=== PATIENT | female | born 1955 | race Caucasian/White ===

== ENCOUNTER → 2017-10-24 15:22 | Outpatient (CLI) | payer BC, SELFPAY ==
--- NOTE | 2017-10-24 15:37 | MM_ITS ---
MM Dig screening mamm BI w/CAD CAD Screening COMPARISON: Digital mammograms 10/21/2016 and 10/21/2015 INDICATION: There is no personal or family history of breast cancer TECHNIQUE: Standard CC and MLO images were obtained. R2 CAD reviewed. FINDINGS: Moderate fiber glandular densities are seen in central portions of both breasts. The findings are bilateral and symmetrical. There is no suspicious lesion and no suspicious microcalcifications. IMPRESSION: Stable exam with no suspicious lesion seen recommend yearly follow-up BI-RADS Category: 1 Negative RECOMMENDED FOLLOW-UP: 1YR - 1 YEAR FOLLOW-UP (A letter has been sent to the patient regarding results of the study.)
--- NOTE | 2017-10-24 15:37 | XR_ITS ---
XR DEXA axial skeleton HISTORY: ITS.REASON: POST MENOPAUSAL ORDERING PHYSICIAN: Richard Thompson MD PATIENT AGE: 62 years COMPARISON: None FINDINGS: The BMD measured at the AP Spine L1-L4 is 1.205 g/cm squared with a T score of 0.2 . This is considered normal according to the World Health Organization criteria. Fracture risk is low. Left femoral neck density has a T score of -0.6 which is within normal limits. IMPRESSION: Normal bone density. Follow-up exam recommended in October 2019
== END ==
PROVIDERS: Family Provider Family Medicine; PCP Family Medicine; Visit Provider Family Medicine
DX: Z12.31 Encounter for screening mammogram for malignant neoplasm of breast (principal); Z78.0 Asymptomatic menopausal state
CPT/HCPCS: 77067; 77080

== ENCOUNTER → 2017-12-22 14:31 | Outpatient (CLI) | payer BC, SELFPAY ==
--- NOTE | 2017-12-22 14:36 | MR_ITS ---
MR cervical spine wo con, MR 3-d myelogram/MRCP Ordering Physician: Natalie Montez Patient Age: 62 years: Female HISTORY: ITS.REASON: CERVICAL SPINE PAIN Neck pain and stiffness one year. Also dizzy when moves head and neck too fast. TECHNIQUE: Sagittal STIR, T1, T2, axial T1 and T2. On 1.5T Siemens wide bore MRI. 3-D MR myelogram image set obtained & performed on MRI workstation. Additional sagittal thin section T2 weighted dataset obtained from this latter acquisition as well (---76 CPT) COMPARISON : Plain films of C-spine 07/20/2017 . FINDINGS Cranial cervical junction is normal. Generous volume underlying osseous spinal canal C2/3 disc intact. Cord normal. The second C3/4. Minimal small focal central disc protrusion. C4/5. Disc intact. C5/6. Disc space narrowing and spondylosis. Mainly Hard disc posteriorly with additional uncovertebral hypertrophy most pronounced on the left.. This leftward spurring and mainly hard disc does efface the thecal sac,,. The leftward spurring and hard disc effaces the cervical cord to the left. Minor bilateral encroachment due to the posterior spurring and was nicely demonstrated on previous plain film C-spine July 2014 as well.. C6/7. Degenerative disc space narrowing. Mild Reactive endplate changes posteriorly at the narrowed disc space. Broad-based mixed disc protrusion. Disc extends slightly beyond the osteophytes at this level to abut the cervical cord. There is some slight flattening of the cervical cord to the left due to such. It C7/T1 disc intact T1/T2 scant central disc protrusion T2/T3.. Focal disc protrusion/mild focal disc herniation is seen right paracentral at this level... It is seen only on the sagittal images was not included with the axial images but is a notable finding.. T3/4 disc is the lowest disc imaged, included & unremarkable. There is some mild facet hypertrophy at this level. Only minor Degenerative facet changes are seen throughout the C-spine. But no exuberant facet hypertrophy noted.. The facet and posterior element hypertrophy become slightly more evident at the upper T-spine. 3-D MR myelogram image set shows shows only minimal indentation upon the anterior aspect of thecal sac at C6/7 & C5/6.. Because of the generous caliber thecal sac there is left impact from these features upon the on the 3-D myelogram benign initially expected from axial image.. IMPRESSION:...... 1. Degenerative disc changes oh with Cervical spondylosis most pronounced C5/C6 & C6/7. . Moderate focal disc herniation to the right at T 2/3 also noted C5-C6. Disc space narrowing with diffuse posterior hypertrophic ridging. Spurring & uncovertebral hypertrophy most pronounced to left paracentral or features mildly effaces the left aspect of cervical cord. C6/7. Degenerative disc space narrowing broad-based mixed disc protrusion.Broad-based disc/osteophyte just abuts and slightly flattens the cervical cord at midline and to the left.... T2/3.: Only the sagittal images demonstrate this focal disc herniation right paracentral region
== END ==
PROVIDERS: Family Provider Family Medicine; PCP Family Medicine; Visit Provider Nurse Practitioner
DX: M54.2 Cervicalgia (principal)
CPT/HCPCS: 72141; 76376

== ENCOUNTER → 2018-02-12 13:56 | Outpatient (CLI) | payer BC, SELFPAY ==
[2018-02-12 16:45] LABS: Blood Urea Nitrogen 13 mg/dL (7-18); Creatinine,Serum 0.98 mg/dL (0.55-1.02); Estimated Glomerular Filt Rate 57 ml/min (>60); GFR (African American) 69 ML/MIN (>60)
== END ==
PROVIDERS: Visit Provider Physician Assistant Medical
DX: Z00.00 Encounter for general adult medical examination without abnormal findings (principal)
CPT/HCPCS: 36415; 82565; 84520

== ENCOUNTER → 2018-02-15 08:46 | Outpatient (CLI) | payer BC, SELFPAY ==
--- NOTE | 2018-02-15 08:51 | MR_ITS ---
MR lumbar spine wo con, MR 3-d myelogram/MRCP HISTORY: LBP. Rt buttox pain. Symptoms XYRS. ITS.REASON: LOW BACK PAIN ORDERING PHYSICIAN: Curry Rhodes PATIENT AGE: 62 years Comparison: None TECHNIQUE: Standard multiplanar multiecho sequences are performed without contrast. 3-D MIP and myelographic images are also rendered and reviewed FINDINGS: The spinal cord ends at the L1-L2 level. There is mild lumbar scoliosis convex left which measures 13 degrees. T12-L1: Unremarkable. L1-L2: There is a bulging disc with a small central disc protrusion/herniation for a slightly eccentric toward the left without obvious impingement L2-L3: Concentric bulging disc along with facet and ligamentum flavum hypertrophy with mild bilateral lateral recess narrowing. There is 6 mm right lateral translation of L2 on L3. L3-L4: Degenerative disc disease with concentric bulging disc. There is some mild left foraminal disc protrusion as well. There is moderate to severe right foraminal narrowing and moderate left foraminal narrowing L4-L5: Degenerative disc disease with concentric bulging disc which is eccentric toward the right with severe facet and ligamentum flavum hypertrophy with severe bilateral lateral recess narrowing and moderate right foraminal narrowing and moderate to severe left foraminal narrowing. There is transverse narrowing of the canal at 8 mm. L5-S1: Degenerative disc disease L5-S1 with bulging disc along with facet and ligamentum flavum hypertrophy there is an oval area of isoechogenicity measuring 12 mm x 6 mm in the left foraminal region and may be due to small disc osteophyte complex with resultant severe left-sided foraminal narrowing. Incidental note made of a small left renal cyst. IMPRESSION: 1. Abnormal MRI of the lumbar spine with multilevel lumbar spondylosis with degenerative disc disease, disc bulges and facet ligamentum flavum hypertrophy with foraminal narrowing and lateral recess narrowing. Lateral recess narrowing is most severe at L4-L5 with transverse canal stenosis at that level. Please see above for detailed description at each level 2. Bulging disc with small central disc protrusion at L1-L2 slightly eccentric toward the left. 3. Bulging disc with small disc osteophyte complex in the left foramen at L5-S1 with severe foraminal narrowing on the left. Please see above for detailed description at each level
--- NOTE | 2018-02-15 09:52 | CT_ITS ---
CT angio neck INDICATION: Syncope ITS.REASON: BLACKOUT SPELL ORDERING PHYSICIAN: Curry Rhodes PATIENT AGE: 62 years COMPARISON: None TECHNIQUE: Axial images are obtained following the bolus intravenous administration 100 mL's of Isovue-370 contrast. Sagittal and coronal reformatted and 3-D images are reviewed as well. All CT scans at the facility use one or more dose reduction, viz: automated exposure control; ma/kV adjustment per patient size (including targeted exams where dose is matched to indication; i.e. head); or iterative reconstruction technique. FINDINGS: The superior aspect of the aortic arch and great vessels have an unremarkable appearance with no stenosis. There is some minimal intimal thickening of the ostium left subclavian artery. The common carotid arteries are unremarkable and the internal carotid arteries are unremarkable. No stenosis. No significant plaque, aneurysm, or dissection is evident within the extracranial carotids. There is small amount of calcific plaque within the internal carotids intercavernous portion of the carotid arteries but no significant stenosis. The study was continued throughout the brain showing no evidence of aneurysm of the vessels of the basilar artery and vertebral arteries are unremarkable throughout their course. No intracranial mass or intracranial enhancement. The anterior aspect of the frontal lobe is not excluded in the exam. Scattered small nodes are present in the neck. There are centrilobular emphysematous changes in the upper lobes. IMPRESSION: 1. Negative CTA of the neck and head. No stenosis, aneurysm, or dissection 2. Minimal amount of calcific plaque in the cavernous and suprasellar portion of the ICAs without stenosis. 3. Centrilobular emphysema in the upper lobes
== END ==
PROVIDERS: Family Provider Family Medicine; PCP Family Medicine; Visit Provider Neurological Surgery
DX: M54.5 Low back pain (principal)
CPT/HCPCS: 70498; 72148; 76376; Q9967

== ENCOUNTER → 2018-06-29 14:21 | Outpatient (CLI) | payer BC, SELFPAY ==
--- NOTE | 2018-06-29 14:28 | CT_ITS ---
CT chest wo con HISTORY: ITS.REASON: PULMONARY NODDULE,H/O NICOTINE DEPENDENCE ORDERING PHYSICIAN: Natalie Montez PATIENT AGE: 63 years COMPARISON: 05/19/2017 Technique: Axial images obtained with sagittal and coronal reformats. All CT scans at the facility use one or more dose reduction, viz: automated exposure control, ma/kV adjustment per patient size (including targeted exams where dose is matched to indication, i.e. head), or iterative reconstruction technique. FINDINGS: No mediastinal or hilar mass or adenopathy. There are calcified nodes in the mediastinum and flori. Normal heart size. No evidence of pericardial effusion. There are centrilobular emphysematous changes 4 mm nodule right upper lobe anteriorly image #24 not readily apparent on the previous exam. 6 mm noncalcified nodule right middle lobe image #55 not significantly changed No lobar consolidation. No effusions or infiltrates. Upper abdominal images show right nephrolithiasis with 2 stones along the lower pole of the right kidney 4 and 5 mm IMPRESSION: 1. Stable right middle lobe nodule is 6 mm. Continued follow-up recommended. 2. New 4 mm nodule in the right upper lobe. Consider 6 month follow-up 3. Centrilobular emphysema
== END ==
PROVIDERS: PCP Family Medicine; Visit Provider Nurse Practitioner
DX: R91.1 Solitary pulmonary nodule (principal); Z87.891 Personal history of nicotine dependence
CPT/HCPCS: 71250

== ENCOUNTER → 2018-10-30 15:50 | Outpatient (CLI) | payer BC, SELFPAY ==
--- NOTE | 2018-10-30 15:58 | MM_ITS ---
MM Dig screening mamm BI w/CAD CAD Screening COMPARISON: Digital mammograms with CAD 10/21/2016 and 10/24/2017 INDICATION: There is no personal or family history of breast cancer TECHNIQUE: Standard CC and MLO images were obtained. R2 CAD reviewed. FINDINGS: Moderate scattered fibroglandular densities are seen throughout both breasts. There is no suspicious lesion and no suspicious microcalcifications. IMPRESSION: Moderate breast density with no suspicious lesion seen BI-RADS Category: 1 Negative RECOMMENDED FOLLOW-UP: 1YR - 1 YEAR FOLLOW-UP (A letter has been sent to the patient regarding results of the study.)
== END ==
PROVIDERS: PCP Family Medicine; Visit Provider Family Medicine
DX: Z12.31 Encounter for screening mammogram for malignant neoplasm of breast (principal)
CPT/HCPCS: 77067

== ENCOUNTER 2019-01-11 13:00 | Outpatient (RCR) | payer BC, SELFPAY ==
--- NOTE | 2018-11-22 14:33 | HMH.PTOPEV ---
PT Outpatient Evaluation Rehab PT Outpatient Evaluation Start: 11/22/18 13:36 Freq: Status: Active Protocol: Document 11/22/18 13:36 LALA (Rec: 11/22/18 14:33 LALA [id number]) Electronically Signed By Prashant Medellin, PT 11/22/18 13:36 Outpatient Therapy Subjective History Subjective History Pt reports h/o chronic LBP over the last 20-30 yrs. Most recent exacerbation has involved inermittent L sided LBP with some referred pain into the L glut mm area. Pt reports kineso-tape has improved R sided LBP, however, still has episodes of LBP (L sided) w/yardwork, housework, etc. MRI of lumbar spine, DDD, spondylosis Chief Complaint Pain,Stiff Symptom Type Ache Symptoms Relieved By Rest/Positioning,Heat Symptoms Aggravated By Bending/Stooping,Physical Activity,Twisting,Lifting Prior Functional Limitations Lifting,Housework,Bending/ Stooping Current Functional Limitations Lifting,Housework,Bending/ Stooping Symptom Description Constant but Variable Level of pain today (0-10) 2 Pain scale - at its best (0-10) 1 Pain scale - at its worst (0-10) 9 Lumbopelvic Eval Posture Thoracic Spine Posture Standing Position Neutral Lumbar Spine Posture Standing Position Flattened Assistive device Assistive Devices None / NA Gait Observation General Gait Pattern Observation No Deviations/Normal Palapation tenderness bilateral lumbar spinal tenderness Yes: 2-3/4 paraspinal tenderness Yes: 2/4 Lumbar/Sacral Palpation Findings Tenderness Accessory Movement L4 bilateral L5 bilateral Range of Motion Lumbar Spine Active Flexion Range of 0-50 Motion (degrees) Lumbar Spine Active Extension Range of 0-15 Motion (degrees) Left Lumbar Spine Lateral Flexion Active 0-15 Range of Motion (degrees) Right Lumbar Spine Lateral Flexion 0-15 Active Range of Motion (degrees) Lumbar Spine ROM Limitations Pain Manual Muscle Test Bilateral Knee Extension Strength Grade 5 Normal Knee Flexion Strength Grade 5 Normal Hip Flexion Strength Grade 4- Good- Hip Abduction Strength Grade 4- Good- Hip Adduction Strength Grade 4- Good- Hip External Rotation Strength Grade 4 Good Hip Internal Rotation Strength Grade 4- Good- Extensor Hallucis Longus Strength Grade 5 Normal Ankle
--- NOTE | 2018-12-21 13:49 | HMH.RHREAS ---
Rehab Reassessment Rehab OP Re-assessment Start: 12/21/18 13:39 Freq: Status: Active Protocol: Document 12/21/18 13:39 LALA (Rec: 12/21/18 13:48 LALA [id number]) Electronically Signed By Prashant Medellin, PT 12/21/18 13:39 Rehab Re-assessment Subjective Subjective PT REPORTS 0-2/10 LBP ON VAS THIS PM, AND FEELS 90% BETTER OVERALL SINCE I EVAL Objective Objective Notes AROM L-SPINE FLX 0-90, EXT 0- 35, B SB 0-40 MMT: B HIP FLX 4/5, B QUAD 5/5 , B HS 5/5, B DF 5/5 TTP: B PIRI 08/10 Assessment Progress Assessment Progressing as Expected Assessment Notes PT W/IMPROVED ROM, TTP, AND STRENGTH Patient goals met STG'S 02/10 LTG'S 11/12 Goals Not Met LTG'S 11/12 Plan Plan PT TO CONT. W/SKILLED P.T. TO MAKE FURTHER IMPROVEMENTS IN ROM, STRENTGH, AND TTP TO ALLOW FOR OPTIMAL FUNCTION Frequency of Therapy 1-2X/WK Duration of therapy 3-4WKS Time and Billing Re-Eval Time 15 Re-Eval Billing Units 1 PHYSICIAN CERTIFICATION: I certify the specified therapy services for Bianca Gutierrez are required, authorized, and reviewed every 30 days.
== END 2019-01-11 13:05 | disposition home or self-care (01) ==
LOC: PT 13:00
PROVIDERS: Visit Provider Nurse Practitioner Family
DX: M51.36 Other intervertebral disc degeneration, lumbar region (principal); M51.26 Other intervertebral disc displacement, lumbar region
CPT/HCPCS: 97010; 97012; 97014; 97110; 97163; 97164; G0283

== ENCOUNTER → 2019-01-23 13:29 | Outpatient (CLI) | payer BC, SELFPAY ==
--- NOTE | 2019-01-23 13:36 | CT_ITS ---
CT chest wo con HISTORY: Follow-up lung nodules ITS.REASON: F/U LUNG NODULE ORDERING PHYSICIAN: Natalie Montez APRN PATIENT AGE: 63 years COMPARISON: 06/29/2018 Technique: Axial images were obtained. Sagittal, and coronal reformatted images are also generated and reviewed. All CT scans at the facility use one or more dose reduction, viz: automated exposure control, ma/kV adjustment per patient size (including targeted exams where dose is matched to indication, i.e. head), or iterative reconstruction technique. FINDINGS: No mediastinal or hilar mass. Small lymph node in the AP window 1.9 x 0.9 cm unchanged. Calcified nodes are present in the mediastinum and flori. COPD with centrilobular emphysematous changes once again noted. Previously noted 4 mm nodular opacity in the right upper lobe is no longer apparent. 6 mm right middle lobe nodule is unchanged. There are couple small fissural nodules on the right which are unchanged. Calcified granuloma is present in the right upper lobe posteriorly. No new nodules are evident. There is mild upper thoracic scoliosis convex right. No acute bony anomalies are apparent. IMPRESSION: 1. Overall stable CT appearance of the chest. No new nodules evident. Stable right millimeter right upper lobe nodule. Previously noted 4 mm right upper lobe nodule no longer apparent 2. Centrilobular emphysema with COPD
== END ==
PROVIDERS: PCP Nurse Practitioner; Visit Provider Nurse Practitioner
DX: Z09 Encounter for follow-up examination after completed treatment for conditions other than malignant neoplasm (principal); R91.8 Other nonspecific abnormal finding of lung field
CPT/HCPCS: 71250

== ENCOUNTER → 2019-02-08 15:12 | Outpatient (CLI) | payer BC, SELFPAY ==
--- NOTE | 2019-02-08 15:24 | US_ITS ---
US Kidney CLINICAL INDICATION: ITS.REASON: RENAL CYST ORDERING PHYSICIAN: Natalie Montez APRN PATIENT AGE: 63 years Comparison: None FINDINGS: The right kidney is 9 x 4 x 5 cm. No hydronephrosis evident. There is a small area of increased echogenicity in the lower pole the right kidney which could represent a small stone. Left kidney is 10 x 5 x 3 cm. A 10 mm cyst is present in the mid polar region of the left kidney. No hydronephrosis or other significant anomalies. IMPRESSION: 1 small left renal cyst. 2. Possible right nephrolithiasis
== END ==
PROVIDERS: PCP Family Medicine; Visit Provider Nurse Practitioner
DX: N28.1 Cyst of kidney, acquired (principal)
CPT/HCPCS: 76770

== ENCOUNTER → 2019-03-12 15:21 | Outpatient (CLI) | payer BC, SELFPAY | PROVIDERS: PCP Family Medicine; Visit Provider Internal Medicine Pulmonary Disease | DX: Z12.2 Encounter for screening for malignant neoplasm of respiratory organs (principal) ==

== ENCOUNTER → 2020-02-24 12:54 | Outpatient (CLI) | payer MEDICARE, BC, SELFPAY ==
--- NOTE | 2020-02-24 12:54 | CT_ITS ---
PROCEDURE: CT ABDOMEN PELVIS WO CON CLINICAL INDICATION: renal cyst Follow-up renal cyst COMPARISON: CHESTWO CT chest wo con from 01/23/2019 KIDNEY US Kidney from 02/08/2019 TECHNIQUE: Axial images obtained with sagittal and coronal reformats. All CT scans at the facility use one or more dose reduction, viz: automated exposure control, ma/kV adjustment per patient size (including targeted exams where dose is matched to indication, i.e. head), or iterative reconstruction technique. FINDINGS: The liver, gallbladder, spleen, adrenal glands, and pancreas have an unremarkable unenhanced appearance. There is a 10 mm stone in the mid aspect of the right ureter at the L4 level which is causing moderate to severe right hydronephrosis and proximal hydroureter. Previous ultrasound demonstrated a left renal cyst which is below limits of resolution on this unenhanced CT scan. No left renal mass evident There is a mild amount of retained colonic feces. No intestinal obstruction or free air. No pelvic mass or abnormal fluid collection. No evidence of appendicitis or diverticulitis. There is lumbar scoliosis convex left with degenerative disc disease in the lumbar spine. IMPRESSION: 1. 10 mm right mid ureteral stone with moderate to severe right-sided hydronephrosis and hydroureter. 2. Mild amount of retained colonic feces Dictated by: Lupillo Nolasco MD 02/25/2020 09:45 Electronically signed by Lupillo Nolasco MD in [place] 02/25/2020 09:45
--- NOTE | 2020-02-24 13:17 | CT_ITS ---
PROCEDURE: CT CHEST WO CON CLINICAL INDICATION: LUNG NODULES COMPARISON: CHESTWO CT chest wo con from 01/23/2019 CT ABDOMEN PELVIS WO CON from 02/24/2020 TECHNIQUE: Axial images obtained with sagittal and coronal reformats. All CT scans at the facility use one or more dose reduction, viz: automated exposure control, ma/kV adjustment per patient size (including targeted exams where dose is matched to indication, i.e. head), or iterative reconstruction technique. FINDINGS: HEART AND MEDIASTINAL STRUCTURES: Unremarkable. LUNGS AND PLEURAL SPACES: Centrilobular emphysema. There is a stable 6 mm nodule in the right middle lobe. There are atelectatic or fibrotic changes in the right lung base and to lesser degree in the left lung base.. No suspicious pulmonary nodules evident. BONY STRUCTURES: Thoracic scoliosis convex right UPPER ABDOMEN: Please see abdomen report ADDITIONAL FINDINGS: No other significant abnormalities. IMPRESSION: COPD/centrilobular emphysema. Stable right middle lobe nodule with atelectatic or fibrotic changes in the lung bases. No suspicious nodules apparent Dictated by: Lupillo Nolasco MD 02/25/2020 09:28 Electronically signed by Lupillo Nolasco MD in [facility] 02/25/2020 09:28
--- NOTE | 2020-02-24 13:18 | MM_ITS ---
PROCEDURE: MM DIG SCREENING MAMM BI W/CAD Digital Breast Tomosynthesis Included CLINICAL INDICATION: SCREENING Screening for breast cancer COMPARISON: [facility] DIG MAMM-SCREEN GEMA W/CAD from 10/21/2016 [facility] MM Dig screening mamm BI w/CAD from 10/24/2017 [facility] MM Dig screening mamm BI w/CAD from 10/30/2018 TECHNIQUE: Standard CC and MLO images and 3D Tomosynthesis was obtained. R2 CAD reviewed. FINDINGS: There is average fibroglandular tissue. No malignant appearing mass or malignant-appearing microcalcification. Benign-appearing calcifications are present in the right breast. IMPRESSION: BI-RAD Category: 2 Benign Finding(s) FOLLOW-UP: 1YR 1 Year Follow-up the (A letter has been sent to the patient regarding results of the study.) Dictated by: Lupillo Nolasco MD 02/24/2020 14:50 Electronically signed by Lupillo Nolasco MD in [place] 02/24/2020 14:50
== END ==
PROVIDERS: PCP Nurse Practitioner; Visit Provider Urology
DX: N28.1 Cyst of kidney, acquired (principal); Z12.31 Encounter for screening mammogram for malignant neoplasm of breast; R91.8 Other nonspecific abnormal finding of lung field
CPT/HCPCS: 71250; 74176; 77063; 77067

== ENCOUNTER → 2020-02-24 13:01 | Outpatient (CLI) | payer SELFPAY ==
--- NOTE | 2020-02-24 13:20 | CT_ITS ---
PROCEDURE: CT HEART W CALCIUM SCORE CLINICAL HISTORY: SCREENING COMPARISON: CHESTWO CT chest wo con from 06/29/2018 TECHNIQUE: Axial images obtained with sagittal and coronal reformats. All CT scans at the facility use one or more dose reduction, viz: automated exposure control, ma/kV adjustment per patient size (including targeted exams where dose is matched to indication, i.e. head), or iterative reconstruction technique. FINDINGS: Coronary artery calcium score is 0 indicating no identifiable plaque with very low cardiovascular disease risk. Incidental findings include old granulomatous disease with calcified nodes. Small amount fluid is present in the superior recess of the pericardium. There are scattered atelectatic changes with COPD and centrilobular emphysema. A 6 mm nodule is present in the right middle lobe and is not significantly changed from 06/29/2018 IMPRESSION: No identifiable calcific plaque with very low cardiovascular disease risk. COPD with centrilobular emphysema with stable right middle lobe nodule Dictated by: Lupillo Nolasco MD 02/24/2020 16:02 Electronically signed by Lupillo Nolasco MD in [place] 02/24/2020 16:02
== END ==
PROVIDERS: PCP Family Medicine; Visit Provider Internal Medicine Cardiovascular Disease
DX: Z13.6 Encounter for screening for cardiovascular disorders (principal)
CPT/HCPCS: 75571

== ENCOUNTER → 2020-02-27 12:30 | Outpatient (CLI) | payer MEDICARE, BC, SELFPAY ==
--- NOTE | 2020-02-27 12:37 | XR_ITS ---
PROCEDURE: XR KUB CLINICAL INDICATION: kidney stone COMPARISON: CT ABDOMEN PELVIS WO CON from 02/24/2020 FINDINGS: There is an 8 mm calcific density to the right of L4 consistent with a mid ureteral stone as noted on the recent CT scan. There is a mild amount of retained colonic feces and there is lumbar scoliosis convex left. Other findings:None. IMPRESSION: 8 mm right mid ureteral stone Dictated by: Lupillo Nolasco MD 02/27/2020 15:31 Electronically signed by Lupillo Nolasco MD in [place] 02/27/2020 15:31
[2020-02-27 19:12] LABS: Coronavirus 19 IgG Antibody Negative (Negative); Coronavirus 19 IgM Antibody Negative (Negative)
== END ==
PROVIDERS: PCP Family Medicine; Visit Provider Urology
DX: N20.0 Calculus of kidney (principal)
CPT/HCPCS: 36415; 74018; 86328

== ENCOUNTER → 2020-02-27 17:00 | Outpatient (CLI) | payer MEDICARE, BC, SELFPAY | PROVIDERS: Visit Provider Urology | DX: Z03.818 Encounter for observation for suspected exposure to other biological agents ruled out (principal) | CPT/HCPCS: 36415; 86328 ==

== ENCOUNTER 2020-02-28 12:42 | Day surgery (SDC) | payer MEDICARE, BC, SELFPAY ==
[2020-02-28] VITALS (10 sets, daily range): BP systolic 102–145; BP diastolic 59–75; PULSE 50–64; RESP 12–18; TEMP 36.3; O2SAT 93–99; BMI 23.6
[2020-02-28 13:33] LABS: Anion Gap 12.6 mEq/L (5-15); Blood Urea Nitrogen 15 mg/dl (7-17); Calcium 9.6 mg/dl (8.4-10.2); Carbon Dioxide 28 mmol/L (22.0-30.0); Chloride 104 mmol/L (98-107); Creatinine Clearance Estimated 60 mL/min (50-200); Estimated Glomerular Filt Rate 63 ml/min (>60); GFR (African American) 76 ML/MIN (>60); Glucose 110 mg/dl (74-100); Potassium 4.6 mmoL/L (3.5-5.1); Sodium 140 mmol/L (136-145)
[2020-02-28 13:38] LABS: Basophils # 0.1 K/mm3 (0-0.2); Eosinophils # 0.2 K/mm3 (0.0-0.4); Eosinophils % 1.9 % (0.1-12.0); Hematocrit 44.3 % (37.0-47.0); Hemoglobin 13.9 g/dL (12.2-16.2); Lymphocytes # 2.9 K/mm3 (0.7-4.5); Lymphocytes % 25.1 % (10-50); Mean Corpuscular HGB Conc 31.5 g/dL (31.8-35.4); Mean Corpuscular Hemoglobin 30.8 pg (27.0-31.2); Mean Platelet Volume 10.3 fl (7.4-10.4); Monocytes # 0.7 K/mm3 (0.1-1.0); Monocytes % 6.1 % (1.7-9.3); Neutrophils # 7.7 K/mm3 (1.8-7.8); Neutrophils % 65.9 % (37.0-80.0); Platelet Count 320 K/mm3 (142-424); Red Blood Count 4.52 M/mm3 (4.20-5.40); Red Cell Distribution Width 14.2 % (11.5-17.5); White Blood Count 11.7 K/mm3 (4.8-10.8)
--- NOTE | 2020-02-28 14:45 | P.PN_ITS ---
[facility] Anesthesia Checklist - Structural Data Admitted From: Home Planned Operative Procedure/s: cysto w stent Consent for Planned Operative Procedure(s) Verified: Yes - Additional verifications Anesthesia Reactions: No (pt. states she wants to sleep after) Hx Blood Transfusions: No Blood Transfusion Reaction: No - Airway Assessment C-Spine Mobility Assessed: Yes TMJ Mobility Assessed: Yes Dentition: Good Dentition - Neurological Assessment Level of Consciousness: Awake, Alert, Appropriate - Anesthesia Plan Anesthesia Risk discussed: Yes Anesthesia Plan: Verified ASA Class: II Anesthesia Type: General [facility] History I have reviewed the patient's past medical history: Yes Medical History: Reports:: Kidney Stones Denies:: Cancer, Diabetes Mellitus Type 1, Diabetes Mellitus Type 2, Internal Pacemaker, MRSA, Seizures *Have you ever received a pneumonia vaccine?: Yes *Have you received a flu vaccine this season?: Yes Other Medical History: Denies: Blood Transfusion Reaction Anesthesia experience/problems:: none Laterality Cases: Bilateral: Arthroscopy Knee, Cataract, Tonsillectomy Other Surgeries: Yes: No Previous Surgery. No: Pacemaker Amputation: No Fractures: Yes - *Social History Last grade of school completed: Some college Smoking Status: Current every day smoker Tobacco Type: cigarettes # Packs/Day (cigarettes): 1 #Yrs smoked (if former smoker): 30 Alcohol Intake: current Alcohol Intake Frequency:: holidays/special occasions only Substance Use Type: denies use *Occupational Status:: retired Housing: house Household Members: family *Travel in the last 8 weeks: None Family Hx:: Unable to obtain
--- NOTE | 2020-02-28 14:56 | FL_ITS ---
PROCEDURE: FLUORO UP TO 1 HOUR CLINICAL INDICATION: STENT PLACEMENT IN OR COMPARISON: No exams were available for comparison FINDINGS: Fluoro time: 2 minutes and seconds. 2 images are submitted showing a stent in place in the region of the right ureter. IMPRESSION: C-arm utilized for stent placement Dictated by: Lupillo Nolasco MD 02/28/2020 16:06 Electronically signed by Lupillo Nolasco MD in [place] 02/28/2020 16:06
--- NOTE | 2020-02-28 15:01 | HMH.ANESI ---
[facility] Anesthesia Record Part I Intake, IV Amount: 1,200 Estimated blood loss (mL): 0 Urine output (mL): 0 Blood Pressure: 145/75 SaO2: 96 Pulse Rate: 52 Respiratory Rate: 12 Temperature: 97.4 F Patient is:: Awake, Stable Stable to PACU at:: 15:00
--- NOTE | 2020-02-28 15:37 | HMH.OPNOTE ---
Date of procedure: 02/28/20 Pre-op Diagnosis:: Right ureteral stone Post-op Diagnosis:: Same Procedure performed:: Cystoscopy with stone manipulation and right stent placement Surgeon:: Prince Ballard MD BOLT LOADER:: Jh Lewis Anesthesia: GETA Estimated blood loss (mL): 0 Clinical Note:: 64-year-old white female with incidentally noted 1 cm proximal right ureteral stone with obstruction. Patient denies any right-sided flank pain. Her white count and creatinine are normal. Operative findings:: 1 cm right ureteral stone that is not well calcified. Operative note:: Patient taken to the operating room after informed consent was obtained. She was placed on the operating table in the supine position and prepped and draped in the standard surgical fashion. Preoperative antibiotics and sequential compression devices placed. She was then placed into the dorsolithotomy position and prepped and draped in the standard surgical fashion. A 22 [place] cystoscope was attempted to be placed into the urethral meatus but it was stenotic. The urethra was dilated from 16-24 [place]er. The 22 [place] scope then passed into the bladder and the bladder examined in a systematic fashion. There is no evidence of mucosal abnormalities stones diverticula or trabeculation. Ureteral orifices were in their normal anatomic position. A 5 [place] ureteral catheter passed into the right ureteral orifice and passed up to the level of the stone. Under fluoroscopy the ureter took a J hook distal to the stone and the ureteral catheter would not pass around the tortuous ureter. We then passed a 0.035 sensor guidewire through the ureteral catheter and was able to manipulate it by the stone. This straightened out the ureter and we were able to push the stone more proximally but but cannot pass it all the way into the renal pelvis. We removed the ureteral catheter and passed a 4.8 x 24 [place]er stent over the guidewire. This wire was removed and there was a good curl noted proximally and distally. The string was left on for later removal. The bladder drained scope removed. Urojet placed into the urethra. Patient tolerated procedure well no complications. She was transported to the recovery in stable condition. Condition: stable Disposition: PACU Specimens:: None Complications:: None
== END 2020-02-28 16:16 | disposition home or self-care (01) ==
LOC: OR 12:45
PROVIDERS: PCP Family Medicine; Visit Provider Urology
PROC: (CPT 52330; principal; 2020-02-28 14:15)
DX: N20.1 Calculus of ureter (principal); N13.5 Crossing vessel and stricture of ureter without hydronephrosis; Z88.0 Allergy status to penicillin; Z79.899 Other long term (current) drug therapy; Z87.442 Personal history of urinary calculi; Z90.89 Acquired absence of other organs; Z72.0 Tobacco use; Z87.39 Personal history of other diseases of the musculoskeletal system and connective tissue
CPT/HCPCS: 52330; 76000; 80048; 85025; 96374; C2617; J1956; J2405

== ENCOUNTER → 2020-03-09 16:54 | Outpatient (CLI) | payer MEDICARE, BC, SELFPAY | PROVIDERS: Visit Provider Urology | DX: N39.0 Urinary tract infection, site not specified (principal) | CPT/HCPCS: 87086 ==

== ENCOUNTER → 2020-03-19 12:22 | Outpatient (CLI) | payer MEDICARE, BC, SELFPAY ==
[2020-03-19 14:03] LABS: Coronavirus 19 IgG Antibody Negative (Negative); Coronavirus 19 IgM Antibody Negative (Negative)
[2020-03-20 08:33] LABS: Basophils # 0.2 K/mm3 (0-0.2); Basophils % 1.6 % (0.1-2.0); Eosinophils # 0.4 K/mm3 (0.0-0.4); Hematocrit 45.1 % (37.0-47.0); Lymphocytes % 19.1 % (10-50); Mean Corpuscular Volume 99.8 fl (81-99); Mean Platelet Volume 9.8 fl (7.4-10.4); Monocytes # 0.8 K/mm3 (0.1-1.0); Monocytes % 7.7 % (1.7-9.3); Neutrophils # 7.1 K/mm3 (1.8-7.8); Neutrophils % 67.6 % (37.0-80.0); Platelet Count 409 K/mm3 (142-424); Red Blood Count 4.52 M/mm3 (4.20-5.40); Red Cell Distribution Width 13.9 % (11.5-17.5); White Blood Count 10.4 K/mm3 (4.8-10.8)
[2020-03-20 08:42] LABS: Chloride 108 mmol/L (98-107); Potassium 4.8 mmoL/L (3.5-5.1); Sodium 142 mmol/L (136-145)
[2020-03-20 08:45] LABS: Anion Gap 10.8 mEq/L (5-15); Blood Urea Nitrogen 14 mg/dl (7-17); Calcium 9.9 mg/dl (8.4-10.2); Carbon Dioxide 28 mmol/L (22.0-30.0); Estimated Glomerular Filt Rate 63 ml/min (>60); GFR (African American) 76 ML/MIN (>60); Glucose 84 mg/dl (74-100)
== END ==
PROVIDERS: Visit Provider Urology
DX: Z01.818 Encounter for other preprocedural examination (principal)
CPT/HCPCS: 36415; 80048; 85025; 86328

== ENCOUNTER 2020-03-20 07:34 | Day surgery (SDC) | payer MEDICARE, BC, SELFPAY ==
[2020-03-18 08:51] VITALS: BMI 23.6
[2020-03-20] VITALS (13 sets, daily range): BP systolic 102–138; BP diastolic 61–91; PULSE 55–69; RESP 12–16; TEMP 36.4–36.8; O2SAT 93–98
--- NOTE | 2020-03-20 08:53 | HMH.ANESCL ---
[facility] Anesthesia Checklist - Patient Identification Patient Identification: Arm Band, Verbal (Name & ) - Structural Data Admitted From: Home Planned Operative Procedure/s: Right ESWL Consent for Planned Operative Procedure(s) Verified: Yes Verified Documents: Surgical Consent, History and Physical - NPO Status Verified Time NPO: 00:00 - Chart Verification Results Verified: CBC, BMP - Additional verifications Anesthesia Reactions: No (pt. states she wants to sleep after) Hx Blood Transfusions: No Blood Transfusion Reaction: No - Airway Assessment C-Spine Mobility Assessed: Yes TMJ Mobility Assessed: Yes Dentition: Poor Dentition - Neurological Assessment Level of Consciousness: Awake, Alert, Appropriate, Follows Commands Hx Seizures: No Numbness or tingling in extremities: No - Anesthesia Plan Anesthesia Risk discussed: Yes Anesthesia Plan: Verified ASA Class: III Anesthesia Type: General [facility] History I have reviewed the patient's past medical history: Yes Medical History: Reports:: Chronic Obstructive Pulmonary Disease (COPD), Depression, Kidney Stones Denies:: Cancer, Diabetes Mellitus Type 1, Diabetes Mellitus Type 2, Internal Pacemaker, MRSA, Seizures *Have you ever received a pneumonia vaccine?: Yes *Have you received a flu vaccine this season?: Yes Other Medical History: Denies: Blood Transfusion Reaction Anesthesia experience/problems:: No prior complications Laterality Cases: Bilateral: Arthroscopy Knee, Tonsillectomy Other Surgeries: Yes: Tubal Ligation. No: Pacemaker Amputation: No Fractures: Yes Comment: Oral sx - *Social History Last grade of school completed: Some college Smoking Status: Current every day smoker Tobacco Type: cigarettes # Packs/Day (cigarettes): 1 #Yrs smoked (if former smoker): 30 Alcohol Intake: never Alcohol Intake Frequency:: holidays/special occasions only Substance Use Type: denies use *Occupational Status:: retired Housing: house Household Members: family *Travel in the last 8 weeks: Inside the [facility] Family Hx:: Unable to obtain
--- NOTE | 2020-03-20 10:12 | HMH.ANESI ---
[facility] Anesthesia Record Part I Intake, IV Amount: 500 Estimated blood loss (mL): 0 Urine output (mL): 0 (NM) Blood Products used (#): none Blood Pressure: 138/75 SaO2: 96 Pulse Rate: 68 Respiratory Rate: 12 Temperature: 98.3 F Patient is:: Awake, Stable Stable to PACU at:: 10:07
--- NOTE | 2020-03-20 10:29 | HMH.OPNOTE ---
Date of procedure: 03/20/20 Pre-op Diagnosis:: 10 x 5 mm right proximal ureteral stone Post-op Diagnosis:: Same Procedure performed:: Right ESWL Surgeon:: Prince Ballard MD HOTEL MAINTENANCE TECHNICIAN:: William Silva Anesthesia: GETA Estimated blood loss (mL): 0 Clinical Note:: Patient with a 10 x 5 mm proximal right ureteral stone status post stent placement 2 to 3 weeks ago presents for ESWL management. Operative findings:: Fluoroscopy shows the stent in good position. The stone remains in the proximal right ureter and is not well calcified that is calcified well enough to visualize. Operative note:: Patient taken to the operating room after informed consent was obtained. She was placed on the operating table in the supine position and general anesthesia administered. Preoperative antibiotics and sequential compression devices placed. In the supine position she was positioned so that F2 the lithotripter was focused onto the right proximal ureteral stone. Stone is not well calcified but is visible enough to treat. 4000 shockwaves were delivered to the stone. She tolerated procedure well there are no complications. She was transferred to recovery in stable condition. Condition: stable Disposition: same day Specimens:: None Complications:: None
--- NOTE | 2020-03-20 15:19 | HMH.ANESII ---
[facility] Anesthesia Record Part II Discharge Time: 10:41 Destination: Surgical Day Care (OP Surgery) PACU nurse assessment reviewed?: Yes Patient Condition:: Good Anesthesia Complications:: None Swallowing reflex intact?: Yes Cyanosis?: No Blood Pressure: 107/62 Pulse Rate: 62 Temperature: 97.5 F Mental Status: Alert & Oriented Pain level:: 0 Nausea and/or vomitting:: None Intake, IV Amount: 0
== END 2020-03-20 11:40 | disposition home or self-care (01) ==
LOC: OR 07:36
PROVIDERS: PCP Family Medicine; Visit Provider Urology
PROC: (CPT 50590; principal; 2020-03-20 09:00)
DX: N20.1 Calculus of ureter (principal); J44.9 Chronic obstructive pulmonary disease, unspecified; F32.9 Major depressive disorder, single episode, unspecified; Z87.442 Personal history of urinary calculi; Z90.89 Acquired absence of other organs; Z72.0 Tobacco use; Z87.39 Personal history of other diseases of the musculoskeletal system and connective tissue; Z79.899 Other long term (current) drug therapy
CPT/HCPCS: 50590; 96374; J1956; J2405

== ENCOUNTER → 2020-03-24 09:35 | Outpatient (CLI) | payer MEDICARE, BC, SELFPAY ==
--- NOTE | 2020-03-24 09:39 | XR_ITS ---
PROCEDURE: XR KUB CLINICAL INDICATION: URETERAL STONE COMPARISON: CT CT ABDOMEN PELVIS WO CON from 02/24/2020 FINDINGS: Gas pattern-The bowel gas pattern is unremarkable. No obvious obstruction. There is a moderately large amount of stool in the ascending and descending colon. There is a right ureteral stent extending from the renal pelvis to the bladder floor. The dominant calculus seen proximal right ureter on the recent CT scan is not seen and no definite fragments remain along the course of the stent. A large amount of stool obscures the mid and lower pole right kidney however no calculi were seen in the mid and lower pole of the right kidney on the recent CT scan. IMPRESSION: Satisfactory position right ureteral stent no definite residual fragments seen along the course of the stent or in the expected location of the urinary bladder. Dictated by: Dr. Fabian Arthur MD 03/24/2020 10:30 Dr. Fabian Arthur MD in [place] 03/24/2020 10:30
[2020-04-10 17:48] LABS: Ca oxalate dihydrate 40%
[2020-04-10 17:49] LABS: Photo NOT AVAILABLE
== END ==
PROVIDERS: PCP Family Medicine; Visit Provider Urology
DX: N20.1 Calculus of ureter (principal)
CPT/HCPCS: 74018; 82370

== ENCOUNTER → 2020-03-24 15:14 | Outpatient (CLI) | payer MEDICARE, BC, SELFPAY | PROVIDERS: Visit Provider Urology | DX: N20.0 Calculus of kidney (principal) | CPT/HCPCS: 74018; 82370 ==

== ENCOUNTER → 2020-09-14 15:16 | Outpatient (CLI) | payer MEDICARE, BC, SELFPAY ==
[2020-09-14 17:50] LABS: Blood Urea Nitrogen 12 mg/dl (7-17); Estimated Glomerular Filt Rate 63 ml/min (>60); GFR (African American) 76 ML/MIN (>60)
== END ==
PROVIDERS: Visit Provider Nurse Practitioner
DX: R10.9 Unspecified abdominal pain (principal); K59.00 Constipation, unspecified
CPT/HCPCS: 36415; 82565; 84520

== ENCOUNTER → 2020-09-15 10:23 | Outpatient (CLI) | payer MEDICARE, BC, SELFPAY ==
--- NOTE | 2020-09-15 10:27 | CT_ITS ---
PROCEDURE: CT ABDOMEN PELVIS W CON CLINICAL INDICATION: Constipation for years, but increased recently, Lower back pain, COMPARISON: CT CT ABDOMEN PELVIS WO CON from 02/24/2020 TECHNIQUE: IV Contrast: 75ML Isovue 370 Oral Contrast None Axial images obtained with sagittal and coronal reformats. All CT scans at the facility use one or more dose reduction, viz: automated exposure control, ma/kV adjustment per patient size (including targeted exams where dose is matched to indication, i.e. head), or iterative reconstruction technique. FINDINGS: LOWER THORAX: There is a stable 6 mm nodule in the right middle lobe. ABDOMEN & PELVIS: The liver, spleen, adrenal glands,) Miguel are unremarkable. There is mild prominence of the right renal pelvis. Previously noted right ureteropelvic junction stone is no longer evident. There is minimal prominence of the left renal pelvis as well. No ureteral calculi are evident. There is a moderate amount of retained colonic feces throughout the colon. No evidence of appendicitis or diverticulitis. No evidence of small-bowel obstruction. No pelvic mass or abnormal fluid collections. There is some mild thickening of the jejunal loops in the mid abdominal region. There are degenerative changes in the lumbar spine with mild lumbar scoliosis convex left. IMPRESSION: 1. Constipation. 2. Thickened jejunal loops in the mid abdominal region. Enteritis is considered. Dictated by: Lupillo Nolasco MD 09/17/2020 08:42 Lupillo Nolasco MD in [place] 09/17/2020 08:42
--- NOTE | 2020-09-15 10:55 | MR_ITS ---
PROCEDURE: MR LUMBAR SPINE WO CON CLINICAL INDICATION: DDD LBP. PAIN WORSE ON LT. HX DDD. COMPARISON: MR SPLUMBWO MR lumbar spine wo con from 02/15/2018 TECHNIQUE: Standard multiplanar multiecho sequences are performed without contrast. 3-D MIP and myelographic images are also rendered and reviewed FINDINGS: There is normal alignment. The spinal cord ends at the L1 level. There is lumbar scoliosis convex left measuring 17 degrees by the Alcocer technique. L1-L2: Mild bulging disc. There is a small central disc protrusion which is slightly eccentric toward the left and may be slightly larger compared to the previous exam causing some impingement upon the thecal sac and cauda equina region but no obvious nerve impingement. L2-L3: Degenerative disc disease with bulging disc with type 1 endplate changes with facet and ligamentum hypertrophy. There is a small right paracentral disc protrusion resulting in right lateral recess narrowing and causing mild impingement upon the right L3 nerve root along with the facet and ligamentum hypertrophy. The right paracentral disc protrusion has developed since the previous exam. There is 7 mm right lateral translation of L2 on L3. L3-L4: Bulging disc along with facet and ligamentum hypertrophy. There is bilateral lateral recess narrowing and moderate right foraminal narrowing and mild left foraminal narrowing. The right lateral recess narrowing may be slightly worse compared to the previous exam. There is a small left foraminal disc protrusion contributing to the foraminal narrowing min is not significantly changed to somewhat less apparent. L4-5: Bulging disc which is eccentric toward the right. There is facet and ligamentum hypertrophy with resultant bilateral lateral recess narrowing and bilateral foraminal narrowing not significantly changed. There remains transverse narrowing of the canal not significantly changed. L5-S1: Degenerative disc disease with bulging disc with facet and ligamentum hypertrophy with bilateral foraminal narrowing. IMPRESSION: Abnormal MRI of the lumbar spine. There is multilevel lumbar spondylosis with bulging and protruding disc along with facet and ligamentum hypertrophy with varying areas of lateral recess and foraminal narrowing. Please see above for detailed description at each level. Dictated by: Lupillo Nolasco MD 09/17/2020 11:11 Lupillo Nolasco MD in [place] 09/17/2020 11:11
== END ==
PROVIDERS: PCP Family Medicine; Visit Provider Nurse Practitioner
DX: R10.9 Unspecified abdominal pain (principal); K59.00 Constipation, unspecified; M51.36 Other intervertebral disc degeneration, lumbar region
CPT/HCPCS: 72148; 74177; 76376; Q9967

== ENCOUNTER → 2020-10-13 15:02 | Outpatient (CLI) | payer MEDICARE, BC, SELFPAY | PROVIDERS: Visit Provider Specialist | DX: H53.2 Diplopia (principal); R42 Dizziness and giddiness | CPT/HCPCS: 36415; 82525 ==

== ENCOUNTER → 2020-10-22 14:11 | Outpatient (POV) | payer MEDICARE, BC, SELFPAY ==
[2020-10-22 14:29] VITALS: BP 117/74; PULSE 75; RESP 18; O2SAT 98; BMI 25.8
--- NOTE | 2020-10-26 09:10 | HMH.PMCON ---
Assessment and Plan (1) Degenerative joint disease (DJD) of lumbar spine Status: Chronic Category: Medical Code(s): M47.816 - Spondylosis without myelopathy or radiculopathy, lumbar region (2) Lumbar radiculopathy Status: Chronic Category: Medical Code(s): M54.16 - Radiculopathy, lumbar region (3) Back pain Status: Chronic Category: Medical Code(s): M54.9 - Dorsalgia, unspecified (4) Sacroiliitis Status: Chronic Category: Medical Code(s): M46.1 - Sacroiliitis, not elsewhere classified - Assessment and plan all Dx Assessment and Plan for all problems:: We will set the patient up for left SI joint injection given her symptomology I do believe this would benefit her. I will follow-up with her after this reassess her symptoms at that time she has been instructed to call the office if she has any issues. She is recently failed 6 months of conservative therapy including medication management and physical therapy. Dr. Rodríguez has reviewed this note and agrees with this plan of care. This note was dictated using voice recognition software and may contain errors or omissions HPI - Data of Consult Consult date: 10/22/20 Requesting Physician: Richelle Harvey APRN Primary Care Provider: Richard Thompson MD - Consult Narrative History of present illness: Ms. Gutierrez is a 65 year old female who presents today with low left back pain. Patient states that sitting for long periods of time makes it quite a bit worse. Patient states Aleve and heat decreases her pain. Patient's pain is worse on the left side. Patient does not have much radiation. Patient states that it is right across her lower back. Patient has had injections in the past with no relief. Patient has seen neurosurgery and is not a surgical candidate she is also completed chiropractic therapy and physical therapy recently with no relief. She is continuing on anti-inflammatories. Patient and I discussed potential SI joint injections. She has not had these in the past. She does have a positive Mariama's SI joint compression test Lazaro test and distraction test. CC: Richelle Harvey APRN [facility] History I have reviewed the patient's past medical history: Yes Medical History: Reports:: Chronic Obstructive Pulmonary Disease (COPD), Depression, Hyperlipidemia, Kidney Stones Denies:: Cancer, Diabetes Mellitus Type 1, Diabetes Mellitus Type 2, Internal Pacemaker, MRSA, Seizures *Have you ever received a pneumonia vaccine?: Yes *Have you received a flu vaccine this season?: Yes Other Medical History: Reports: Arthritis, Cataracts. Denies: Blood Transfusion Reaction Laterality Cases: Bilateral: Arthroscopy Knee, Tonsillectomy Other Surgeries: Yes: No Previous Surgery, Colonoscopy, Tubal Ligation, Ureter Stent. No: Pacemaker Amputation: No Fractures: Yes - *Social History Smoking Status: Never smoker Tobacco Type: cigarettes # Packs/Day (cigarettes): 1 #Yrs smoked (if former smoker): 30 Alcohol Intake: never Alcohol Intake Frequency:: holidays/special occasions only Substance Use Type: denies use *Occupational Status:: retired Housing: house Household Members: other *Travel in the last 8 weeks: None - Psychiatric History Pschychiatric History:: Reports:: Depression Family Hx:: Unable to obtain Review of Systems - Review of Systems ROS General: no recent weight change, no fever, no sleep disturbances Respiratory: no cough, no shortness of air, no recurring pulmonary infections Cardiovascular/Peripheral Vascular: No chest pain, No palpitations, no edema, no shortness of breath. Gastrointestinal: no new onset incontinence, normal bowel movements reported Genitourinary: no new onset incontinence Musculoskeletal: SI joint pain Psychiatric: normal mood/ affect Neurological: [denies new onset weakness in extremities], [denies new onset balance issues] Meds Home Medications Medication Instructions Recorded Confirmed Type
== END ==
PROVIDERS: PCP Family Medicine; Visit Provider Clinical Nurse Specialist Family Health
DX: M47.896 Other spondylosis, lumbar region (principal); M54.16 Radiculopathy, lumbar region; M54.9 Dorsalgia, unspecified; M46.1 Sacroiliitis, not elsewhere classified
CPT/HCPCS: 99212; G0463

== ENCOUNTER → 2020-10-26 12:42 | Outpatient (CLI) | payer MEDICARE, BC, SELFPAY ==
--- NOTE | 2020-10-26 12:42 | MR_ITS ---
PROCEDURE: MR HEAD/BRAIN WO CON CLINICAL INDICATION: worsening dizziness with diplopia Dizziness x1yr and has gotten worse. COMPARISON: No exams were available for comparison TECHNIQUE: Routine multiplanar multi echo sequences are performed without gadolinium enhancement. FINDINGS: No midline shift, mass effect, intracranial hemorrhage, or hydrocephalus. No evidence of acute infarction. There are few nonspecific small T2 white matter hyperintensities. The cerebellopontine angle, cerebellum, and brainstem have an unremarkable appearance. There is some nonspecific T2 hyperintensity in the milagro and may be related to ischemic gliotic change from microvascular disease. The pituitary, optic chiasm, corpus callosum, and craniocervical junction have an unremarkable appearance. No mastoid effusion or sinus air-fluid level. IMPRESSION: 1. No acute intracranial findings. 2. Nonspecific T2 white matter hyperintensities in the periventricular region and milagro which may be related to ischemic gliotic foci from microvascular disease. Dictated by: Lupillo Nolasco MD 10/27/2020 16:25 Lupillo Nolasco MD in [place] 10/27/2020 16:25
--- NOTE | 2020-10-26 12:42 | MR_ITS ---
PROCEDURE: MR ANGIO HEAD WO CON CLINICAL INDICATION: vertigo with diplopia Dizziness x1yr but has gotten worse. No prior. COMPARISON: MR MR HEAD/BRAIN WO CON from 10/26/2020 TECHNIQUE: 3D ctxx-ox-exuopi images are obtained without contrast. FINDINGS: No aneurysm, AVM, or major intracranial occlusive process is evident. There is persistent origin of both posterior cerebral arteries as a normal variant. The vertebral basilar system has an otherwise unremarkable appearance. IMPRESSION: Negative MRA of the brain. Dictated by: Lupillo Nolasco MD 10/27/2020 16:30 Lupillo Nolasco MD in [place] 10/27/2020 16:30
--- NOTE | 2020-10-26 13:55 | ECG_ITS ---
APPROVED REPORT Exam: Resting ECG HR:62 bpm ECG Measurements Heart Rate 62 AXES TN 122 P 56 QRSd 84 QRS 86 QT 404 T 59 QTc 410 Conclusion Normal sinus rhythm Normal ECG Electronically signed by : Richard Denney, 10/26/2020 17:19:44
== END ==
PROVIDERS: PCP Nurse Practitioner; Visit Provider Specialist
DX: H53.2 Diplopia (principal); R42 Dizziness and giddiness
CPT/HCPCS: 70544; 70551; 93005

== ENCOUNTER → 2020-10-27 07:11 | Day surgery (SDC) | payer MEDICARE, BC, SELFPAY ==
[2020-10-27 07:45] VITALS: BP 112/83; PULSE 61; RESP 18; O2SAT 95
--- NOTE | 2020-10-27 10:40 | HMH.TILT ---
Findings:: PROCEDURE: Upright Tilt Table Test REQUESTING PROVIDER: Barby Jamil MD INDICATION: Approximate 9 month history of recurrent pre-syncopal episodes and dizziness. BETA BLOCKERS: No PRE-TEST VITAL SIGNS: HR 54 regular, BP 110/62, O2 sats 96% SUMMARY: Patient was connected to the heart,blood pressure and O2 sat monitors and placed in the upright position at 85 degrees for 30 minutes. She denied feeling dizzy, lightheaded or near-syncopal during the test. Her heart was stable and within normal range while upright but did slowly increase from a low of 73 bpm (first measurement after being placed upright) to a high of 94 bpm (last measurement before being returned to supine). Her rhythm was normal sinus throughout with an occasional premature atrial contraction. Her blood pressure was stable with minimal change with a low of 102/74 and high of 115/75 while upright. Her O2 sats were in the mid-90s throughout. COMPLICATIONS: None CONCLUSION: Unremarkable upright TTT
== END ==
PROVIDERS: PCP Nurse Practitioner; Visit Provider Specialist
DX: R42 Dizziness and giddiness (principal); H53.2 Diplopia
CPT/HCPCS: 93660

== ENCOUNTER 2020-11-13 11:45 | Day surgery (SDC) | payer MEDICARE, BC, SELFPAY ==
[2020-11-13 11:53] VITALS: BP 108/71; PULSE 74; RESP 18; TEMP 36.6; O2SAT 98; BMI 25.0
[2020-11-13 12:22] VITALS: BP 125/85; PULSE 85; RESP 18
[2020-11-13 12:23] VITALS: BP 128/89; PULSE 74; RESP 18; O2SAT 98
[2020-11-13 12:36] VITALS: BP 115/75; PULSE 63; RESP 18; O2SAT 98
--- NOTE | 2020-11-13 12:36 | HMH.PMPROC ---
- Procedure Date: 11/13/20 Time: 12:36 Anesthesiologist:: Markie Rodríguez MD Complications:: None Pre-procedure Diagnosis:: Sacroiliitis Post-procedure Diagnosis:: Same Indications for Procedure:: This patient is a pleasant 65-year-old white female who we are treating for left-sided hip pain. She is tender over her left SI joint. She does have a positive Mariama's test on the left side. She has positive Lazaro test on left side. She has positive SI joint compression test on left side. We will do a left SI joint injection under fluoroscopy today to help her with her pain symptoms. Procedure Details:: Left SI joint injection under fluoroscopy Informed consent was obtained and the risks and benefits of the procedure was explained to the patient. Patient was taken to the procedure room. Patient was placed prone on the procedure table. The left hip was prepped using ChloraPrep. The skin and subcutaneous tissues were anesthetized using lidocaine. I placed a 22-gauge spinal needle into the inferior aspect of the left SI joint. Needle placement was confirmed with dye. After this we injected 5 mL bupivacaine 0.25% and Depo-Medrol 40 mg into the left SI joint. The patient tolerated the procedure well with no complication. Plan and Disposition:: We will follow-up with her in 2 weeks. Will reevaluate symptoms at that time.
== END 2020-11-13 12:37 | disposition home or self-care (01) ==
LOC: SC.PAINP 11:47
PROVIDERS: PCP Family Medicine; Visit Provider Anesthesiology
DX: M46.1 Sacroiliitis, not elsewhere classified (principal); J44.9 Chronic obstructive pulmonary disease, unspecified; E78.5 Hyperlipidemia, unspecified; M19.90 Unspecified osteoarthritis, unspecified site; F32.9 Major depressive disorder, single episode, unspecified; Z88.0 Allergy status to penicillin; I10 Essential (primary) hypertension; K21.9 Gastro-esophageal reflux disease without esophagitis; G43.909 Migraine, unspecified, not intractable, without status migrainosus; Z79.899 Other long term (current) drug therapy
CPT/HCPCS: 27096; G0260; J1040; Q9966

== ENCOUNTER 2020-11-25 14:00 | Outpatient (RCR) | payer MEDICARE, BC, SELFPAY | END 2020-11-25 14:05 | disposition home or self-care (01) | LOC: PT 14:00 | PROVIDERS: PCP Family Medicine; Visit Provider Nurse Practitioner | DX: R42 Dizziness and giddiness (principal) | CPT/HCPCS: 97110; 97112; 97140; 97163; 97164; 97530 ==

== ENCOUNTER → 2020-12-10 11:02 | Outpatient (POV) | payer MEDICARE, BC, SELFPAY ==
[2020-12-10 11:45] VITALS: BP 115/74; PULSE 61; RESP 18; O2SAT 98; BMI 25.0
--- NOTE | 2020-12-10 12:56 | P.CONS_ITS ---
[facility] Pain Management SOAP Note Subjective:: Patient is a pleasant 65-year-old white female who presents today for follow-up. Patient had a left SI joint injection. Patient had extreme pain afterwards and had no relief of her symptomology. Her pain is a 1 out of 10 today however she states that she still has times that her pain to a 9 or 10 out of 10 and is unable to walk well. Mostly in her low back. We discussed that lumbar epidural steroid injection. She is agreeable. We will move forward with this. She is not on any anticoagulation therapy. She has had epidurals in the past however this was about 20 years ago. She says that they were successful for her. ROS General: no recent weight change, no fever, no sleep disturbances Respiratory: no cough, no shortness of air, no recurring pulmonary infections Cardiovascular/Peripheral Vascular: No chest pain, No palpitations, no edema, no shortness of breath. Gastrointestinal: no new onset incontinence, normal bowel movements reported Genitourinary: no new onset incontinence Musculoskeletal: Back pain Psychiatric: normal mood/ affect Neurological: [denies new onset weakness in extremities], [denies new onset balance issues] Objective:: Physical Exam General: Alert and oriented x3, no acute distress, pleasant and cooperative, [on room air] Lungs: Resps E/U, Symmetrical chest expansion, Eyes: PERRL Musculoskeletal: Flexion and extension of lumbar spine somewhat guarded secondary to pain, deep tendon reflexes normal, strength in upper and lower extremities [5/5], antalgic gait noted Neurological: speech clear, precision lens generator equal, no gross sensory deficits Assessment:: Degenerative disc disease lumbar spine lumbar radiculopathy, back pain Plan:: We will schedule the patient for an L4-L5 lumbar epidural steroid injection. Patient has had these in the past with good relief. Patient has failed 6 months of conservative therapy including medication management. I will follow-up with her afterwards reassess her symptoms at that time she has been instructed to call the office if she has any issues. Dr. Rodríguez has reviewed this note and agrees with this plan of care. This note was dictated using voice recognition software and may contain errors or omissions [facility] History I have reviewed the patient's past medical history: Yes Medical History: Reports:: Chronic Obstructive Pulmonary Disease (COPD), Depression, Hyperlipidemia, Hypertension, Kidney Stones Denies:: Cancer, Diabetes Mellitus Type 1, Diabetes Mellitus Type 2, Internal Pacemaker, MRSA, Seizures *Have you ever received a pneumonia vaccine?: Yes *Have you received a flu vaccine this season?: Yes Other Medical History: Reports: Arthritis, Cataracts. Denies: Blood Transfusion Reaction Laterality Cases: Bilateral: Arthroscopy Knee, Tonsillectomy Other Surgeries: Yes: No Previous Surgery, Colonoscopy, Tubal Ligation, Ureter Stent. No: Pacemaker Amputation: No Fractures: Yes - *Social History Smoking Status: Former smoker Tobacco Type: cigarettes # Packs/Day (cigarettes): 1 #Yrs smoked (if former smoker): 30 Alcohol Intake: never Alcohol Intake Frequency:: holidays/special occasions only Substance Use Type: denies use *Occupational Status:: other Housing: house Household Members: friend(s) *Travel in the last 8 weeks: None - Psychiatric History Pschychiatric History:: Reports:: Depression Family Hx:: No significant family history
== END ==
PROVIDERS: PCP Family Medicine; Visit Provider Clinical Nurse Specialist Family Health
DX: M51.16 Intervertebral disc disorders with radiculopathy, lumbar region (principal)
CPT/HCPCS: 99212; G0463

== ENCOUNTER 2021-01-01 12:24 | Day surgery (SDC) | payer MEDICARE, BC, SELFPAY ==
[2021-01-01 13:44] VITALS: BP 118/62; PULSE 63; RESP 18; TEMP 36.6; O2SAT 97; BMI 25.0
[2021-01-01 14:58] VITALS: BP 124/62; PULSE 59; RESP 18; O2SAT 99
[2021-01-01 15:00] VITALS: BP 124/62; PULSE 63; RESP 18; O2SAT 100
[2021-01-01 15:12] VITALS: BP 137/83; PULSE 102; RESP 209; O2SAT 97
--- NOTE | 2021-01-01 16:06 | P.PCN_ITS ---
- Procedure Date: 01/01/21 Time: 16:06 Anesthesiologist:: Sandra Gutierrez MD Complications:: None Pre-procedure Diagnosis:: Disc disease of lumbar spine, lumbar radiculopathy, low back pain Post-procedure Diagnosis:: Same Indications for Procedure:: Patient is a very pleasant 65-year-old white female who presents today for low back pain with radiculopathy symptoms. She she reports that the pain is mainly in her low back and into her buttock area. She has previously undergone a left- sided SI joint injection however she had extreme pain afterwards and denies any relief in her pain symptoms. She reports the back pain is so severe that it causes her to have difficulty walking. She is not on any anticoagulation therapy. She notes having epidurals in the past which were successful in alleviating her low back pain; however she reports it has been years since she has undergone this injection. Exam reveals flexion and extension of the lumbar spine is somewhat guarded secondary to pain, motor strength is grossly intact in upper and lower extremities, antalgic gait is noted. Plan for today is lumbar epidural steroid injection. Procedure Details:: Informed consent was obtained and the risk and benefits of the procedure was explained to the patient. The patient was taken to the procedure room. The patient was placed prone on the procedure table. The patient was prepped and draped in sterile fashion. C-arm fluoroscopy was used to view the lumbar spine. Skin and subcutaneous tissues were anesthetized using lidocaine. I placed an 18-gauge epidural needle and advanced into the L5-S1 interspace using fluoroscopic guidance and [id number] to air. After confirmation of needle placement in the epidural space with dye I injected 2 mL of lidocaine 1.5% with Depo-Medrol 80 mg. Patient tolerated the procedure well with no complications. Plan and Disposition:: Follow-up in 2 weeks. Will reevaluate symptoms at that time
== END 2021-01-01 15:13 | disposition home or self-care (01) ==
LOC: SC.PAINP 12:26
PROVIDERS: PCP Family Medicine; Visit Provider Anesthesiology Pain Medicine
DX: M51.16 Intervertebral disc disorders with radiculopathy, lumbar region (principal); I10 Essential (primary) hypertension; E78.5 Hyperlipidemia, unspecified; J44.9 Chronic obstructive pulmonary disease, unspecified; M19.90 Unspecified osteoarthritis, unspecified site; F32.9 Major depressive disorder, single episode, unspecified; Z87.891 Personal history of nicotine dependence
CPT/HCPCS: 62323; J1040; Q9966

== ENCOUNTER → 2021-01-25 11:30 | Outpatient (POV) | payer MEDICARE, BC, SELFPAY ==
[2021-01-25 11:36] VITALS: BP 135/80; PULSE 81; RESP 16; O2SAT 94; BMI 25.0
--- NOTE | 2021-01-25 12:33 | HMH.PAINSOAP ---
[facility] Pain Management SOAP Note Subjective:: Patient is a 65-year-old white female who presents today for follow-up after a lumbar epidural steroid injection. She has been treated for degenerative disc disease lumbar spine with lumbar radiculopathy symptoms and low back pain. Patient was having pain mainly in her low back and into her buttock. She has undergone left-sided SI injections however she had extreme pain afterwards and denies any relief of her symptoms. The pain is to the point that it is causing her to have difficulty with ambulation. She says since her last lumbar epidural steroid injection, she got significant relief. The sharp pain is now gone, however, she is continued to have a dull constant ache. She says her pain does worsen when she is sitting. She no longer has loss of balance since her lumbar epidural steroid injection, however. Her last injection was at L5-S1. She says that she got about 70% relief and is continuing to get relief with the sharp pain, however, her pain is now constant and dull in nature. She would like to undergo a repeat injection to the area. She is not on anticoagulation therapy. She has tried and failed conservative therapies of physical therapy for greater than 6 weeks and continued home stretching and anti-inflammatories. Review of Systems General: No recent weight changes, no fever, no sleep disturbances Respiratory: No cough, no shortness of air, no recurring pulmonary infections Cardiovascular/peripheral vascular: No chest pain, no palpitations, no edema, no shortness of breath Gastrointestinal: No new onset incontinence, normal bowel movements reported Genitourinary: No new onset incontinence Musculoskeletal: Low back pain radiating into bilateral buttock Psychiatric: Normal mood/affect Neurological: [Denies weakness in extremities], [denies balance issues] Objective:: Physical exam General: Alert and oriented x3, no acute distress, pleasant and cooperative, [on room air] Lungs: Respirations even and unlabored, symmetrical chest expansion Eyes: PERRL Musculoskeletal: Flexion and extension of [] lumbar spine somewhat guarded secondary to pain, deep tendon reflexes normal, strength in upper and lower extremities [5/5], [abnormal gait noted] Neurological: Speech clear, cattle brander equal, no gross sensory deficit Assessment:: Degenerative disc disease lumbar spine with lumbar radiculopathy symptoms, low back pain Plan:: We will schedule patient for repeat epidural L5-S1. She is not on any anticoagulation therapy. We will see her back after her second lumbar epidural steroid injection to reevaluate her symptoms. She did get great relief with the last injection. The patient's sharp pain has been relieved since the injection. She now has a dull constant ache. We will see her back after her injection for reevaluation of her symptoms. Risks and benefits of the procedure have been explained to the patient. Patient would like to proceed with the procedure. Possible side effects of corticosteroids have been discussed with the patient. Patient has been instructed to contact the clinic with any concerns before the next appointment. Dr. Rodríguez has reviewed this note and agrees with this plan of care. This note was dictated using voice recognition software and make contain errors or omissions. [facility] History I have reviewed the patient's past medical history: Yes Medical History: Reports:: Chronic Obstructive Pulmonary Disease (COPD), Depression, Hyperlipidemia, Hypertension, Kidney Stones Denies:: Cancer, Diabetes Mellitus Type 1, Diabetes Mellitus Type 2, Internal Pacemaker, MRSA, Seizures *Have you ever received a pneumonia vaccine?: Yes *Have you received a flu vaccine this season?: Yes Other Medical History: Reports: Arthritis, Cataracts. Denies: Blood Transfusion Reaction Laterality Cases: Bilateral: Arthroscopy Knee, Tonsillectomy Other Surgeries: Yes: No Previous Surgery, [place]
== END ==
PROVIDERS: PCP Family Medicine; Visit Provider Clinical Nurse Specialist Family Health
DX: M51.16 Intervertebral disc disorders with radiculopathy, lumbar region (principal)
CPT/HCPCS: 99212; G0463

== ENCOUNTER 2021-02-05 12:57 | Day surgery (SDC) | payer MEDICARE, BC, SELFPAY ==
[2021-02-05 13:01] VITALS: BP 127/69; PULSE 66; RESP 18; TEMP 36.6; O2SAT 98; BMI 25.0
[2021-02-05 13:26] VITALS: BP 110/65; PULSE 60; RESP 18; O2SAT 97
[2021-02-05 13:28] VITALS: BP 101/63; PULSE 59; RESP 18; O2SAT 97
[2021-02-05 13:43] VITALS: BP 112/64; PULSE 60; RESP 20; O2SAT 96
--- NOTE | 2021-02-05 14:38 | HMH.PMPROC ---
- Procedure Date: 02/05/21 Time: 14:38 Anesthesiologist:: Sandra Gutierrez MD Complications:: None Pre-procedure Diagnosis:: Degenerative disc disease of the lumbar spine, lumbar radiculopathy Post-procedure Diagnosis:: Same Indications for Procedure:: This patient is a very pleasant 65-year-old white female who presents today with chronic back pain radiating into her buttock related to the above diagnosis. She previously has undergone a lumbar epidural steroid injection and has noted significant pain relief and states that it has significantly improved the severity of her pain. She states that she still has a slight dull constant ache in her back that is worse with sitting. She notes about 70% pain relief with the last injection and would like to undergo repeat injection for more pain relief. She has tried and failed conservative treatment including oral pain medication as well as home stretching program for greater than 6 weeks. The plan for today is for the patient to undergo repeat lumbar epidural steroid injection at L5-S1 #2 today. Procedure Details:: Informed consent was obtained and the risk and benefits of the procedure was explained to the patient. The patient was taken to the procedure room. The patient was placed prone on the procedure table. The patient was prepped and draped in sterile fashion. C-arm fluoroscopy was used to view the lumbar spine. Skin and subcutaneous tissues were anesthetized using lidocaine. I placed an 18-gauge epidural needle and advanced into the L5-S1 interspace using fluoroscopic guidance and [id number] to air and saline. After confirmation of needle placement in the epidural space with dye I injected 2 mL of lidocaine 1.0% with Depo-Medrol 80 mg. Patient tolerated the procedure well with no complications. Plan and Disposition:: Follow-up with this patient in 2 weeks. Will reevaluate pain symptoms at that time.
== END 2021-02-05 13:45 | disposition home or self-care (01) ==
PROVIDERS: PCP Family Medicine; Visit Provider Anesthesiology Pain Medicine
DX: M51.16 Intervertebral disc disorders with radiculopathy, lumbar region (principal); E78.5 Hyperlipidemia, unspecified; I10 Essential (primary) hypertension; J44.9 Chronic obstructive pulmonary disease, unspecified; M19.90 Unspecified osteoarthritis, unspecified site; F32.9 Major depressive disorder, single episode, unspecified; Z87.891 Personal history of nicotine dependence
CPT/HCPCS: 62323; J1040; Q9966

== ENCOUNTER → 2021-03-04 13:42 | Outpatient (POV) | payer MEDICARE, BC, SELFPAY ==
--- NOTE | 2021-03-04 13:53 | HMH.PAINSOAP ---
[facility] Pain Management SOAP Note Subjective:: Patient is a 65-year-old white female who presents today for follow-up after lumbar epidural steroid injection at L5-S1. She is being treated for degenerative disc disease lumbar spine with lumbar radiculopathy symptoms. She reports that she got up to 70% relief with her last injection. She does continue to have some pain, however, the sharp pains that she previously had have now decreased to dull ache. She says that she is continue with home stretching and has tried physical therapy for greater than 6 weeks. She is also tried anti-inflammatories. Patient would like to do the full series of the injections, number 3 injection. She is in hopes that this will give her longer lasting relief along with decrease in the dull ache that she now has in her low back. Her pain is in her low back radiating into her buttock. She says it also radiates into her bilateral lower extremities. Pain is worse with sitting. She says taking 2 Aleve throughout the day gave her significant relief. Review of Systems General: No recent weight changes, no fever, no sleep disturbances Respiratory: No cough, no shortness of air, no recurring pulmonary infections Cardiovascular/peripheral vascular: No chest pain, no palpitations, [no edema], no shortness of breath Gastrointestinal: No new onset incontinence, normal bowel movements reported Genitourinary: No new onset incontinence Musculoskeletal: [] Low back pain with radiation into buttock and legs Psychiatric: [Normal mood/affect] Neurological: [Denies weakness in extremities], [denies balance issues] Objective:: Physical exam General: Alert and oriented x3, no acute distress, pleasant and cooperative, [on room air] Lungs: Respirations even and unlabored, symmetrical chest expansion Eyes: PERRL Musculoskeletal: Flexion and extension of [] lumbar [spine] somewhat guarded secondary to pain, strength in upper and lower extremities [5/5], [antalgic gait noted] Neurological: Speech clear, [drying machine back tender equal], no gross sensory deficit Assessment:: Degenerative disc disease lumbar spine with lumbar radiculopathy symptoms Plan:: We will schedule the patient for repeat #3 lumbar epidural steroid injection at L5-S1. We will see the patient back in the clinic afterwards to reevaluate her symptoms. She has tried failed conservative therapies of physical therapy for greater than 6 weeks along with continued home stretching. She also continues with ice and heat therapies and relief. She is not on any anticoagulation therapy. Risks and benefits of the procedure have been explained to the patient. Patient would like to proceed with the procedure. Possible side effects of corticosteroids have been discussed with the patient. Patient has been instructed to contact the clinic with any concerns before the next appointment. Dr. Rodríguez has reviewed this note and agrees with this plan of care. This note was dictated using voice recognition software and make contain errors or omissions. [facility] History I have reviewed the patient's past medical history: Yes Medical History: Reports:: Chronic Obstructive Pulmonary Disease (COPD), Depression, Hyperlipidemia, Hypertension, Kidney Stones Denies:: Cancer, Diabetes Mellitus Type 1, Diabetes Mellitus Type 2, Internal Pacemaker, MRSA, Seizures *Have you ever received a pneumonia vaccine?: No *Have you received a flu vaccine this season?: No Other Medical History: Reports: Arthritis, Cataracts. Denies: Blood Transfusion Reaction Laterality Cases: Bilateral: Arthroscopy Knee, Tonsillectomy Other Surgeries: Yes: No Previous Surgery, Colonoscopy, Tubal Ligation, Ureter Stent. No: Pacemaker Amputation: No Fractures: Yes - *Social History Smoking Status: Current every day smoker Tobacco Type: cigarettes # Packs/Day (cigarettes): 1 #Yrs smoked (if former smoker): 30 Alcohol Intake: never Alcohol Intake Frequency:: holidays/special occasion
[2021-03-04 14:06] VITALS: BP 116/72; PULSE 67; RESP 18; O2SAT 97; BMI 25.8
== END ==
PROVIDERS: PCP Family Medicine; Visit Provider Clinical Nurse Specialist Family Health
DX: M51.16 Intervertebral disc disorders with radiculopathy, lumbar region (principal)
CPT/HCPCS: 99212; G0463

== ENCOUNTER 2021-03-19 14:03 | Day surgery (SDC) | payer MEDICARE, BC, SELFPAY ==
[2021-03-19 14:08] VITALS: BP 118/72; PULSE 71; RESP 18; TEMP 36.7; O2SAT 98; BMI 25.8
[2021-03-19 14:52] VITALS: BP 112/64; PULSE 55; RESP 18; O2SAT 99
[2021-03-19 14:53] VITALS: BP 112/64; PULSE 57; RESP 18; O2SAT 99
--- NOTE | 2021-03-19 14:56 | HMH.PMPROC ---
- Procedure Date: 03/19/21 Time: 14:56 Anesthesiologist:: Markie Rodríguez MD Complications:: None Pre-procedure Diagnosis:: Degenerative disc disease of lumbar spine with lumbar radiculopathy symptoms Post-procedure Diagnosis:: Same Indications for Procedure:: Patient is a pleasant 65-year-old white female who we have been treating for low back pain with lumbar radiculopathy symptoms. She has done very well with previous epidural steroid injections. Most of her pain is in the low and mid back rating to the left hip. We will do repeat lumbar epidural steroid injection today to see if this helps with her pain symptoms. Procedure Details:: Informed consent was obtained and the risk and benefits of the procedure was explained to the patient. The patient was taken to the procedure room. The patient was placed prone on the procedure table. The patient was prepped and draped in sterile fashion. C-arm fluoroscopy was used to view the lumbar spine. Skin and subcutaneous tissues were anesthetized using lidocaine. I placed an 18-gauge epidural needle and advanced into the L4-L5 interspace using fluoroscopic guidance and [id number] to air. After confirmation of needle placement in the epidural space with dye I injected 2 mL of lidocaine 1.5% with Depo-Medrol 80 mg. Patient tolerated the procedure well with no complications. Plan and Disposition:: We will follow-up with her in 2 weeks. Will reevaluate symptoms at that time.
[2021-03-19 15:05] VITALS: BP 126/70; PULSE 64; RESP 18; O2SAT 98
== END 2021-03-19 15:05 | disposition home or self-care (01) ==
LOC: SC.PAINP 14:05
PROVIDERS: PCP Family Medicine; Visit Provider Anesthesiology
DX: M51.16 Intervertebral disc disorders with radiculopathy, lumbar region (principal); E78.5 Hyperlipidemia, unspecified; I10 Essential (primary) hypertension; J44.9 Chronic obstructive pulmonary disease, unspecified; M19.90 Unspecified osteoarthritis, unspecified site; F32.9 Major depressive disorder, single episode, unspecified; F41.9 Anxiety disorder, unspecified; Z88.0 Allergy status to penicillin
CPT/HCPCS: 62323; J1040; Q9966

== ENCOUNTER → 2021-04-06 15:05 | Outpatient (CLI) | payer MEDICARE, BC, SELFPAY ==
--- NOTE | 2021-04-06 15:07 | MM_ITS ---
PROCEDURE: MM DIG SCREENING MAMM BI W/CAD Digital Breast Tomosynthesis Included CLINICAL INDICATION: SCREENING COMPARISON: [facility] MM Dig screening mamm BI w/CAD from 10/24/2017 [facility] MM Dig screening mamm BI w/CAD from 10/30/2018 [facility] MM DIG SCREENING MAMM BI W/CAD from 02/24/2020 TECHNIQUE: Standard CC and MLO images and 3D Tomosynthesis was obtained. R2 CAD reviewed. FINDINGS: The breasts are heterogeneously dense which may obscure small masses. No suspicious appearing mass, malignant-appearing microcalcification, architectural distortion, or skin thickening. No significant change IMPRESSION: BI-RAD Category: 1 Negative FOLLOW-UP: 1 YR 1 Year Follow-up (A letter has been sent to the patient regarding results of the study.) Dictated by: Lupillo Nolasco MD 04/14/2021 15:24 Lupillo Nolasco MD in OV 04/14/2021 15:24
== END ==
PROVIDERS: PCP Family Medicine; Visit Provider Family Medicine
DX: Z12.31 Encounter for screening mammogram for malignant neoplasm of breast (principal)
CPT/HCPCS: 77063; 77067

== ENCOUNTER → 2021-05-10 15:00 | Outpatient (POV) | payer MEDICARE, BC, SELFPAY ==
[2021-05-10 15:18] VITALS: BP 103/68; PULSE 71; RESP 18; O2SAT 97; BMI 25.0
--- NOTE | 2021-05-10 16:23 | HMH.PAINSOAP ---
[facility] Pain Management SOAP Note Subjective:: Patient is a 65-year-old white female who presents today for follow-up after lumbar epidural steroid injection at L4-L5 area. She did not undergo the injection on 03/19/2021. She reports that she got significant relief. The patient's pain is a 5 out of 10 at this time. She does say prior to the injection, she had pain that was constant in nature. The pain was in the low back area with radiation into the left buttock, left hip. The pain is now intermittent and is present approximately 3-4 times per week. She says when the pain does present, the pain is at a 9 out of 10. The patient would like to undergo a repeat injection. She has had 3 lumbar epidural steroid injections as well as an SI injection. The SI injection did not give the patient any significant relief. She has tried and failed ice and heat therapies as well as home stretching for greater than 6 weeks along with previous physical therapy for greater than 6 weeks. Review of Systems General: No recent weight changes, no fever, no sleep disturbances Respiratory: No cough, no shortness of air, no recurring pulmonary infections Cardiovascular/peripheral vascular: No chest pain, no palpitations, no edema, no shortness of breath Gastrointestinal: No new onset incontinence, normal bowel movements reported Genitourinary: No new onset incontinence Musculoskeletal: Low back pain with radiation into left hip and left buttock Psychiatric: [Normal mood/affect] Neurological: [Denies weakness in extremities], [denies balance issues] Objective:: Physical exam General: Alert and oriented x3, no acute distress, pleasant and cooperative, [on room air] Lungs: Respirations even and unlabored, symmetrical chest expansion Eyes: PERRL Musculoskeletal: Flexion and extension of lumbar [spine] somewhat guarded secondary to pain [antalgic gait noted] Neurological: Speech clear, [mid level java developer equal], no gross sensory deficit Assessment:: Degenerative disc disease lumbar spine with lumbar radiculopathy symptoms Plan:: We will schedule the patient for a lumbar epidural steroid injection #4 at the L4-L5 area. The patient does get significant relief up to 80% relief for 2 to 3 weeks. She is not on any anticoagulation therapy. We will see the patient back after the injection for reevaluation of symptoms. Possible side effects of corticosteroids have been discussed with the patient. Risks and benefits of the procedure have been explained to the patient. Patient would like to proceed with the procedure. Patient has been instructed to contact the clinic with any concerns before the next appointment. Dr. Rodríguez has reviewed this note and agrees with this plan of care. This note was dictated using voice recognition software and make contain errors or omissions. [facility] History I have reviewed the patient's past medical history: Yes Medical History: Reports:: Chronic Obstructive Pulmonary Disease (COPD), Depression, Hyperlipidemia, Hypertension, Kidney Stones Denies:: Cancer, Diabetes Mellitus Type 1, Diabetes Mellitus Type 2, Internal Pacemaker, MRSA, Seizures *Have you ever received a pneumonia vaccine?: Yes *Have you received a flu vaccine this season?: Yes Other Medical History: Reports: Arthritis, Cataracts. Denies: Blood Transfusion Reaction Laterality Cases: Bilateral: Arthroscopy Knee, Tonsillectomy Other Surgeries: Yes: No Previous Surgery, Colonoscopy, Tubal Ligation, Ureter Stent. No: Pacemaker Amputation: No Fractures: Yes - *Social History Smoking Status: Current every day smoker Tobacco Type: cigarettes # Packs/Day (cigarettes): 1 #Yrs smoked (if former smoker): 30 Alcohol Intake: never Alcohol Intake Frequency:: holidays/special occasions only Substance Use Type: denies use *Occupational Status:: retired Housing: house Household Members: friend(s) *Travel in the last 8 weeks: None - Psychiatric History Pschychiatric History:: Reports
== END ==
PROVIDERS: PCP Family Medicine; Visit Provider Clinical Nurse Specialist Family Health
DX: M51.16 Intervertebral disc disorders with radiculopathy, lumbar region (principal)
CPT/HCPCS: 99212; G0463

== ENCOUNTER 2021-05-28 11:03 | Day surgery (SDC) | payer MEDICARE, BC, SELFPAY ==
[2021-05-28 11:20] VITALS: BP 109/73; PULSE 80; RESP 18; TEMP 36.7; O2SAT 97; BMI 25.0
[2021-05-28 11:23] VITALS: BP 111/68; PULSE 65; RESP 20; O2SAT 98
[2021-05-28 11:29] VITALS: BP 112/56; PULSE 63; RESP 20; O2SAT 99
--- NOTE | 2021-05-28 11:41 | HMH.PMPROC ---
- Procedure Date: 05/28/21 Time: 11:41 Anesthesiologist:: Markie Rodríguez MD Complications:: None Pre-procedure Diagnosis:: Degenerative disc disease of lumbar spine with lumbar radiculopathy symptoms Post-procedure Diagnosis:: Same Indications for Procedure:: Patient is a pleasant 65-year-old white female who we are treating for low back pain with lumbar radiculopathy symptoms. She has done well with previous epidural steroid injections. She did not get any benefit from the SI joint injection. She presents for repeat lumbar epidural steroid injection under fluoroscopy today. Most of her pain is over the left hip and buttock area. Procedure Details:: Informed consent was obtained and the risk and benefits of the procedure was explained to the patient. The patient was taken to the procedure room. The patient was placed prone on the procedure table. The patient was prepped and draped in sterile fashion. C-arm fluoroscopy was used to view the lumbar spine. Skin and subcutaneous tissues were anesthetized using lidocaine. I placed an 18-gauge epidural needle and advanced into the L4-L5 interspace using fluoroscopic guidance and [id number] to air. After confirmation of needle placement in the epidural space with dye I injected 2 mL of lidocaine 1.5% with Depo-Medrol 80 mg. Patient tolerated the procedure well with no complications. Plan and Disposition:: We will follow-up with her in 2 weeks. Will reevaluate symptoms at that time.
[2021-05-28 11:45] VITALS: BP 131/73; PULSE 71; RESP 18; O2SAT 98
== END 2021-05-28 11:45 | disposition home or self-care (01) ==
LOC: SC.PAINP 11:04
PROVIDERS: PCP Family Medicine; Visit Provider Anesthesiology
DX: M51.16 Intervertebral disc disorders with radiculopathy, lumbar region (principal); E78.5 Hyperlipidemia, unspecified; I10 Essential (primary) hypertension; J44.9 Chronic obstructive pulmonary disease, unspecified; F32.9 Major depressive disorder, single episode, unspecified; F41.9 Anxiety disorder, unspecified; Z87.442 Personal history of urinary calculi; Z72.0 Tobacco use; Z88.0 Allergy status to penicillin
CPT/HCPCS: 62323; J1040; Q9966

== ENCOUNTER → 2021-06-15 10:12 | Outpatient (POV) | payer MEDICARE, BC, SELFPAY ==
[2021-06-15 11:15] VITALS: BP 119/77; PULSE 69; RESP 18; O2SAT 97; BMI 25.0
--- NOTE | 2021-06-15 12:10 | P.CONS_ITS ---
[facility] Pain Management SOAP Note Subjective:: Patient is a 66-year-old white female who presents today for follow-up after lumbar epidural steroid injection. The patient was initially treated for SI pain but did not get any significant relief with that injection. She reports she got excellent relief with her lumbar epidural steroid injection. She got approximately 95% relief. She rates her pain a 1 out of 10 today. She says that much of her pain has subsided. She does have some soreness that worsens after extensive movement. Otherwise, she is doing well since the injection. This was the patient's initial lumbar epidural steroid injection. Review of Systems General: No recent weight changes, no fever, no sleep disturbances Respiratory: No cough, no shortness of air, no recurring pulmonary infections Cardiovascular/peripheral vascular: No chest pain, no palpitations, no edema, no shortness of breath Gastrointestinal: No new onset incontinence, normal bowel movements reported Genitourinary: No new onset incontinence Musculoskeletal: [] Soreness to left low back area Psychiatric: [Normal mood/affect] Neurological: [Denies weakness in extremities], [denies balance issues] Objective:: Physical exam General: Alert and oriented x3, no acute distress, pleasant and cooperative Lungs: Respirations even and unlabored, symmetrical chest expansion Eyes: PERRL Musculoskeletal: Flexion and extension of lumbar [spine] somewhat guarded secondary to pain, [antalgic gait noted] Neurological: Speech clear, no gross sensory deficit Assessment:: Degenerative disc disease lumbar spine with lumbar radiculopathy symptoms Plan:: Patient did excellent with the injection. We will plan to follow-up with her in 3 months for reevaluation of symptoms. Patient has been instructed to contact the clinic with any concerns before the next appointment. Dr. Rodríguez has reviewed this note and agrees with this plan of care. This note was dictated using voice recognition software and make contain errors or omissions. [facility] History I have reviewed the patient's past medical history: Yes Medical History: Reports:: Chronic Obstructive Pulmonary Disease (COPD), Depression, Hyperlipidemia, Hypertension, Kidney Stones Denies:: Cancer, Diabetes Mellitus Type 1, Diabetes Mellitus Type 2, Internal Pacemaker, MRSA, Seizures *Have you ever received a pneumonia vaccine?: Yes *Have you received a flu vaccine this season?: Yes Other Medical History: Reports: Arthritis, Cataracts. Denies: Blood Transfusion Reaction Laterality Cases: Bilateral: Arthroscopy Knee, Tonsillectomy Other Surgeries: Yes: No Previous Surgery, Colonoscopy, Tubal Ligation, Ureter Stent, Other (oral sx). No: Pacemaker Amputation: No Fractures: Yes - *Social History Smoking Status: Current every day smoker Tobacco Type: cigarettes # Packs/Day (cigarettes): 1 #Yrs smoked (if former smoker): 30 Alcohol Intake: never Alcohol Intake Frequency:: holidays/special occasions only Substance Use Type: denies use *Occupational Status:: unemployed Housing: house Household Members: friend(s) *Travel in the last 8 weeks: None - Psychiatric History Pschychiatric History:: Reports:: Depression Family Hx:: No significant family history
== END ==
PROVIDERS: Visit Provider Clinical Nurse Specialist Family Health
DX: M51.16 Intervertebral disc disorders with radiculopathy, lumbar region (principal)
CPT/HCPCS: 99212; G0463

== ENCOUNTER → 2021-09-06 14:17 | Outpatient (CLI) | payer MEDICARE, BC, SELFPAY ==
[2021-09-06 15:16] LABS: Basophils # 0.1 K/mm3 (0-0.2); Basophils % 0.8 % (0.1-2.0); Eosinophils # 0.3 K/mm3 (0.0-0.4); Eosinophils % 2.6 % (0.1-12.0); Hematocrit 46.4 % (37.0-47.0); Hemoglobin 14.8 g/dL (12.2-16.2); Lymphocytes # 2.1 K/mm3 (0.7-4.5); Lymphocytes % 18.4 % (10-50); Mean Corpuscular HGB Conc 31.9 g/dL (31.8-35.4); Mean Corpuscular Volume 94.1 fl (81-99); Mean Platelet Volume 8.5 fl (7.4-10.4); Monocytes # 0.7 K/mm3 (0.1-1.0); Monocytes % 6.5 % (1.7-9.3); Neutrophils # 8.2 K/mm3 (1.8-7.8); Neutrophils % 71.7 % (37.0-80.0); Platelet Count 435 K/mm3 (142-424); Red Blood Count 4.94 M/mm3 (4.20-5.40); Red Cell Distribution Width 13.7 % (11.5-17.5); White Blood Count 11.4 K/mm3 (4.8-10.8)
[2021-09-06 16:31] LABS: Chloride 105 mmol/L (98-107); Potassium 5.1 mmoL/L (3.5-5.1); Sodium 139 mmol/L (136-145)
[2021-09-06 16:33] LABS: Alanine Aminotransferase 30 U/L (12-78); Alkaline Phosphatase 79 U/L (38-126); Aspartate Amino Transferase 41 U/L (14-36); Bilirubin,Total 0.5 mg/dl (0.2-1.3); Blood Urea Nitrogen 13 mg/dl (7-17); Estimated Glomerular Filt Rate 62 ml/min (>60); GFR (African American) 76 ML/MIN (>60)
[2021-09-06 16:34] LABS: Albumin Level 4.5 g/dl (3.5-5.0); Albumin/Globulin Ratio 1.6 (1.1-1.8); Anion Gap 10.1 mEq/L (5-15); Calcium 9.4 mg/dl (8.4-10.2); Carbon Dioxide 29 mmol/L (22.0-30.0); Chol/HDL Ratio 4.6 (1-3.5); Cholesterol 213 mg/dl (140-200); Globulin 2.9 g/dL (1.3-3.2); Glucose 91 mg/dl (74-100); HDL Cholesterol 46 mg/dl (40-60); Total Protein,Serum 7.4 g/dl (6.3-8.2); Triglycerides 202 mg/dl (30-150); VLDL Cholesterol 40 mg/dL (0-40)
[2021-09-06 16:45] LABS: Direct LDL Cholesterol 130.01 mg/dL (100-129)
[2021-09-06 17:04] LABS: Thyroid Stimulating Hormone 1.07 uIU/mL (0.465-4.68)
[2021-09-06 17:23] LABS: Troponin I < 0.01 ng/ml (0.00-0.034)
[2021-09-06 18:19] LABS: Hemoglobin A1C 5.9 % (4.0-6.0)
== END ==
PROVIDERS: PCP Family Medicine; Visit Provider Nurse Practitioner Family
DX: I10 Essential (primary) hypertension (principal); E78.5 Hyperlipidemia, unspecified; J44.9 Chronic obstructive pulmonary disease, unspecified; Z79.899 Other long term (current) drug therapy
CPT/HCPCS: 36415; 80053; 80061; 83036; 84443; 84484; 85025

== ENCOUNTER → 2021-09-16 13:53 | Outpatient (POV) | payer MEDICARE, BC, SELFPAY ==
[2021-09-16 14:24] VITALS: BP 133/83; PULSE 89; RESP 18; O2SAT 98; BMI 25.0
--- NOTE | 2021-09-20 15:37 | HMH.PAINSOAP ---
[facility] Pain Management SOAP Note Subjective:: Patient is a 66-year-old white female who presents today for follow-up. She did have a lumbar epidural steroid injection?fourth injection for which she got significant relief. She says that she got up to 95% relief with this injection. She has no pain today. Overall, she is doing well. Review of Systems General: No recent weight changes, no fever, no sleep disturbances Respiratory: No cough, no shortness of air, no recurring pulmonary infections Cardiovascular/peripheral vascular: No chest pain, no palpitations, no edema, no shortness of breath Gastrointestinal: No new onset incontinence, normal bowel movements reported Genitourinary: No new onset incontinence Musculoskeletal: No pain at this time Psychiatric: [Normal mood/affect] Neurological: [Denies weakness in extremities], [denies balance issues] Objective:: Physical exam General: Alert and oriented x3, no acute distress, pleasant and cooperative Lungs: Respirations even and unlabored, symmetrical chest expansion Eyes: PERRL Musculoskeletal: Flexion and extension of [] [spine] non guarded Neurological: Speech clear, no gross sensory deficit Assessment:: Degenerative disc disease lumbar spine with lumbar radiculopathy symptoms Plan:: The patient is doing well since her injections. We will plan to follow-up with her in the clinic in 3 months. She can contact clinic if her pain returns before then. Patient has been instructed to contact the clinic with any concerns before the next appointment. Dr. Rodríguez has reviewed this note and agrees with this plan of care. This note was dictated using voice recognition software and make contain errors or omissions. [facility] History I have reviewed the patient's past medical history: Yes Medical History: Reports:: Chronic Obstructive Pulmonary Disease (COPD), Depression, Hyperlipidemia, Hypertension, Kidney Stones Denies:: Cancer, Diabetes Mellitus Type 1, Diabetes Mellitus Type 2, Internal Pacemaker, MRSA, Seizures *Have you ever received a pneumonia vaccine?: Yes *Have you received a flu vaccine this season?: Yes Other Medical History: Reports: Arthritis, Cataracts. Denies: Blood Transfusion Reaction Laterality Cases: Bilateral: Arthroscopy Knee, Tonsillectomy Other Surgeries: Yes: No Previous Surgery, Colonoscopy, Tubal Ligation, Ureter Stent, Other (oral sx). No: Pacemaker Amputation: No Fractures: Yes - *Social History Smoking Status: Current every day smoker Tobacco Type: cigarettes # Packs/Day (cigarettes): 1 #Yrs smoked (if former smoker): 30 Alcohol Intake: never Alcohol Intake Frequency:: holidays/special occasions only Substance Use Type: denies use *Occupational Status:: unemployed Housing: house Household Members: friend(s) *Travel in the last 8 weeks: None - Psychiatric History Pschychiatric History:: Reports:: Depression Family Hx:: No significant family history
== END ==
PROVIDERS: Visit Provider Clinical Nurse Specialist Family Health
DX: M51.16 Intervertebral disc disorders with radiculopathy, lumbar region (principal)
CPT/HCPCS: 99212; G0463

== ENCOUNTER → 2021-12-09 13:06 | Outpatient (CLI) | payer MEDICARE, BC, SELFPAY ==
--- NOTE | 2021-12-09 13:10 | MR_ITS ---
FINAL REPORT CLINICAL HISTORY: ACUTE PAIN OF RT KNEE acute pain of right knee twisted right knee x 2 weeks ago pain inferior to patella hx of knee surgery for torn meniscus in 2008 FINDINGS: Multiplanar MR imaging of the right knee was performed without contrast. The posterior horn of the medial meniscus has an abnormal appearance. It is uncertain if this represents postoperative change or a tear. There is lateral meniscal degeneration without evidence of a tear. The anterior and posterior cruciate ligaments are intact. The medial collateral ligament and lateral ligamentous complex are intact. The patellar and quadriceps tendons are intact. Mild and moderate degenerative changes are present. There is severe patellofemoral chondromalacia. There is a large presumed subchondral cyst in the proximal tibia measuring 22 mm with surrounding bone marrow edema. There is 6 mm of lateral patellar subluxation. Mild distal patellar tendinitis is identified. No significant joint effusion is seen. The musculature is intact. No soft tissue mass or cyst is identified. IMPRESSION: Postop change versus tear posterior horn medial meniscus. Degenerative change and chondromalacia. Large presumed subchondral cyst in the distal tibia with surrounding bone marrow edema. Reviewed, Interpreted and Dictated by Klaus Mcgrath III, MD Transcribed by Vashti Jara Authenticated by Klaus Mcgrath III, MD on 12/09/2021 03:38:59 PM [facility]
== END ==
PROVIDERS: PCP Nurse Practitioner Family; Visit Provider Nurse Practitioner Family
DX: M25.561 Pain in right knee (principal)
CPT/HCPCS: 73721

== ENCOUNTER → 2021-12-31 12:44 | Outpatient (CLI) | payer MEDICARE, BC, SELFPAY ==
--- NOTE | 2021-12-31 12:53 | XR_ITS ---
FINAL REPORT CLINICAL HISTORY: rt knee pain FINDINGS: RIGHT KNEE 4 views were obtained. There is no acute fracture or dislocation. There is degenerative joint disease. There is no soft tissue abnormality. IMPRESSION: Degenerative joint disease with no acute bony abnormality. Reviewed, Interpreted and Dictated by Tiffany Tony MD Transcribed by Katya Maldoando Authenticated by Tiffany Tony MD on 12/31/2021 02:05:08 PM [facility]
== END ==
PROVIDERS: PCP Nurse Practitioner Family; Visit Provider Orthopaedic Surgery
DX: M25.561 Pain in right knee (principal)
CPT/HCPCS: 73564

== ENCOUNTER → 2022-04-13 13:11 | Outpatient (CLI) | payer MEDICARE, BC, SELFPAY ==
--- NOTE | 2022-04-13 13:15 | MM_ITS ---
PROCEDURE INFORMATION: Exam: MG Bilateral Screening 3D Mammography Exam date and time: 04/13/2022 1:10 PM Age: 66 years old Clinical indication: Screening examination TECHNIQUE: Imaging protocol: Bilateral Screening tomosynthesis and 2D mammography including computer-aided detection (CAD) when performed. COMPARISON: 1. MG MM DIG SCREENING MAMM BI W/CAD 04/06/2021 3:09 PM 2. MG MM DIG SCREENING MAMM BI W/CAD 02/24/2020 1:52 PM FINDINGS: MAMMOGRAPHY: Breast composition: The breasts are heterogeneously dense, which may obscure small masses. Mass: None. Architectural distortion: None. Calcifications: No suspicious calcifications. Asymmetric density: None. Skin thickening: None. Axillary adenopathy: None. IMPRESSION: No mammographic evidence of malignancy. Annual screening is recommended unless otherwise clinically indicated. ASSESSMENT: BI-RADS Category 1: Negative
== END ==
PROVIDERS: PCP Nurse Practitioner Family; Visit Provider Nurse Practitioner Family
DX: Z12.31 Encounter for screening mammogram for malignant neoplasm of breast (principal)
CPT/HCPCS: 77063; 77067

== ENCOUNTER → 2022-05-04 11:53 | Outpatient (CLI) | payer MEDICARE, BC, SELFPAY ==
[2022-05-04 15:58] LABS: Activated Partial Thrombo Time 27.6 seconds (22.8-30.6)
== END ==
PROVIDERS: PCP Family Medicine; Visit Provider Family Medicine
DX: Z01.419 Encounter for gynecological examination (general) (routine) without abnormal findings (principal); Z51.81 Encounter for therapeutic drug level monitoring
CPT/HCPCS: 36415; 85730

== ENCOUNTER → 2023-03-27 13:40 | Outpatient (CLI) | payer MEDICARE, BC, SELFPAY ==
[2023-03-27 14:31] LABS: Basophils # 0.1 K/mm3 (0-0.2); Basophils % 0.5 % (0.1-2.0); Eosinophils # 0.2 K/mm3 (0.0-0.4); Eosinophils % 1.9 % (0.1-12.0); Hematocrit 34.7 % (37.0-47.0); Hemoglobin 10.9 g/dL (12.2-16.2); Lymphocytes # 2.1 K/mm3 (0.7-4.5); Lymphocytes % 16.9 % (10-50); Mean Corpuscular HGB Conc 31.5 g/dL (31.8-35.4); Mean Corpuscular Hemoglobin 27.3 pg (27.0-31.2); Mean Corpuscular Volume 86.5 fl (81-99); Mean Platelet Volume 7.1 fl (7.4-10.4); Monocytes # 0.9 K/mm3 (0.1-1.0); Neutrophils # 9.4 K/mm3 (1.8-7.8); Neutrophils % 73.6 % (37.0-80.0); Platelet Count 492 K/mm3 (142-424); Red Blood Count 4.01 M/mm3 (4.20-5.40); Red Cell Distribution Width 16.2 % (11.5-17.5); White Blood Count 12.7 K/mm3 (4.8-10.8)
[2023-03-27 14:59] LABS: Chloride 108 mmol/L (98-107); Sodium 140 mmol/L (136-145)
[2023-03-27 15:01] LABS: Blood Urea Nitrogen 11 mg/dl (7-17); Estimated Glomerular Filt Rate 62 ml/min (>60); GFR (African American) 75 ML/MIN (>60)
[2023-03-27 15:02] LABS: Alanine Aminotransferase 27 U/L (12-78); Albumin Level 3.9 g/dl (3.5-5.0); Albumin/Globulin Ratio 1.3 (1.1-1.8); Alkaline Phosphatase 91 U/L (38-126); Aspartate Amino Transferase 31 U/L (14-36); Bilirubin,Total 0.4 mg/dl (0.2-1.3); Calcium 9.8 mg/dl (8.4-10.2); Carbon Dioxide 25 mmol/L (22.0-30.0); Globulin 2.9 g/dL (1.3-3.2); Glucose 100 mg/dl (74-100); Total Protein,Serum 6.8 g/dl (6.3-8.2)
[2023-04-04 02:35] LABS: Interpretation: Negative (.)
== END ==
LOC: LAB 13:41
PROVIDERS: PCP Family Medicine; Visit Provider Internal Medicine Medical Oncology
DX: R76.0 Raised antibody titer (principal); D72.829 Elevated white blood cell count, unspecified; D47.1 Chronic myeloproliferative disease; G89.29 Other chronic pain
CPT/HCPCS: 36415; 80053; 81206; 81270; 85025; 88184; 88185

== ENCOUNTER → 2023-04-04 11:41 | Outpatient (CLI) | payer MEDICARE, BC, SELFPAY | PROVIDERS: PCP Family Medicine; Visit Provider Internal Medicine Rheumatology | DX: L50.8 Other urticaria (principal) ==

== ENCOUNTER → 2023-04-05 12:26 | Outpatient (CLI) | payer MEDICARE, BC, SELFPAY ==
[2023-04-05 12:37] LABS: Microscopic, Urine URINE MICROSCOPIC (MICROSCOPIC)
[2023-04-05 13:09] LABS: Basophils # 0.1 K/mm3 (0-0.2); Basophils % 0.6 % (0.1-2.0); Eosinophils # 0.3 K/mm3 (0.0-0.4); Eosinophils % 2.4 % (0.1-12.0); Hematocrit 37.4 % (37.0-47.0); Hemoglobin 11.6 g/dL (12.2-16.2); Lymphocytes # 2.3 K/mm3 (0.7-4.5); Mean Corpuscular Hemoglobin 26.8 pg (27.0-31.2); Mean Corpuscular Volume 86.4 fl (81-99); Mean Platelet Volume 7.3 fl (7.4-10.4); Monocytes # 0.9 K/mm3 (0.1-1.0); Monocytes % 6.3 % (1.7-9.3); Neutrophils # 10.6 K/mm3 (1.8-7.8); Neutrophils % 74.7 % (37.0-80.0); Platelet Count 513 K/mm3 (142-424); Red Blood Count 4.33 M/mm3 (4.20-5.40); Red Cell Distribution Width 16.1 % (11.5-17.5); White Blood Count 14.1 K/mm3 (4.8-10.8)
[2023-04-05 13:31] LABS: Appearance,Urine Clear (Clear); Bilirubin,Urine Negative (Negative); Blood, Urine Negative (Negative); Color,Urine Yellow (Yellow); Glucose,Urine (UA) Negative (Negative); Ketones,Urine Negative (Negative); Leukocyte Esterase,Urine Negative (Negative); Nitrate,Urine Negative (Negative); Protein,Urine Negative (Negative); Specific Gravity, Urine 1.005 (1.005-1.030); Urobilinogen,Urine 0.2 EU/dl (0.2)
[2023-04-05 13:39] LABS: Alanine Aminotransferase 23 U/L (12-78); Albumin Level 4.7 g/dl (3.5-5.0); Albumin/Globulin Ratio 1.4 (1.1-1.8); Alkaline Phosphatase 95 U/L (38-126); Anion Gap 12.6 mEq/L (5-15); Aspartate Amino Transferase 29 U/L (14-36); Bilirubin,Total 0.3 mg/dl (0.2-1.3); Blood Urea Nitrogen 11 mg/dl (7-17); Calcium 9.6 mg/dl (8.4-10.2); Carbon Dioxide 27 mmol/L (22.0-30.0); Chloride 107 mmol/L (98-107); Creatine Kinase 109 U/L (30-135); Estimated Glomerular Filt Rate 62 ml/min (>60); GFR (African American) 75 ML/MIN (>60); Globulin 3.3 g/dL (1.3-3.2); Glucose 98 mg/dl (74-100); Potassium 4.6 mmoL/L (3.5-5.1); Sodium 142 mmol/L (136-145)
[2023-04-05 13:44] LABS: WBC,Urine Occasional #/hpf (0-3)
[2023-04-05 13:45] LABS: C-Reactive Protein 0.9 mg/L (0-4)
[2023-04-05 14:01] LABS: 25-OH Vitamin D, Total 78.7 ng/mL (30-100); Free T4 (Free Thyroxine) 0.88 ng/dl (0.78-2.19)
[2023-04-05 14:04] LABS: Erythrocyte Sedimentation Rate 38 mm/hr (0-30)
[2023-04-05 14:15] LABS: Thyroid Stimulating Hormone 1.28 uIU/mL (0.465-4.68)
[2023-04-05 14:35] LABS: Vitamin B12 358 pg/mL (239-931)
[2023-04-05 15:15] LABS: Ferritin 5.64 ng/ml (11.1-264)
[2023-04-05 16:19] LABS: Total Iron Binding Capacity 452 ug/dL (265-497)
[2023-04-05 21:18] LABS: Iron 29 ug/dL (37-170)
[2023-04-06 10:30] LABS: HIV Screen 4th Generation wRfx Non Reactive (Non Reactive)
[2023-04-06 12:01] LABS: Complement C3 140 mg/dL (82-167); RA Latex Turbid. 11.1 IU/mL (<14.0)
[2023-04-06 16:54] LABS: Albumin 3.5 g/dL (2.9-4.4); Alpha-1-Globulin 0.3 g/dL (0.0-0.4); Alpha-2-Globulin 0.9 g/dL (0.4-1.0); Anti-Cyclic Citrullinated Pept 2 units (0-19); Gamma Globulin 1.1 g/dL (0.4-1.8); Immunoglobulin A, Qn 235 mg/dL (87-352); Immunoglobulin G, Qn 1033 mg/dL (586-1602); Immunoglobulin M, Qn 188 mg/dL (26-217); Protein, Total 6.9 g/dL (6.0-8.5)
[2023-04-06 19:51] LABS: dsDNA AB Crithidia Negative (Negative)
[2023-04-12 08:50] LABS: Anti-Centromere B Antibodies <0.2; Anti-Jo-1 <0.2
[2023-04-12 08:51] LABS: Anti-Smith Antibody <0.2; Antichromatin Antibodies <0.2; Antiscleroderma-70 Antibodies <0.2; RNP Antibodies <0.2; Sjogren's Anti-SS-A <0.2; Sjogren's Anti-SS-B <0.2
[2023-04-12 08:52] LABS: Anti-DNA (DS) Ab Qn 1
[2023-04-12 08:53] LABS: Free Kappa Lt Chains 25.5; Free Lambda Lt Chains 13.9
== END ==
PROVIDERS: PCP Internal Medicine Rheumatology; Visit Provider Internal Medicine Medical Oncology
DX: D50.9 Iron deficiency anemia, unspecified (principal); R53.83 Other fatigue; R76.8 Other specified abnormal immunological findings in serum; L50.8 Other urticaria; Z68.25 Body mass index [BMI] 25.0-25.9, adult; Z11.4 Encounter for screening for human immunodeficiency virus [HIV]
CPT/HCPCS: 36415; 80053; 81001; 82306; 82550; 82607; 82728; 82746; 82784; 83540; 83550; 83883; 83970; 84155; 84165; 84439; 84443; 85025; 85651; 86140; 86161; 86200; 86225; 86235; 86334; 86431; 86703; G0432

== ENCOUNTER 2023-04-12 13:00 | Outpatient (CLI) | payer MEDICARE, BC, SELFPAY ==
[2023-04-12 13:25] VITALS: BP 122/74; PULSE 81; RESP 18; O2SAT 99
[2023-04-12 14:00] VITALS: BP 129/72; PULSE 82
== END 2023-04-12 14:03 | disposition home or self-care (01) ==
LOC: INF 13:01
PROVIDERS: PCP Family Medicine; Visit Provider Internal Medicine Medical Oncology
DX: D50.9 Iron deficiency anemia, unspecified (principal); E61.1 Iron deficiency
CPT/HCPCS: 96365; J1756

== ENCOUNTER 2023-04-19 12:58 | Outpatient (CLI) | payer MEDICARE, BC, SELFPAY ==
[2023-04-19 13:13] VITALS: BP 111/67; PULSE 69; RESP 18; O2SAT 99
[2023-04-19 13:55] VITALS: BP 124/91; PULSE 62; RESP 18; O2SAT 99
== END 2023-04-19 13:55 | disposition home or self-care (01) ==
LOC: INF 13:00
PROVIDERS: PCP Family Medicine; Visit Provider Internal Medicine Medical Oncology
DX: D50.9 Iron deficiency anemia, unspecified (principal); E61.1 Iron deficiency
CPT/HCPCS: 96365; J1756

== ENCOUNTER 2023-04-26 12:52 | Outpatient (CLI) | payer MEDICARE, BC, SELFPAY ==
[2023-04-26 13:20] VITALS: BP 116/67; PULSE 67; RESP 17; O2SAT 97
[2023-04-26 14:00] VITALS: BP 122/69; PULSE 65; RESP 16
== END 2023-04-26 14:15 | disposition home or self-care (01) ==
LOC: INF 12:53
PROVIDERS: PCP Family Medicine; Visit Provider Internal Medicine Medical Oncology
DX: D50.9 Iron deficiency anemia, unspecified (principal); E61.1 Iron deficiency
CPT/HCPCS: 96365; J1756

== ENCOUNTER 2023-05-03 12:55 | Outpatient (CLI) | payer MEDICARE, BC, SELFPAY ==
[2023-05-03 13:23] VITALS: BP 113/70; PULSE 62; RESP 18; O2SAT 99
[2023-05-03 13:50] VITALS: BP 110/68; PULSE 65; RESP 18; O2SAT 99
== END 2023-05-03 13:55 | disposition home or self-care (01) ==
LOC: INF 12:56
PROVIDERS: PCP Family Medicine; Visit Provider Internal Medicine Medical Oncology
DX: D50.9 Iron deficiency anemia, unspecified (principal); E61.1 Iron deficiency
CPT/HCPCS: 96365; J1756

== ENCOUNTER → 2023-05-04 12:46 | Outpatient (CLI) | payer MEDICARE, BC, SELFPAY ==
--- NOTE | 2023-05-04 12:56 | MM_ITS ---
PROCEDURE INFORMATION: Exam: MG Bilateral Screening 3D Mammography Exam date and time: 05/04/2023 1:05 PM Age: 67 years old Clinical indication: Screening examination TECHNIQUE: Imaging protocol: Bilateral Screening tomosynthesis and 2D mammography including computer-aided detection (CAD) when performed. COMPARISON: 1. MG MM DIG SCREENING MAMM BI W/CAD 04/13/2022 1:10 PM 2. MG MM DIG SCREENING MAMM BI W/CAD 04/06/2021 3:09 PM FINDINGS: MAMMOGRAPHY: Breast composition: The breasts are heterogeneously dense, which may obscure small masses. Mass: None. Architectural distortion: None. Calcifications: No suspicious calcifications. Asymmetric density: None. Skin thickening: None. Axillary adenopathy: None. IMPRESSION: No mammographic evidence of malignancy. Annual screening is recommended unless otherwise clinically indicated. ASSESSMENT: BI-RADS Category 1: Negative
== END ==
PROVIDERS: PCP Family Medicine; Visit Provider Family Medicine
DX: Z12.31 Encounter for screening mammogram for malignant neoplasm of breast (principal)
CPT/HCPCS: 77063; 77067

== ENCOUNTER 2023-05-10 12:48 | Outpatient (CLI) | payer MEDICARE, BC, SELFPAY ==
[2023-05-10 13:20] VITALS: BP 120/72; PULSE 76; RESP 18; O2SAT 99
[2023-05-10 13:50] VITALS: BP 121/76; PULSE 72; RESP 18; O2SAT 99
== END 2023-05-10 13:55 | disposition home or self-care (01) ==
LOC: INF 12:49
PROVIDERS: PCP Family Medicine; Visit Provider Internal Medicine Medical Oncology
DX: E61.1 Iron deficiency (principal)
CPT/HCPCS: 96365; J1756

== ENCOUNTER 2023-07-05 11:11 | Outpatient (CLI) | payer MEDICARE, BC, SELFPAY ==
[2023-07-05 11:18] VITALS: BMI 26.1
--- NOTE | 2023-07-05 11:23 | PC.NURSE ---
pt presents today for repeat labwork. Venipuncture performed on pt per Annie Jeffries RN using a butterfly access needle to the pt's rt ac x 1 stick. Blood obtained for labs as ordered per md and specimens sent to lab for analysis. Site secured with 2x2 gauze and coban once needle was withdrawn.
[2023-07-05 11:50] LABS: Basophils # 0.1 K/mm3 (0-0.2); Basophils % 0.9 % (0.1-2.0); Eosinophils # 0.4 K/mm3 (0.0-0.4); Eosinophils % 3.9 % (0.1-12.0); Hematocrit 44.7 % (37.0-47.0); Hemoglobin 14.6 g/dL (12.2-16.2); Lymphocytes # 2.3 K/mm3 (0.7-4.5); Lymphocytes % 25.9 % (10-50); Mean Corpuscular HGB Conc 32.7 g/dL (31.8-35.4); Mean Corpuscular Hemoglobin 29.3 pg (27.0-31.2); Mean Corpuscular Volume 89.7 fl (81-99); Mean Platelet Volume 7.7 fl (7.4-10.4); Monocytes # 0.7 K/mm3 (0.1-1.0); Monocytes % 7.4 % (1.7-9.3); Neutrophils # 5.6 K/mm3 (1.8-7.8); Neutrophils % 61.9 % (37.0-80.0); Platelet Count 347 K/mm3 (142-424); Red Blood Count 4.99 M/mm3 (4.20-5.40); Red Cell Distribution Width 18.4 % (11.5-17.5)
[2023-07-05 11:55] LABS: Chloride 107 mmol/L (98-107); Potassium 3.9 mmoL/L (3.5-5.1); Sodium 141 mmol/L (136-145)
[2023-07-05 11:58] LABS: Alanine Aminotransferase 40 U/L (12-78); Albumin Level 4.2 g/dl (3.5-5.0); Albumin/Globulin Ratio 1.3 (1.1-1.8); Alkaline Phosphatase 61 U/L (38-126); Anion Gap 7.9 mEq/L (5-15); Aspartate Amino Transferase 41 U/L (14-36); Bilirubin,Total 0.3 mg/dl (0.2-1.3); Blood Urea Nitrogen 14 mg/dl (7-17); Calcium 9.1 mg/dl (8.4-10.2); Carbon Dioxide 30 mmol/L (22.0-30.0); Creatinine Clearance Estimated 62 mL/min (50-200); Estimated Glomerular Filt Rate 62 ml/min (>60); GFR (African American) 75 ML/MIN (>60); Globulin 3.2 g/dL (1.3-3.2); Glucose 85 mg/dl (74-100); Iron 82 ug/dL (37-170); Total Protein,Serum 7.4 g/dl (6.3-8.2)
[2023-07-05 12:08] LABS: Total Iron Binding Capacity 340 ug/dL (265-497)
[2023-07-05 12:37] LABS: Ferritin 48.3 ng/ml (11.1-264)
== END 2023-07-05 11:30 | disposition home or self-care (01) ==
LOC: INF 11:12
PROVIDERS: Internal Medicine Medical Oncology; PCP Family Medicine; Visit Provider Internal Medicine Medical Oncology
DX: D50.0 Iron deficiency anemia secondary to blood loss (chronic) (principal)
CPT/HCPCS: 36415; 80053; 82728; 83540; 83550; 85025

== ENCOUNTER 2023-08-09 15:04 | Outpatient (CLI) | payer MEDICARE, BC, SELFPAY ==
[2023-08-09 15:41] LABS: Basophils # 0.1 K/mm3 (0-0.2); Basophils % 1.1 % (0.1-2.0); Eosinophils # 0.3 K/mm3 (0.0-0.4); Eosinophils % 2.8 % (0.1-12.0); Hematocrit 42.3 % (37.0-47.0); Hemoglobin 13.7 g/dL (12.2-16.2); Lymphocytes # 2.6 K/mm3 (0.7-4.5); Lymphocytes % 22.7 % (10-50); Mean Corpuscular HGB Conc 32.5 g/dL (31.8-35.4); Mean Corpuscular Hemoglobin 30.3 pg (27.0-31.2); Mean Corpuscular Volume 93.3 fl (81-99); Mean Platelet Volume 7.7 fl (7.4-10.4); Monocytes # 0.6 K/mm3 (0.1-1.0); Monocytes % 5.4 % (1.7-9.3); Neutrophils # 7.7 K/mm3 (1.8-7.8); Neutrophils % 68.1 % (37.0-80.0); Platelet Count 412 K/mm3 (142-424); Red Blood Count 4.53 M/mm3 (4.20-5.40); White Blood Count 11.4 K/mm3 (4.8-10.8)
[2023-08-09 17:14] LABS: Iron 66 ug/dL (37-170)
[2023-08-09 17:23] LABS: Total Iron Binding Capacity 450 ug/dL (265-497)
[2023-08-09 17:50] LABS: Ferritin 16.7 ng/ml (11.1-264)
== END 2023-08-09 23:59 ==
LOC: LAB 15:06
PROVIDERS: Internal Medicine Gastroenterology; PCP Family Medicine; Visit Provider Nurse Practitioner Family
DX: D64.9 Anemia, unspecified (principal)
CPT/HCPCS: 36415; 82728; 83540; 83550; 85025

== ENCOUNTER 2023-08-10 15:35 | Outpatient (CLI) | payer MEDICARE, BC, SELFPAY ==
[2023-08-10 16:02] LABS: Occult Blood,Stool Negative (Negative)
== END 2023-08-10 23:59 ==
LOC: LAB.DROPOF 15:36
PROVIDERS: PCP Family Medicine; Visit Provider Internal Medicine Gastroenterology
DX: D64.9 Anemia, unspecified (principal)
CPT/HCPCS: 82272; G0328

== ENCOUNTER 2023-10-24 14:21 | Outpatient (CLI) | payer MEDICARE, BC, SELFPAY ==
[2023-10-24 16:10] LABS: 25-OH Vitamin D, Total 90.5 ng/mL (30-100)
== END 2023-10-24 23:59 ==
PROVIDERS: PCP Family Medicine; Visit Provider Allergy & Immunology
DX: L50.8 Other urticaria (principal)
CPT/HCPCS: 36415; 82306

== ENCOUNTER 2023-11-02 13:29 | Outpatient (CLI) | payer MEDICARE, BC, SELFPAY ==
[2023-11-02 13:44] LABS: Basophils # 0.1 K/mm3 (0-0.2); Basophils % 0.9 % (0.1-2.0); Eosinophils # 0.3 K/mm3 (0.0-0.4); Eosinophils % 3.1 % (0.1-12.0); Hematocrit 45.7 % (37.0-47.0); Hemoglobin 14.6 g/dL (12.2-16.2); Lymphocytes # 2.2 K/mm3 (0.7-4.5); Lymphocytes % 19.4 % (10-50); Mean Corpuscular Volume 96.9 fl (81-99); Mean Platelet Volume 6.5 fl (7.4-10.4); Monocytes # 0.7 K/mm3 (0.1-1.0); Neutrophils # 7.8 K/mm3 (1.8-7.8); Neutrophils % 70.6 % (37.0-80.0); Platelet Count 351 K/mm3 (142-424); Red Blood Count 4.72 M/mm3 (4.20-5.40); Red Cell Distribution Width 14.2 % (11.5-17.5); White Blood Count 11.1 K/mm3 (4.8-10.8)
[2023-11-02 14:34] LABS: Iron 98 ug/dL (37-170)
[2023-11-02 14:43] LABS: Total Iron Binding Capacity 377 ug/dL (265-497)
[2023-11-02 15:10] LABS: Ferritin 16.3 ng/ml (11.1-264)
== END 2023-11-02 23:59 ==
PROVIDERS: PCP Family Medicine; Visit Provider Internal Medicine Medical Oncology
DX: D50.9 Iron deficiency anemia, unspecified (principal)
CPT/HCPCS: 36415; 82728; 83540; 83550; 85025

== ENCOUNTER 2023-11-20 10:12 | Outpatient (POV) | payer MEDICARE, BC, SELFPAY ==
--- OUTSIDE RECORDS SUMMARY | 2023-11-20 10:14 | XMS_ITS ---
Author Name Tereso Lux Address [address] [place] [id number] Organization Unknown Address [address] [place] [id number] ALLERGIES AND ADVERSE REACTIONS No information ASSESSMENT No information CHIEF COMPLAINT No information MEDICATIONS No information OBJECTIVE DATA No information PHYSICAL EXAMINATION No information TREATMENT PLAN Planned Care Start Date Provider Encounter for Check-up [id number] AC Miller PROBLEMS No information RESULTS No information REVIEW OF SYSTEMS No information SUBJECTIVE DATA No information VITAL SIGNS No information
[2023-11-20 10:19] VITALS: BP 109/73; PULSE 74; RESP 18; TEMP 36.8; O2SAT 98; BMI 24.7
--- NOTE | 2023-11-20 11:39 | EXP.PAIN.OV ---
HPI Data of Consult Patient: known to practice within the last 3 years Consult date: 11/20/23 Requesting Physician: Rosa Mcdonald APRN Primary Care Provider: Rigoberto Miller MD Consult Narrative Reason for consult: Low back pain, buttocks pain History of present illness: Ms. Gutierrez is a 68 year old female who presents today as a new patient. She is a referral from [facility]. Today she rates her pain a 5 out of 10. Patient states she has pain throughout her low back and buttocks area and describes it as a chronic aching, throbbing sensation that does interfere with her ability perform activities of daily living such as cooking and cleaning. Patient does state that she was a patient of ours about 2 years ago and that her last epidural injection provided such significant relief that she did not need to come back before now. Patient states that that injection has just officially worn off within the last month or so. Patient states she is very interested in repeating this injection. Patient states that she had such overall improved function with decreased pain and that she was not even taking any medication. Patient states now she is relying back on naproxen, heat and ice and topicals with minimal relief. Patient has had physical therapy in the past and has continued to do her at home exercising and stretching for longer than 6 weeks with minimal relief. She is interested in any help we may be able to provide. Her Gokul has been reviewed. CC: Rosa Mcdonald APRN [facility] Disclaimer: The information contained in this section may have been updated after the patient was seen, as this information can be updated by other users. Medical History Arthritis Kidney stone HLD (hyperlipidemia) HTN (hypertension), benign Depression COPD (chronic obstructive pulmonary disease) Surgical History Hx of tonsillectomy History of arthroscopy of both knees Family History Other Hyperlipidemia Social History Smoking Status: Current every day smoker tobacco type: cigarettes packs per day: 1 second hand exposure: No alcohol intake: never substance use type: denies use current occupational status: other Travel in the last 8 weeks: None household members: friend(s) housing: house current occupational exposures/hazards: No caffeine: Yes Review of Systems Review of Systems Review of systems:: pertinent systems reviewed and negative unless documented below Review of systems (narrative): Review of Systems: General: No recent weight changes, no fever, no sleep disturbances Respiratory: No cough, no shortness of air, no recurring pulmonary infections Cardiovascular/peripheral vascular: No chest pain, no palpitations, no edema, no shortness of breath Gastrointestinal: No new onset incontinence, normal bowel movements reported Genitourinary: No new onset incontinence Musculoskeletal: Low back pain, buttocks pain Psychiatric: [Normal mood/affect] Neurological: [Denies weakness in extremities], [denies balance issues] Meds Home Medications and Allergies Home Medications Medication Instructions Recorded Confirmed Type paroxetine HCl 40 mg tablet 40 mg PO DAILY Depression 02/28/19 11/02/23 History budesonide-formoterol HFA 160 2 puff inhalation BID Allergy 03/27/23 11/02/23 History mcg-4.5 mcg/actuation aerosol Symptoms inhaler cholecalciferol (vitamin D3) 1,250 1,250 mcg PO WEEKLY Diet Supplement 03/27/23 11/02/23 History mcg (50,000 unit) capsule simvastatin 20 mg tablet 20 mg PO HS cholesterol 03/27/23 11/02/23 History New Prescriptions to Start Prescriptions: Allergies Allergy/AdvReac Type Severity Reaction Status Date / Time penicillin G Allergy Severe Anaphylaxis Verified 11/02/23 13:02 Objective Vital signs: Temp Pulse Resp BP Pulse Ox O2 Del Method 98.3 F 74 18 109/73 L 98 Room Air 11/20/23 10:19 11/20/23 10:19 11/20/23 10:19 11/20/23 10:19 11/20/23 10:11/20/23 10:19 Narrative: Physical Exam: General: Alert and oriented x3, no acute distress, pleasant and cooperative Lungs: Respirations even and unlabored, symmetrical chest expansion Eyes: PERRL Musculoskeletal: Flexion and extension of lumbar [spine] somewhat guarded secondary to pain, [antalgic gait noted] Neurological: Speech clear, no gross sensory deficit Additional findings Additional findings: CLINICAL INDICATION: DDD LBP. PAIN WORSE ON LT. HX DDD. COMPARISON: MR SPLUMBWO MR lumbar spine wo con from 02/15/2018 TECHNIQUE: Standard multiplanar multiecho sequences are performed without contrast. 3-D MIP and myelographic images are also rendered and reviewed FINDINGS: There is normal alignment. The spinal cord ends at the L1 level. There is lumbar scoliosis convex left measuring 17 degrees by the Alcocer technique. L1-L2: Mild bulging disc. There is a small central disc protrusion which is slightly eccentric toward the left and may be slightly larger compared to the previous exam causing some impingement upon the thecal sac and cauda equina region but no obvious nerve impingement. L2-L3: Degenerative disc disease with bulging disc with type 1 endplate changes with facet and ligamentum hypertrophy. There is a small right paracentral disc protrusion resulting in right lateral recess narrowing and causing mild impingement upon the right L3 nerve root along with the facet and ligamentum hypertrophy. The right paracentral disc protrusion has developed since the previous exam. There is 7 mm right lateral translation of L2 on L3. L3-L4: Bulging disc along with facet and ligamentum hypertrophy. There is bilateral lateral recess narrowing and moderate right foraminal narrowing and mild left foraminal narrowing. The right lateral recess narrowing may be slightly worse compared to the previous exam. There is a small left foraminal disc protrusion contributing to the foraminal narrowing min is not significantly changed to somewhat less apparent. L4-5: Bulging disc which is eccentric toward the right. There is facet and ligamentum hypertrophy with resultant bilateral lateral recess narrowing and bilateral foraminal narrowing not significantly changed. There remains transverse narrowing of the canal not significantly changed. L5-S1: Degenerative disc disease with bulging disc with facet and ligamentum hypertrophy with bilateral foraminal narrowing. IMPRESSION: Abnormal MRI of the lumbar spine. There is multilevel lumbar spondylosis with bulging and protruding disc along with facet and ligamentum hypertrophy with varying areas of lateral recess and foraminal narrowing. Please see above for detailed description at each level. Dictated by: Lupillo Nolasco MD 09/17/2020 11:11 Lupillo Nolasco MD in OV 09/17/2020 11:11 Assessment and Plan *Assessment and plan (1) Degenerative joint disease (DJD) of lumbar spine: Status: Chronic Qualifiers: Spinal osteoarthritis complication: with radiculopathy Qualified Code(s): M47.26 - Other spondylosis with radiculopathy, lumbar region Category: Medical Code(s): M47.816 - Spondylosis without myelopathy or radiculopathy, lumbar region (2) Lumbar radiculopathy: Status: Chronic Category: Medical Code(s): M54.16 - Radiculopathy, lumbar region Plan Patient is experiencing worsening pain in her low back and buttocks with limited range of motion of her lumbar spine. I have reviewed over her previous chart and she did have a lumbar epidural steroid injection of L4-L5 that did provide nearly 90 to 100% relief. I have discussed with the patient that she may benefit from repeat of this injection. Risk and benefits were discussed with patient and she would like to proceed forward with this plan of care. I have also discussed with patient in future that she may benefit from a lumbar medial branch block due to worsening pain with certain activities such as bending, twisting and lifting. We will follow-up with this at future visits. Patient will be scheduled for an LESI L4-L5 under fluoroscopy. Patient has been instructed to contact the clinic with any concerns before the next appointment. Dr. Rodríguez has reviewed this note and agrees with this plan of care. This note was dictated using voice recognition software and make contain errors or omissions.
== END 2023-11-20 23:59 ==
LOC: SC.PAIN 10:13
PROVIDERS: PCP Family Medicine; Visit Provider Nurse Practitioner Family
DX: M47.26 Other spondylosis with radiculopathy, lumbar region (principal)
CPT/HCPCS: 99202; G0463

== ENCOUNTER → 2023-12-05 11:23 | Day surgery (SDC) | payer MEDICARE, BC, SELFPAY ==
[2023-12-05 11:40] VITALS: BP 119/46; PULSE 65; RESP 16; TEMP 36.6; O2SAT 97; BMI 25.0
[2023-12-05 11:45] VITALS: BP 103/56; PULSE 58; PULSE 59; RESP 18; O2SAT 100; O2SAT 99
[2023-12-05] MEDS: methylPREDNISolone ACETATE 80MG/ML VIAL 80 MG (11:46)
[2023-12-05 11:53] VITALS: BP 123/70; PULSE 67; RESP 18; O2SAT 97
[2023-12-05] MEDS: IOPAMIDOL-200 (41%);10ML VIAL 10 ML IV (11:55)
--- NOTE | 2023-12-05 12:19 | EXP.PAIN.PRO ---
Procedure Date: 12/05/23 Time: 11:48 Anesthesiologist:: Jesus Barone CRNA Complications:: None Pre-procedure Diagnosis:: Degenerative disc lumbar spine multilevels. Lumbar radiculopathy. Post-procedure Diagnosis:: Same. Indications for Procedure:: Patient very pleasant 68-year-old female comes our clinic today for lumbar epidural steroid injection at the L4-5 level. Patient reports low back pain as well as bilateral hip and leg radicular symptoms. She rates her pain 6/10. Patient reports lumbar back pain intensifies with ambulation and or standing for any length of time. Procedure Details:: Procedure: Lumbar epidural steroid injection under fluoroscopy Informed consent was obtained and the risks and benefits of the procedure were explained to the patient. The patient was taken to the procedure room and noninvasive monitors placed, including noninvasive blood pressure cuff and pulse oximeter. The back was viewed using C-arm Fluoroscopy and prepped using Chloraprep as a cleansing solution and the L4-L5 interspace was palpated. Skin and subcutaneous tissues were anesthetized using lidocaine 1.5% and a 25-gauge needle. After this, an 18-gauge Touhy epidural needle was placed into the L4-L5 interspace and advanced using fluoroscopic guidance and loss of resistance to air until the epidural space was encountered. After confirmation of needle placement in the epidural space, with dye, a solution containing normal saline, 3 mL and Depo-Medrol 80 mg were incrementally injected into the lumbar epidural space. The patient tolerated the procedure well with no complications. The patient was observed in the Pain Clinic and then discharged home neurologically intact. Plan and Disposition:: Patient was discharged without incident.
== END | disposition home or self-care (01) ==
PROVIDERS: PCP Family Medicine; Visit Provider Nurse Anesthetist, Certified Registered
DX: M51.16 Intervertebral disc disorders with radiculopathy, lumbar region (principal)
CPT/HCPCS: 62323; J1010; Q9966

== ENCOUNTER 2023-12-18 13:27 | Outpatient (POV) | payer MEDICARE, BC, SELFPAY ==
[2023-12-18 13:33] VITALS: BP 126/73; PULSE 70; RESP 18; O2SAT 98; BMI 25.0
--- NOTE | 2023-12-18 14:09 | EXP.PAIN.SOA ---
[facility] Pain Management SOAP Note Subjective:: Patient is a pleasant 68-year-old female who presents today for follow-up of lumbar epidural steroid injection L4-L5 on 12/05/2023. Today she rates her pain as 1 out of 10. Patient states that she has had at least 99% improvement following this injection. She states she has been able to increase her activity with overall decreased pain and feels much more functional. She states that she has been outside gardening and has had a little aches and pains with certain movements however she knows that she is doing things that she has not been able to do for some time. Her Gokul has been reviewed and is appropriate. Review of Systems: General: No recent weight changes, no fever, no sleep disturbances Respiratory: No cough, no shortness of air, no recurring pulmonary infections Cardiovascular/peripheral vascular: No chest pain, no palpitations, no edema, no shortness of breath Gastrointestinal: No new onset incontinence, normal bowel movements reported Genitourinary: No new onset incontinence Musculoskeletal: Low back pain Psychiatric: [Normal mood/affect] Neurological: [Denies weakness in extremities], [denies balance issues] Objective:: Physical Exam: General: Alert and oriented x3, no acute distress, pleasant and cooperative Lungs: Respirations even and unlabored, symmetrical chest expansion Eyes: PERRL Musculoskeletal: Flexion and extension of lumbar [spine] somewhat guarded secondary to pain, [antalgic gait noted] Neurological: Speech clear, no gross sensory deficit Assessment:: Degenerative disc disease of lumbar spine with lumbar radiculopathy symptoms Plan:: Patient has had significant improvement following her epidural steroid injection and does not require any additional injection therapy. Patient will return to clinic in 1 month for reevaluation of symptoms and plan of care. Patient has been instructed to contact the clinic with any concerns before the next appointment. Dr. Rodríguez has reviewed this note and agrees with this plan of care. This note was dictated using voice recognition software and make contain errors or omissions. [facility] Disclaimer: The information contained in this section may have been updated after the patient was seen, as this information can be updated by other users. Medical History Arthritis Kidney stone HLD (hyperlipidemia) HTN (hypertension), benign Depression COPD (chronic obstructive pulmonary disease) Surgical History Hx of tonsillectomy History of arthroscopy of both knees Family History Other Hyperlipidemia Social History Smoking Status: Current every day smoker tobacco type: cigarettes packs per day: 1 second hand exposure: No alcohol intake: never substance use type: denies use current occupational status: other Travel in the last 8 weeks: None household members: friend(s) housing: house current occupational exposures/hazards: No caffeine: Yes
== END 2023-12-18 23:59 | disposition home or self-care (01) ==
LOC: SC.PAIN 13:28
PROVIDERS: PCP Family Medicine; Visit Provider Nurse Practitioner Family
DX: M51.16 Intervertebral disc disorders with radiculopathy, lumbar region (principal)
CPT/HCPCS: 99212; G0463

== ENCOUNTER 2024-01-15 11:25 | Outpatient (CLI) | payer MEDICARE, BC, SELFPAY ==
--- NOTE | 2024-01-15 11:30 | XR_ITS ---
FINAL REPORT CLINICAL HISTORY: NERVE ENTRAPMENT SYNDROME OF ARM FINDINGS: RIGHT SHOULDER Three views demonstrate no acute fracture or dislocation. The visualized joint spaces are normally aligned. There are mild degenerative changes of the acromioclavicular and glenohumeral joints. The soft tissues are unremarkable. IMPRESSION: No acute process. Reviewed, Interpreted and Dictated by Klaus Mcgrath III, MD Transcribed by Camryn Martinez Authenticated and [facility]
== END 2024-01-15 23:59 | disposition home or self-care (01) ==
LOC: RAD 11:26
PROVIDERS: PCP Nurse Practitioner; Visit Provider Nurse Practitioner
DX: M25.511 Pain in right shoulder (principal); G56.91 Unspecified mononeuropathy of right upper limb
CPT/HCPCS: 73030

== ENCOUNTER 2024-01-18 13:41 | Outpatient (POV) | payer MEDICARE, BC, SELFPAY ==
--- NOTE | 2024-01-18 13:54 | EXP.PAIN.SOA ---
[facility] Pain Management SOAP Note Subjective:: Patient is a pleasant 68-year-old female who presents today for 1 month follow-up. Today she rates her pain a 1 out of 10. Patient denies any new trauma or injury. She states she still feels like the injection of her lumbar epidural done in November is still providing significant relief. She continues to be able to do things more easily with overall decreased pain and improved function. Her Gokul has been reviewed and is appropriate. Review of Systems: General: No recent weight changes, no fever, no sleep disturbances Respiratory: No cough, no shortness of air, no recurring pulmonary infections Cardiovascular/peripheral vascular: No chest pain, no palpitations, no edema, no shortness of breath Gastrointestinal: No new onset incontinence, normal bowel movements reported Genitourinary: No new onset incontinence Musculoskeletal: Low back pain Psychiatric: [Normal mood/affect] Neurological: [Denies weakness in extremities], [denies balance issues] Objective:: Physical Exam: General: Alert and oriented x3, no acute distress, pleasant and cooperative Lungs: Respirations even and unlabored, symmetrical chest expansion Eyes: PERRL Musculoskeletal: Flexion and extension of lumbar [spine] somewhat guarded secondary to pain, [antalgic gait noted] Neurological: Speech clear, no gross sensory deficit Assessment:: Degenerative disc disease of lumbar spine with lumbar radiculopathy symptoms Plan:: Patient continues to have significant relief and does not require any additional interventions at this time. She will return to clinic in 3 months for reevaluation of symptoms and plan of care. Patient has been instructed to contact the clinic with any concerns before the next appointment. Dr. Rodríguez has reviewed this note and agrees with this plan of care. This note was dictated using voice recognition software and make contain errors or omissions. [facility] Disclaimer: The information contained in this section may have been updated after the patient was seen, as this information can be updated by other users. Medical History Arthritis Kidney stone HLD (hyperlipidemia) HTN (hypertension), benign Depression COPD (chronic obstructive pulmonary disease) Surgical History Hx of tonsillectomy History of arthroscopy of both knees Family History Other Hyperlipidemia Social History Smoking Status: Current every day smoker tobacco type: cigarettes packs per day: 1 second hand exposure: No alcohol intake: never substance use type: denies use current occupational status: other Travel in the last 8 weeks: None household members: friend(s) housing: house current occupational exposures/hazards: No caffeine: Yes
[2024-01-18 13:55] VITALS: BP 140/73; PULSE 72; RESP 16; O2SAT 97; BMI 25.0
== END 2024-01-18 23:59 | disposition home or self-care (01) ==
LOC: SC.PAIN 13:41
PROVIDERS: PCP Family Medicine; Visit Provider Nurse Practitioner Family
DX: M51.16 Intervertebral disc disorders with radiculopathy, lumbar region (principal)
CPT/HCPCS: 99212; G0463

== ENCOUNTER 2024-04-18 13:35 | Outpatient (POV) | payer MEDICARE, BC, SELFPAY ==
[2024-04-18 13:46] VITALS: BP 125/65; PULSE 68; RESP 18; O2SAT 98; BMI 23.8
--- NOTE | 2024-04-18 14:13 | A.OFFVIS_ITS ---
[facility] Disclaimer: The information contained in this section may have been updated after the patient was seen, as this information can be updated by other users. Medical History (Updated 04/11/24 @ 13:56 by Bill Martin MD) Tobacco abuse counseling Tobacco abuse Lung nodule Smoking greater than 30 pack years Pulmonary emphysema Dyspnea on exertion Arthritis Kidney stone HLD (hyperlipidemia) HTN (hypertension), benign Depression COPD (chronic obstructive pulmonary disease) Surgical History Hx of tonsillectomy History of arthroscopy of both knees Family History Other Hyperlipidemia Social History Smoking Status: Current every day smoker tobacco type: cigarettes packs per day: 1 second hand exposure: No alcohol intake: never substance use type: denies use current occupational status: retired Travel in the last 8 weeks: None household members: friend(s) housing: house current occupational exposures/hazards: No caffeine: Yes PM Subjective & Objective Subjective Subjective:: Patient is a pleasant 68-year-old female who presents today for 3-month follow- up. Today she rates her pain at 1 out of 10. Patient denies any new trauma or injury. She states she continues to get significant relief from her epidural that was in November. Patient states she has been able to increase her activity with overall decreased pain and feels much more functional. Her Gokul has been reviewed and is appropriate. Review of Systems: General: No recent weight changes, no fever, no sleep disturbances Respiratory: No cough, no shortness of air, no recurring pulmonary infections Cardiovascular/peripheral vascular: No chest pain, no palpitations, no edema, no shortness of breath Gastrointestinal: No new onset incontinence, normal bowel movements reported Genitourinary: No new onset incontinence Musculoskeletal: Low back pain Psychiatric: [Normal mood/affect] Neurological: [Denies weakness in extremities], [denies balance issues] Pain at rest (0-10 scale): 1 Objective Objective:: Physical Exam: General: Alert and oriented x3, no acute distress, pleasant and cooperative Lungs: Respirations even and unlabored, symmetrical chest expansion Eyes: PERRL Musculoskeletal: Flexion and extension of lumbar [spine] somewhat guarded secondary to pain, [antalgic gait noted] Neurological: Speech clear, no gross sensory deficit Has patient had previous pain injection?: No Conservative treatment options previously tried: Home exercise plan Length of treatment: Longer than 6 Meds Home Medications and Allergies Home Medications ?Medication ?Instructions ?Recorded ?Confirmed ?Type paroxetine HCl 40 mg tablet 40 mg PO DAILY Depression 02/28/19 04/18/24 History budesonide-formoterol HFA 160 2 puff inhalation BID Allergy 03/27/23 04/18/24 History mcg-4.5 mcg/actuation aerosol Symptoms inhaler simvastatin 20 mg tablet 20 mg PO HS cholesterol 03/27/23 04/18/24 History bimatoprost 0.03 % eye drops 1 drp Eye-Both DIRECTED 04/11/24 04/18/24 History nicotine (polacrilex) 2 mg gum 2 mg buccal Q2H PRN nicotine 04/11/24 04/18/24 Rx cravings #396 ea New Prescriptions to Start Prescriptions: Allergies Allergy/AdvReac Type Severity Reaction Status Date / Time penicillin G Allergy Severe Anaphylaxis Verified 04/11/24 13:30 Assessment and Plan *Assessment and plan (1) Lumbar radiculopathy: Status: Chronic Category: Medical Code(s): M54.16 - Radiculopathy, lumbar region (2) Degenerative joint disease (DJD) of lumbar spine: Status: Chronic Qualifiers: Spinal osteoarthritis complication: with radiculopathy Qualified Code(s): M47.26 - Other spondylosis with radiculopathy, lumbar region Category: Medical Code(s): M47.816 - Spondylosis without myelopathy or radiculopathy, lumbar region Plan Patient did have significant relief following her lumbar epidural and does not require any additional intervention at this time. Patient will return to clinic in 6 months for reevaluation of symptoms and plan of care. Patient has been instructed to contact the clinic with any concerns before the next appointment. Dr. Rodríguez has reviewed this note and agrees with this plan of care. This note was dictated using voice recognition software and make contain errors or omissions. All injections are used with Lidocaine or Bupivacaine and Depo Medrol.
== END 2024-04-18 23:59 | disposition home or self-care (01) ==
LOC: SC.PAIN 13:36
PROVIDERS: PCP Family Medicine; Visit Provider Nurse Practitioner Family
DX: M47.26 Other spondylosis with radiculopathy, lumbar region; F17.210 Nicotine dependence, cigarettes, uncomplicated
CPT/HCPCS: 99212; G0463

== ENCOUNTER 2024-05-17 13:35 | Outpatient (CLI) | payer MEDICARE, BC, SELFPAY ==
--- NOTE | 2024-05-17 13:38 | MM_ITS ---
PROCEDURE INFORMATION: Exam: MG Bilateral Screening 3D Mammography Exam date and time: 05/17/2024 1:30 PM Age: 68 years old Clinical indication: Screening examination . Family history of breast carcinoma. TECHNIQUE: Imaging protocol: Bilateral Screening tomosynthesis and 2D mammography including computer-aided detection (CAD) when performed. COMPARISON: 1. MG MM DIG SCREENING MAMM BI W/CAD 05/04/2023 1:05 PM 2. MG MM DIG SCREENING MAMM BI W/CAD 04/13/2022 1:10 PM 3. MG MM DIG SCREENING MAMM BI W/CAD 04/06/2021 3:09 PM FINDINGS: MAMMOGRAPHY: Breast composition: The breasts are heterogeneously dense, which may obscure small masses. Mass: No suspicious masses. Architectural distortion: No suspicious distortion. Calcifications: No suspicious calcifications. Asymmetric density: None. Skin thickening: None. Axillary adenopathy: None. IMPRESSION: 1. No mammographic evidence of malignancy. Annual screening is recommended unless otherwise clinically indicated. 2. Given the reported risk factors for this patient, a breast cancer risk assessment may prove useful for further evaluation. ASSESSMENT: BI-RADS Category 1: Negative.
== END 2024-05-17 23:59 | disposition home or self-care (01) ==
LOC: RAD 13:35
PROVIDERS: PCP Family Medicine; Visit Provider Family Medicine
DX: Z12.31 Encounter for screening mammogram for malignant neoplasm of breast (principal)
CPT/HCPCS: 77063; 77067

== ENCOUNTER 2024-06-10 09:49 | Outpatient (CLI) | payer MEDICARE, BC, SELFPAY ==
--- OUTSIDE RECORDS SUMMARY | 2024-06-10 09:51 | XMS_ITS ---
Laboratory report Created on: April 19, 2024 NUPUR HAWKINS : 1955 Sex: Female Author Organization Unknown PROBLEMS Problems List Code Description RESULTS Laboratory Orders Date Order Code Test 2023-04-05 207140 PROTEIN ELECTRO. ,S 2023-04-05 589869 ANTINUCLEAR AB 9 BY MULTIPLEX 2023-04-05 243131 IMMUNOFIXATION, SERUM 2023-04-05 584271 FREE K+L LT DARA NS,QN,S 2023-04-05 030609 COMPLEMENT C4, S TANYA 2023-04-05 [id number] COMPLEMENT C3, S TANYA 2023-04-05 [id number] RHEUMATOID FACTO R (RF) 2023-04-05 [id number] ANTI-CCP AB, IGG /IGA 2023-04-05 [id number] DSDNA CRITHIDIA LUCILIAE IFA Laboratory Results Date LOINC Test Value Unit Reference Range Interpre tation 2023-04-05 2885-2 PROTEIN, TOTAL 6.9 G/DL 6.0-8.5 2023-04-05 2862-1 ALBUMIN 3.5 G/DL 2.9-4.4 2023-04-05 2865-4 GEVHI-6-XFIVEMKJ .3 G/DL 0.0-0.4 2023-04-05 2868-8 DFLLB-6-NDHMHUGT .9 G/DL 0.4-1.0 2023-04-05 2871-2 BETA GLOBULIN 1.1 G/DL 0.7-1.3 2023-04-05 2874-6 GAMMA GLOBULIN 1.1 G/DL 0.4-1.8 2023-04-05 98019-4 M-SPIKE NOB G/DL NOT OBSERVED 2023-04-05 07378-0 GLOBULIN, TOTAL 3.4 G/DL 2.2-3.9 2023-04-05 1759-0 A/G RATIO 1 0.7-1.7 2023-04-05 65448-4 PDF IMAGE 2023-04-05 5130-0 ANTI-DNA (DS) AB QN 1 IU/ML 0-9 2023-04-05 24153-8 INSECT CONTROL INSPECTOR ANTIBODIES .3 AI 0.0-0.9 2023-04-05 92626-1 GUILLORY ANTIBODIES <0.2 AI 0.0-0.9 2023-04-05 86452-1 ANTISCLERODERMA- 69 ANTIBODIES <0.2 AI 0.0-0.9 2023-04-05 74534-9 SJOGREN'S ANTI-SS-A <0.2 AI 0.0-0.9 2023-04-05 26868-6 SJOGREN'S ANTI-SS-B <0.2 AI 0.0-0.9 2023-04-05 83667-3 ANTICHROMATIN ANTIBODIES <0.2 AI 0.0-0.9 2023-04-05 85040-2 ANTI-MAURICIO-1 <0.2 AI 0.0-0.9 2023-04-05 36726-8 ANTI-CENTROMERE B ANTIBODIES <0.2 AI 0.0-0.9 2023-04-05 39662-6 IMMUNOFIXATION R ESULT, SERUM UPEIP 2023-04-05 2465-3 IMMUNOGLOBULIN G , QN, SERUM 1033 MG/DL 586-1602 2023-04-05 2458-8 IMMUNOGLOBULIN A , QN, SERUM 235 MG/DL 87-352 2023-04-05 2472-9 IMMUNOGLOBULIN M , QN, SERUM 188 MG/DL 26-217 2023-04-05 50056-5 FREE KAPPA LT CHAINS,S 25.5 MG/L 3.3-19 .4 H 2023-04-05 84356-8 FREE LAMBDA LT CHAINS,S 13.9 MG/L 5.7-2 6.3 2023-04-05 95275-5 KAPPA/LAMBDA RATIO,S 1.83 0.26-1.6 5 H 2023-04-05 4498-2 COMPLEMENT C4, SERUM 17 MG/DL 12-38 2023-04-05 4485-9 COMPLEMENT C3, SERUM 140 MG/DL 82-167 2023-04-05 49261-2 RHEUMATOID FACTOR (RF) 11.1 IU/ML <14.0 2023-04-05 94012-0 ANTI-CCP AB, IGG/IGA 2 UNITS 0-19 2023-04-05 6457-6 DSDNA CRITHIDIA LUCILIAE IFA N NEGATIVE
--- OUTSIDE RECORDS SUMMARY | 2024-06-10 09:52 | XMS_ITS ---
Laboratory report Created on: April 19, 2024 NUPUR HAWKINS : 1955 Sex: Female Author Name RICKI GALVAN Organization Unknown PROBLEMS Problems List Code Description E78.2 Z83.3 RESULTS Laboratory Orders Date Order Code Test 2023-03-31 [id number] COMP. METABOLIC PANEL (14) 2023-03-31 [id number] LIPID PANEL 2023-03-31 935324 HEMOGLOBIN A1C Laboratory Results Date [facility] Test Value Unit Reference Range Interpre tation 2023-03-31 2345-7 GLUCOSE 86 MG/DL 70-99 2023-03-31 3094-0 BUN 11 MG/DL 8-2023-03-31 2160-0 CREATININE .93 MG/DL 0.57-1.00 2023-03-31 38823-7 EGFR 67 ML/MIN/1.7 3 >59 2023-03-31 3097-3 BUN/CREATININE RATIO 12 -2023-03-31 2951-2 SODIUM 141 MMOL/L 088-501 0013-08-25 2823-3 POTASSIUM 4.5 MMOL/L 3.5-5.2 2023-03-31 2075-0 CHLORIDE 106 MMOL/L 96-106 2023-03-31 2028-9 CARBON DIOXIDE, TOTAL 21 MMOL/L -29 2023-03-31 78191-9 CALCIUM 8.9 MG/DL 8.7-10.3 2023-03-31 2885-2 PROTEIN, TOTAL 7.1 G/DL 6.0-8.5 2023-03-31 1751-7 ALBUMIN 4 G/DL 3.9-4.9 2023-03-31 02436-0 GLOBULIN, TOTAL 3.1 G/DL 1.5-4.5 2023-03-31 1759-0 A/G RATIO 1.3 1.2-2.2 2023-03-31 1975-2 BILIRUBIN, TOTAL .3 MG/DL 0.0-1.2 2023-03-31 6768-6 ALKALINE PHOSPHATASE 71 IU/L 44-121 2023-03-31 1920-8 AST (SGOT) 20 IU/L 0-40 2023-03-31 1742-6 ALT (SGPT) 13 IU/L 0-32 2023-03-31 2093-3 CHOLESTEROL, TOTAL 185 MG/DL 738-829 9821-08-25 2571-8 TRIGLYCERIDES 119 MG/DL 0-149 2023-03-31 2085-9 HDL CHOLESTEROL 57 MG/DL >39 2023-03-31 34901-8 VLDL CHOLESTEROL RAMESH 21 MG/DL 5-40 2023-03-31 37325-5 LDL CHOL CALC ([facility]) 107 MG/DL 0-99 H 2023-03-31 4548-4 HEMOGLOBIN A1C 6.1 % 4.8-5.6 H
--- OUTSIDE RECORDS SUMMARY | 2024-06-10 09:52 | XMS_ITS ---
Laboratory report Created on: April 19, 2024 NUPUR HAWKINS : 1955 Sex: Female Author Organization Unknown PROBLEMS Problems List Code Description RESULTS Laboratory Orders Date Order Code Test 2023-03-27 708449 BCR-ABL1, CML/AL L, PCR, QUANT 2023-03-27 656254 JAK2 MUTATION AN ALYSIS, QUAL Laboratory Results Date LOINC Test Value Unit Reference Range Interpre tation 2023-03-27 72275-2 E13A2 (B2A2) TRANSCRIPT [id number] % 2023-03-27 17908-0 E14A2 (B3A2) TRANSCRIPT C75229 % 2023-03-27 43401-5 E1A2 TRANSCRIPT [id number] % 2023-03-27 INTERPRETATION: NEGA 2023-03-27 14031-2 DIRECTOR REVIEW ASHLEY 2023-03-27 36890-1 PDF IMAGE 2023-03-27 50109-2 JAK2 V617F MUTAT ION DETECTION JAK2N 2023-03-27 02545-7 DIRECTOR REVIEW: ASHLEY
[2024-06-10 11:00] VITALS: PULSE 67; PULSE 74
[2024-06-10] MEDS: ALBUTEROL 0.083% 2.5 MG/3 ML NEB IH (11:00)
--- NOTE | 2024-06-10 12:21 | CT_ITS ---
FINAL REPORT TECHNIQUE: Thin section axial images were obtained from the lung apices to the upper abdomen by computed tomography. Reformatted images were obtained and reviewed. This study was performed with techniques to keep radiation doses al low as reasonably achievable (ALARA). Individualized dose reduction techniques using automated exposure control or adjustment of mA and/or kV according to the patient's size were employed. CLINICAL HISTORY: current smoker 1ppd x28 years COMPARISON: None FINDINGS: CHEST CT LOW DOSE CTDI vol (mGy): 2.9 DLP (mGy-cm): 104.46 There is no axillary adenopathy. There is no mediastinal or hilar mass or adenopathy. The heart is normal in size. There is no pericardial or pleural effusion. There is moderate emphysema and mild pulmonary scarring. Lung window images demonstrate several calcified granulomas. There is a 5 mm nodule in the right middle lobe, best seen on image #57 of series 3. Limited images of the upper abdomen are unremarkable. IMPRESSION: Lung-RADS category 2. Recommend 12 month follow up low dose chest CT. Authenticated and ERN
== END 2024-06-10 23:59 | disposition home or self-care (01) ==
LOC: RT 09:50
PROVIDERS: PCP Family Medicine; Visit Provider Internal Medicine Pulmonary Disease
DX: R06.09 Other forms of dyspnea (principal); F17.210 Nicotine dependence, cigarettes, uncomplicated
CPT/HCPCS: 71271; 94060; 94618; 94640; 94726; 94729; J7613

== ENCOUNTER 2024-10-17 15:07 | Outpatient (POV) | payer MEDICARE, BC, SELFPAY ==
[2024-10-17 15:35] VITALS: BP 124/70; PULSE 65; RESP 16; O2SAT 97; BMI 23.3
--- NOTE | 2024-10-17 15:43 | EXP.PAIN.SOA ---
[facility] Disclaimer: The information contained in this section may have been updated after the patient was seen, as this information can be updated by other users. Medical History COPD mixed type Tobacco abuse counseling Tobacco abuse Lung nodule Smoking greater than 30 pack years Pulmonary emphysema Dyspnea on exertion Arthritis Kidney stone HLD (hyperlipidemia) HTN (hypertension), benign Depression COPD (chronic obstructive pulmonary disease) Surgical History Hx of tonsillectomy History of arthroscopy of both knees Family History Other Hyperlipidemia Social History Smoking Status: Current every day smoker tobacco type: cigarettes packs per day: 1 second hand exposure: No alcohol intake: never substance use type: denies use current occupational status: other Travel in the last 8 weeks: None household members: friend(s) housing: house current occupational exposures/hazards: No caffeine: Yes PM Subjective & Objective Subjective Subjective:: Patient is a pleasant 69-year-old female who presents today for 6-month follow-up. Today she rates her pain a 3 out of 10. She denies any new trauma or injury. She states overall she is still maintaining well from her last injection. Patient did have a lumbar epidural of L4-L5 back in November 2023 that did provide significant relief and has continued to help. Patient denies any other changes. Her Gokul has been reviewed and is appropriate. Review of Systems: General: No recent weight changes, no fever, no sleep disturbances Respiratory: No cough, no shortness of air, no recurring pulmonary infections Cardiovascular/peripheral vascular: No chest pain, no palpitations, no edema, no shortness of breath Gastrointestinal: No new onset incontinence, normal bowel movements reported Genitourinary: No new onset incontinence Musculoskeletal: Low back pain Psychiatric: [Normal mood/affect] Neurological: [Denies weakness in extremities], [denies balance issues] Pain at rest (0-10 scale): 3 Objective Objective:: Physical Exam: General: Alert and oriented x3, no acute distress, pleasant and cooperative Lungs: Respirations even and unlabored, symmetrical chest expansion Eyes: PERRL Musculoskeletal: Flexion and extension of lumbar [spine] somewhat guarded secondary to pain, [antalgic gait noted] Neurological: Speech clear, no gross sensory deficit Has patient had previous pain injection?: No Conservative treatment options previously tried: Home exercise plan Length of treatment: Longer than 12 weeks Meds Home Medications and Allergies Home Medications ?Medication ?Instructions ?Recorded ?Confirmed ?Type paroxetine HCl 40 mg tablet 40 mg PO DAILY Depression 02/28/19 10/17/24 History simvastatin 20 mg tablet 20 mg PO HS cholesterol 03/27/23 10/17/24 History bimatoprost 0.03 % eye drops 1 drp Eye-Both DIRECTED 04/11/24 10/17/24 History nicotine (polacrilex) 2 mg gum 2 mg buccal Q2H PRN nicotine 04/11/24 10/17/24 Rx cravings #396 ea albuterol sulfate 90 mcg/actuation 2 inh inhalation QID PRN shortness 06/14/24 10/17/24 Rx aerosol inhaler of breath or wheezing 30 days #8.5 grams New Prescriptions to Start Prescriptions: Allergies Allergy/AdvReac Type Severity Reaction Status Date / Time penicillin G Allergy Severe Anaphylaxis Verified 06/14/24 11:48 Assessment and Plan *Assessment and plan (1) Degenerative joint disease (DJD) of lumbar spine: Status: Chronic Qualifiers: Spinal osteoarthritis complication: with radiculopathy Qualified Code(s): M47.26 - Other spondylosis with radiculopathy, lumbar region Category: Medical Code(s): M47.816 - Spondylosis without myelopathy or radiculopathy, lumbar region Plan Patient has continued to get significant relief from her lumbar epidural she had in November 2023 and does not require any additional injection therapy at this time. Patient will return to clinic in 6 months for reevaluation of symptoms and plan of care. Patient has been instructed to contact the clinic with any concerns before the next appointment. Dr. Rodríguez has reviewed this note and agrees with this plan of care. This note was dictated using voice recognition software and make contain errors or omissions. All injections are used with Lidocaine, Bupivacaine and Depo Medrol. Occasionally urine drug screen is needed to verify patient's compliance with our office pain contract. This is ordered based off specific treatments related to chronic pain with the potential to abuse certain medications.
== END 2024-10-17 23:59 | disposition home or self-care (01) ==
LOC: SC.PAIN 15:12
PROVIDERS: PCP Family Medicine; Visit Provider Nurse Practitioner Family
DX: M47.26 Other spondylosis with radiculopathy, lumbar region (principal); F17.210 Nicotine dependence, cigarettes, uncomplicated
CPT/HCPCS: 99212; G0463

== ENCOUNTER 2024-11-19 13:54 | Outpatient (CLI) | payer MEDICARE, BC, SELFPAY ==
--- OUTSIDE RECORDS SUMMARY | 2024-11-19 13:58 | XMS_ITS ---
Author Organization Unknown Results OrderDate OrderTestName ResultName ResultDate Value Units Range AbnormalFlag ResultStatus ObservationNotes TestCode ResultCode DateRecorded AccessionNumber DiagnosticSectionCode DiagnosticSectionName Sequence Interpretation 11/27/2023 00:00:00 FLU/COVID [id number]:00:00 NEG R RAVEN Seay 11/27/2023 02:06:17 PM > FLU/COVID 11/27/2023 00:00:00
--- OUTSIDE RECORDS SUMMARY | 2024-11-19 13:59 | XMS_ITS | Data Portability ---
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 Munoz. She stopped her oral iron supplement 2-3 months ago after having a normal H & H. -Obtain CBC, iron study, CMP today for monitoring. -Consider repeat EGD/push enteroscopy if she is anemic again. 2) History of colon polyps: She will be due for repeat colonoscopy 05/2028 3) Chronic constipation: Continue miralax and metamucil once daily. f/u prn - will notify with lab results. [email or web address] Not available 01/29/2024 22:46:34 Plan of Treatment Reminders Order Date Submit Date Provider Last Modified By Organization Details Last Modified Time Details Appointments None recorded. Lab iron + TIBC + ferritin, serum 2023 024 HEIDI [facility], [address], [address], [place], [address], 4 11:12:48 CBC 2023 024 HEIDI [facility], [address], [address], [place], [address], 4 11:12:49 CMP, serum or plasma 2023 024 HEIDI [facility], [address], [address], [place], [address], 4 11:12:48 Referral None recorded. Procedures None recorded. Surgeries None recorded. Imaging LDCT, chest, for lung cancer screening - 1- Did patient participate in a shared decision-ma hua session with the provider? YES2- Is patient age between 50-77 years old? YES3- Did patient smoke at least 20 pack year? YES4- Is patient current smoker or quit smoking within the last 15 years? YES5- Is the patient asymptomati c (no signs or symptoms of lung cancer)? YES 2022 023 [facility] (Centralized Scheduling), [address], [place], [address], 3 14:35:08 Medication Orders Ventolin HFA 90 mcg/actuati on aerosol inhaler 2022 023 [id number], [address], [phone], 3 13:39:36 Symbicort 160 mcg-4.5 mcg/actuati on HFA aerosol inhaler 2022 023 [id number], [address], [phone], 3 13:39:32 Patient TargetsNo targets recorded. Patient Instructions Encounter Date Encounter Id Patient Instructions Last Modified By Organization Details Last Modified Time 10/18/2022 [id number] smoking cessatio n counseling, greater than 3 minutes up to 10 minutes* [email or web address] Not available 10/18/2022 13:39:26 Reason for Referral None Reported. Results Created Date Observation Date Name Description Value Unit Range Abnormal Flag Note LastModifiedBy Organization Detail LastModifiedTime 01/29/20 24 01/30/2024 FE+TI BC+FE R iron bind.cap.(TI BC) 421 ug/dL 250-45 0 Not Available [facility] ([facility]) [address] [facility], [place], [address], 01/30/2024 11:12:48 01/29/20 24 01/30/2024 FE+TI BC+FE R UIBC 342 ug/dL 118-36 9 Not Available [facility] ([facility]) [address] [place], [address], 01/30/2024 11:12:48 01/29/20 24 01/30/2024 FE+TI BC+FE R iron 79 ug/dL 27-139 Not Available [facility] ([facility]) [address] [place], [address], 01/30/2024 11:12:48 01/29/20 24 01/30/2024 FE+TI BC+FE R iron saturation 19 % 15-55 Not Available [facility] ([facility]) [address] [place], [address], 01/30/2024 11:12:48 01/29/20 24 01/30/2024 FE+TI BC+FE R ferritin 20 NG/mL 15-150 Not Available [facility] ([facility]) [address] [place], [address], 01/30/2024 11:12:48 01/29/20 24 01/30/2024 COMP. METAB OLIC PANEL (14) glucose 86 mg/dL 70-99 Not Available [facility] ([facility]) [address] [place], [address], 01/30/2024 11:12:48 01/29/20 24 01/30/2024 COMP. METAB OLIC PANEL (14) BUN 15 mg/dL 8-27 Not Available [facility] ([facility]) [address] [place], [address], 01/30/2024 11:12:48 01/29/20 24 01/30/2024 COMP. METAB OLIC PANEL (14) creatinine 0.93 mg/dL 0.57-1 .00 Not Available [facility] ([facility]) [address] [facility] [place], [address], 01/30/2024 11:12:48 01/29/20 24 01/30/2024 COMP. METAB OLIC PANEL (14) eGFR 67 mL/mi n/1.7 3 >59 Not Available [facility] ([facility]) [address] [facility] [place], [address], 01/30/2024 11:12:48 01/29/20 24 01/30/2024 COMP. METAB OLIC PANEL (14) BUN/creatini ne ratio 16 12-28 Not Available [facility] ([facility]) [address] [facility] [place], [address], 01/30/2024 11:12:48 01/29/20 24 01/30/2024 COMP. METAB OLIC PANEL (14) sodium 140 mmol/ L 134-14 4 Not Available [facility] ([facility]) [address] [facility] [place], [address], 01/30/2024 11:12:48 01/29/20 24 01/30/2024 COMP. METAB OLIC PANEL (14) potassium 4.9 mmol/ L 3.5-5. 2 Not Available [facility] ([facility]) [address] [facility] [place], [address], 01/30/2024 11:12:48 01/29/20 24 01/30/2024 COMP. METAB OLIC PANEL (14) chloride 104 mmol/ L 96-106 Not Available [facility] ([facility]) [address] [facility] [place], [address], 01/30/2024 11:12:48 01/29/20 24 01/30/2024 COMP. METAB OLIC PANEL (14) carbon dioxide, total 24 mmol/ L 20-29 Not Available [facility] ([facility]) [address] [facility] [place], [address], 01/30/2024 11:12:48 01/29/20 24 01/30/2024 COMP. METAB OLIC PANEL (14) calcium 9.6 mg/dL 8.7-10 .3 Not Available [facility] ([facility]) [address], [place], [address], 01/30/2024 11:12:48 01/29/20 24 01/30/2024 COMP. METAB OLIC PANEL (14) protein, total 6.8 g/dL 6.0-8. 5 Not Available [facility] ([facility]) [address] [place], [address], 01/30/2024 11:12:48 01/29/20 24 01/30/2024 COMP. METAB OLIC PANEL (14) albumin 4.1 g/dL 3.9-4. 9 Not Available [facility] ([facility]) [address], [place], [address], 01/30/2024 11:12:48 01/29/20 24 01/30/2024 COMP. METAB OLIC PANEL (14) globulin, total 2.7 g/dL 1.5-4. 5 Not Available [facility] ([facility]) [address] [place], [address], 01/30/2024 11:12:48 01/29/20 24 01/30/2024 COMP. METAB OLIC PANEL (14) bilirubin, total 0.2 mg/dL 0.0-1. 2 Not Available [facility] ([facility]) [address] [place], [address], 01/30/2024 11:12:48 01/29/20 24 01/30/2024 COMP. METAB OLIC PANEL (14) alkaline phosphatase 80 IU/L 44-121 Not Available [facility] [address] [facility] [place], [address], 01/30/2024 11:12:48 01/29/20 24 01/30/2024 COMP. METAB OLIC PANEL (14) AST (SGOT) 20 IU/L 0-40 Not Available [facility] ([facility]) [address] [facility] [place], [address], 01/30/2024 11:12:48 01/29/20 24 01/30/2024 COMP. METAB OLIC PANEL (14) ALT (SGPT) 20 IU/L 0-32 Not Available [facility] ([facility]) [address] [facility], [place], [address], 01/30/2024 11:12:48 01/29/20 24 01/30/2024 CBC, PLATE LET, NO DIFFE RENTI AL WBC 11.7 x10e3 /uL 3.4-10 .8 above high normal Not Available [facility] ([facility]) [address] [facility], [place], [address], 01/30/2024 11:12:49 01/29/20 24 01/30/2024 CBC, PLATE LET, NO DIFFE RENTI AL RBC 4.69 x10e6 /uL 3.77-5 .28 Not Available [facility] ([facility]) [address] [facility], [place], [address], 01/30/2024 11:12:49 01/29/2001/30/2024 CBC, PLATE LET, NO DIFFE RENTI AL hemoglobin 13.7 g/dL 11.1-1 5.9 Not Available [facility] ([facility]) [address] [facility], [place], [address], 01/30/2024 11:12:49 01/29/2001/30/2024 CBC, PLATE LET, NO DIFFE RENTI AL hematocrit 43.3 % 34.0-4 6.6 Not Available [facility] ([facility]) [address] [place], [address], 01/30/2024 11:12:49 01/29/20 24 01/30/2024 CBC, PLATE LET, NO DIFFE RENTI AL MCV 92 fL 79-97 Not Available [facility] ([facility]) [address] [facility], [place], [address], 01/30/2024 11:12:49 01/29/20 24 01/30/2024 CBC, PLATE LET, NO DIFFE RENTI AL MCH 29.2 pg 26.6-3 3.0 Not Available [facility] ([facility]) [address] [facility], [place], [address], 01/30/2024 11:12:49 01/29/20 24 01/30/2024 CBC, PLATE LET, NO DIFFE RENTI AL MCHC 31.6 g/dL 31.5-3 5.7 Not Available [facility] ([facility]) [address] [facility], [place], [address], 01/30/2024 11:12:49 01/29/20 24 01/30/2024 CBC, PLATE LET, NO DIFFE RENTI AL RDW 14.0 % 11.7-1 5.4 Not Available [facility] ([facility]) [address] [facility], [place], [address], 01/30/2024 11:12:49 01/29/20 24 01/30/2024 CBC, PLATE LET, NO DIFFE RENTI AL platelets 366 x10e3 /uL 150-45 0 Not Available [facility] ([facility]) [address] [facility], [place], [address], 01/30/2024 11:12:49 01/29/20 24 01/30/2024 CBC, PLATE LET, NO DIFFE RENTI AL NRBC SURGICAL ATTENDANT Not Available [facility] ([facility]) [address] [facility], [place], [address], 01/30/2024 11:12:49 11/25/19 23 11/24/2022 LDCT, chest , for lung cance r scree karon [facility] [address] [place] [address] Phone: Fax: Name: HIEU SANTA SA Exam Date: : 954 Age 67 Gender : F Access ion: [id number] Physic mendy: RAMON MIRANDA Facili ty: [facility] Facili ty HSV: Outpat ient Exam: CT LOW DOSE LUNG SCREEN ING LOW DOSE SCREEN ING CT SCAN OF THE CHEST WITHOU T CONTRA ST COMPAR GREG: 022 HISTOR Y: Curren t smoker with a 40-pac k-year histor y. PROCED URE: Axial images were obtain ed from the lung apex to the mid abdome n by comput ed tomogr aphy in a low dose screen ing protoc ol. This study was perfor med with techni ques to keep radiat ion doses as low as reason ably achiev able, (ALARA ). CTDI: 1.10 mGy. DLP: 44.59 mGy/cm . FINDIN GS: CHEST: There is no axilla ry adenop athy. There is no hilar or medias tinal adenop athy. There is eviden ce of prior calcif ied granul omatou s diseas e. There is athero sclero sis. Heart size is normal . There is no perica rdial or pleura l effusi on. Limite d images of the upper abdome n are unrema rkable . No suspic ious infilt rate or nodule s identi fied. Mild emphys ematou s change s are seen throug hout the lungs. No acute osseou s abnorm ality is identi fied. IMPRES JEREMY: Lung Rads catego ry 1. Contin ued annual low dose screen ing of the chest recomm ended. Images review ed, interp reted and dictat ed by Dr. Gomez. Transc ribed by Julian Barber PA-C Dictat ed By: MOODY GOMEZ Transc ribed By: Moody Gomez Transc ribed On: 023 2:22 PM Electr onical ly signed by: MOODY GOMEZ 023 Thank you for referr HIEU Cordova SA to [facility]. Legall y authen ticate d by POPE MOODY Mooney 11-24 14:22: 38 CC'ed Logic: Orderi ng Provid er: RUBEN VERA Attend ing Provid er: RUBEN VERA Referr ing Provid er: RUBEN VERA Admitt ing Provid er: [facility]UBEN [email or web address] [address], [place], [address], 11/24/2022 14:38:54 Result Notes None recorded. Problems Name Problem SNOMED Code Status Onset Date Resolution Date Notes Provider Name and Address Organization Details Recorded Time Chronic obstructiv e pulmonary disease 90661537 Active 2022 Ramon Miranda MD [address], [place], [address] , [place] - [facility] [place] [facility] [place] 3 13:35:27 Dyspnea on exertion 10764580 Active 2022 Ramon Miranda MD [address], [place], [address] , [place] - [facility] [place] [facility] [place] 3 13:35:40 Tobacco dependence caused by cigarettes 4967622460552 9107 Active 2022 Ramon Miranda MD [address], [place], [address] , [place] - [facility] [place] [facility] [place] 3 13:35:48 Angiodyspl jaiden of gastrointe stinal tract 5872415138699 07 Active 2023 Carlos Manuel Black PA-C [address], [place], [address] , [place] - [facility] [place] [facility] [place] 4 13:57:50 Chronic idiopathic constipati on 06219549 Active 2023 Carlos Manuel Black PA-C [address], [place], [address] , [place] - [facility] [place] [facility] [place] 4 14:01:48 Problem Notes None recorded. Procedures Surgical History Date Name Laterality Status Provider Name and Address Organization Details Recorded Time 4 Procedure Note completed Vivienne FISH [facility] & [place] 01/29/2024 14:14:43 2 completed Esperanza FISH [facility] & [place] 01/29/2024 14:16:34 2 Date of Last Pap Smear completed Esperanza FISH [facility] & [place] 01/29/2024 14:16:34 0 Date of Last Colonoscopy completed Esperanza FISH [facility] & [place] 01/29/2024 14:16:34 0 Most Recent Bone Density completed Esperanza FISH [facility] & [place] 01/29/2024 14:16:34 Imaging Results Imaging Date Name Status LastModified by Organiz ation Details LastModified Time 11/24/2022 LDCT, chest, for lung cancer screening completed [facility] [address] [facility], [place], [address], 11/24/2022 14:38:54 Procedure Notes None recorded. Medical Equipment None Reported. Allergies Allergen ID Allergen Name Allergen Category Reaction Reaction Severity Criticality Documentation Date Start Date Code Code System Note Provider Name and Address Organization Details Recorded Time 248013 penicilli n G Not available anaphylax is rash swelling moderate severe mild Not available 01/29/2024 7980 RxNorm [facility]N [facility] [place] 4 14:16:33 01606 Product containin g penicilli n (product) medicatio n Not available Not available Not available 10/18/2022 00750 8001 SNOMED Una KEENAN Ramesh [facility] & [place] 3 13:09:03 Medications Name Sig Start Date Stop Date Status Note LastModified by Organization Details LastModified Time triamcinolo ne acetonide 0.5 % topical cream APPLY TOPICALLY TO THE AFFECTED AREA TWICE DAILY FOR 7 DAYS 10/18 completed Not Available Not Available Not Available azithromyci n 250 mg tablet 10/18 completed Not Available Not Available Not Available meloxicam 15 mg tablet TAKE 1 TABLET BY MOUTH DAILY active Not Available Not Available No t Available sucralfate 1 gram tablet TAKE 1 TABLET BY MOUTH BEFORE MEALS AND AT BEDTIME active Not Available Not Available No t Available ondansetron HCl 4 mg tablet TAKE 1 TABLET BY MOUTH EVERY 8 HOURS NEEDED FOR NAUSEA 10/18 completed Not Available Not Available Not Available prednisone 20 mg tablet TAKE 1 TABLET BY MOUTH TWICE DAILY WITH FOOD OR MILK FOR 5 DAYS 10/18 completed Not Available Not Available Not Available bimatoprost 0.03 % eye drops APPLY 1 APPLICATI ON ALONG UPPER EYELID MARGIN AT BASE OF EYELASHES ONCE A DAY active Not Available Not Available No t Available sulfamethox azole 800 mg-trimetho prim 160 mg tablet TAKE 1 TABLET BY MOUTH TWICE DAILY FOR 7 DAYS 10/18 completed Not Available Not Available Not Available triamcinolo ne acetonide 0.1 % topical cream APPLY TOPICALLY TO THE AFFECTED AREA TWICE DAILY NEEDED active Not Available Not Available No t Available famotidine 20 mg tablet TAKE 1 TABLET BY MOUTH TWICE DAILY active Not Available Not Available No t Available hydrocodone 7.5 mg-acetamin ophen 325 mg tablet TAKE 1 TO 2 TABLETS BY MOUTH EVERY 4 TO 6 HOURS NEEDED FOR PAIN 10/18 completed Not Available Not Available Not Available simvastatin 20 mg tablet TAKE 1 TABLET BY MOUTH EVERY EVENING active Not Available Not Available No t Available neomycin-po lymyxin-dex ameth 3.5 mg/mL-10,00 0 unit/mL-0.1 % eye drops SHAKE LIQUID AND INSTILL 1 DROP IN BOTH EYES THREE TIMES DAILY FOR 7 DAYS 10/18 completed Not Available Not Available Not Available nicotine 21 mg/24 hr daily transdermal patch APPLY 1 PATCH TOPICALLY TO THE SKIN EVERY DAY 10/18 completed Not Available Not Available Not Available mupirocin 2 % topical ointment APPLY TOPICALLY IN EACH NOSTRIL TWICE DAILY. START 5 DAYS BEFORE SURGERY 10/18 completed Not Available Not Available Not Available albuterol sulfate HFA 90 mcg/actuati on aerosol inhaler INHALE 2 PUFFS BY MOUTH EVERY 4 HOURS NEEDED active Not Available Not Available No t Available paroxetine 40 mg tablet TAKE 1 TABLET BY MOUTH EVERY DAY active Not Available Not Available No t Available diazepam 5 mg tablet TAKE 1 TABLET BY MOUTH EVERY 8 HOURS NEEDED FOR MUSCLE PAIN 10/18 completed Not Available Not Available Not Available budesonide- formoterol HFA 160 mcg-4.5 mcg/actuati on aerosol inhaler INHALE 2 PUFFS BY MOUTH TWICE DAILY active Not Available Not Available No t Available cholecalcif gregor (vitamin D3) 1,250 mcg (50,000 unit) capsule TAKE 1 CAPSULE BY MOUTH ONCE A WEEK ON SAME DAY EACH WEEK active Not Available Not Available No t Available sodium,pota ssium,mag sulfates 17.5 gram-3.13 gram-1.6 gram oral soln MIX AND DRINK DIRECTED active Not Available Not Available No t Available BinaxNOW COVID-19 Ag Self Test kit TEST DIRECTED TODAY 10/18 completed Not Available Not Available Not Available Accrufer 30 mg capsule TAKE 1 CAPSULE BY MOUTH TWICE DAILY DIRECTED FOR 30 DAYS. active Not Available Not Available No t Available Lagevrio 200 mg capsule (EUA) TAKE 4 CAPSULES BY MOUTH EVERY 12 HOURS FOR 5 DAYS 10/18 completed Not Available Not Available Not Available Vitals Date Recorded Body weight Body mass index (BMI) Body height Body temperature Oxygen saturation Oxygen saturation in Arterial blood by Pulse oximetry Heart rate Systolic blood pressure Diastolic blood pressure Provider Name and Address Organization Details Last Updated DateTime 3 84778.2 2 g 24.9 kg/m2 167.64 cm 97.3 [degF] 100 % 100 % 62 /min 120 mm[Hg] 77 mm[Hg] Una Urias [facility] & [place] 3 13:12:55 Date Recorded Body weight Body mass index (BMI) Body height Body temperature Heart rate Heart rate Oxygen saturation Oxygen saturation in Arterial blood by Pulse oximetry Systolic blood pressure Diastolic blood pressure Provider Name and Address Organization Details Last Updated DateTime 4 94736.8 8 g 25.5 kg/m2 167.64 cm 97.9 [degF] 68 /min 65 /min 99 % 99 % 113 mm[Hg] 70 mm[Hg] Vivienne Medellin [facility] & [place] 13:30:10 Social History Question Answer Notes LastModified by Organizat ion Details LastModified Time Tobacco Smoking Status Current Every Day Smoker KEENAN Mitchell - [place] [facility] [place] 10/18/2022 13:10:53 Do You Have An Advance Directive? Yes Information not available 01/29/2024 What Is Your Level Of Alcohol Consumption? Occasional [email or web address] Information not available 10/18/2022 Are You Blind Or Do You Have Difficulty Seeing? No Information not available 01/29/2024 What Is Your Level Of Caffeine Consumption? Heavy [email or web address] Information not available 10/18/2022 What Was The Date Of Your Most Recent Tobacco Screening? 10/15/2022 Information not available 01/29/2024 What Is Your Current Pack Years? [email or web address] ars [email or web address] Information not available 10/18/2022 At What Age Did You Start Smoking Tobacco? 34 [email or web address] Information not available 10/18/2022 Are You Passively Exposed To Smoke? No Information not available 01/29/2024 Do You Or Have You Ever Used Smokeless Tobacco? Never Used Smokeless Tobacco Information not available 01/29/2024 How Much Tobacco Do You Smoke? 0.5 PPD [email or web address] Information not available 10/18/2022 Do You Feel Stressed (tense, Restless, Nervous, Or Anxious, Or Unable To Sleep At Night)? [id number] Information not available 01/29/2024 Do You Use Any Illicit Or Recreational Drugs? No [email or web address] Information not available 10/18/2022 How Many Years Have You Smoked Tobacco? 35 Information not available 01/29/2024 Sex: Female Functional Status Question Answer Note LastModified by Organizat ion Details LastModified Time What is your exercise level? Occasional Information not available 01/29/2024 Mental Status None recorded. Family History Relationship Description Onset Age of this Age Resolved Age Notes LastModified by Organization Details LastModified Time Mother Hypercholest erolemia pt. added direct ly (10/15) [email or web address] Not available 10/15/2022 15:28:55 Father Disorder of thyroid gland pt. added direct ly (10/15) [email or web address]-13 Not available 10/15/2022 15:29:18 Medical History Condition Response Arthritis Y High Cholesterol Y Back Problems Y Gynecological History Statement/Question Response Abnormal Pap N 04/13/2022 Date of Last Colonoscopy 09/07/2019 Most Recent Bone Density 08/07/2019 Sexually Active? N Menses Monthly N Date of Last Pap Smear 08/07/2021 Age at Menarche 58 Obstetrics History GPAL:G 0 P 0 0 0 0 Past Encounters Encounter ID Performer Location Encounter Start Date Encounter Closed Date Diagnosis/Indication Diagnosis SNOMED-CT Code Diagnosis ICD10 Code Diagnosis Note [id number] Ramon Miranda MD [facility] [address] [facility] e [address] [place] [address] 10/18/2022 12:59:43 10/18/2022 13:26:58 Chronic obstructive pulmonary disease 69902653 J44.9 Will start patient on Symbicort to use regularly. Will arrange for the patient to have Leila to use on a p.r.n. basis. Patient instructed to call if there is any new symptoms. Dyspnea on exertion 6084 5006 R06.09 Patient recommende d to exercise as tolerated and will start her on Leila to use on a p.r.n. basis. Tobacco de pendence caused by cigarettes 1212418224 9975871 F17.210 Patient counseled extensivel y to quit smoking and will continue follow this up. Screening for malignant neoplasm of respiratory tract 732062638 Z12.2 The patient has participat ed in a shared decision making session during which potential risk and benefits of LDCT lung cancer screening were discussed. The patient was informed of the importance of adherence to annual screening, impact of comorbidit ies, the ability/wi llingness to undergo diagnosis and treatment. The patient was informed of the importance of smoking cessation and/or maintainin g smoking abstinence , including the offer of Medicare- over tobacco cessation counseling services, if applicable . The patient is asymptomat ic (no symptoms such as fever, chest pain, new shortness of breath, new or changing cough, coughing up blood, or unexplaine d significan t weight loss). [id number] Carlos Manuel Black PA-C [facility] [address] [facility] [address] [place] [address] 01/29/2024 13:07:24 01/29/2024 14:14:52 Angiodysplasia of gastrointestinal tract 1441750273 37149 K55.20 Chronic id iopathic constipation 28475536 K59.04 History of polyp of colon 560405915 Z86.010 Health Concerns Section Related Observation LastModified by Organization Detai ls LastModified Time None Recorded Concern Status LastModified by Organization Details LastModified Time None Recorded Advance Directives Directive Y: Payers Encounter Date Sequence Insurance Name Policy Number Policy Hernandez Covered Member ID Hernandez Member ID Guarantor Name 10/18/2022 1 [place]ARE[place] Bianca Gutierrez [id number] Bianca Gutierrez 10/18/2022 2 [employer] 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 Patient states that she continues to smoke about half pack per day and discontinued the use of her inhalers. She denies shortness of breath at rest but had dyspnea on exertion grade 1 on M MRC dyspnea scale. She denies fever, chills or diaphoresis. No chest pain, angina or palpitation. No PND or orthopnea. Patient denies wheezing or hemoptysis. Patient denies significant change in her weight or appetite. Ramon Miranda MD [address] [facility], [place], [address], [facility] [place] [facility] [place] 10/18/2022 13:40:00 4 text/html Ms. 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 She underwent EGD with APC performed on numerous gastric and duodenal angioectasias. Gastritis was noted at that time as well with no evidence of H. pylori on biopsy. She was prescribed sucralfate and oral iron supplementation at that time. She stopped the iron supplement 2-3 months ago after she found that her hgb was 14.5 while donating blood to the [facility]. She reports feeling well currently. She has chronic constipation for which she is taking Metamucil and miralax once daily. This manages her symptoms well. 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 Carlos Manuel Black PA-C [address], [place], [address], [facility] [place] [facility] [place] 01/29/2024 22:47:12 OBGyn Episode No OBEpisode recorded.
--- OUTSIDE RECORDS SUMMARY | 2024-11-19 13:59 | XMS_ITS | Continuity of Care Document ---
Author Organization [facility], RHEUMATOLOGY SB Address [address] [place] [address] Care Team Providers Care Second Steward Name Role Phone ASH CHEL Food Service Agent ALEX ADRIAN Caustic Cresylate Shift Superintendent RICKI GALVAN Primary Care Provider Assessment No assessment recorded. Plan of Treatment Reminders Order Date Submit Date Provider Last Modified By Organization Details Last Modified Time Details Appointments None record ed. Lab None record ed. Referral None record ed. Procedures None record ed. Surgeries None record ed. Imaging None record ed. Medication Orders None record ed. Patient TargetsNo targets recorded. Patient Instructions Encounter Date Encounter Id Patient Instructions Last Modified By Organization Details Last Modified Time 10/22/2024 [id number] No scheduled follow-up with rheumatology is needed Not available 10/22/2024 16:08:45 Reason for Referral None Reported. Procedures Surgical History Date Name Laterality Status Provider Name and Address Organization Details Recorded Time 10/11/19 25 DAK - Cryo AK completed [facility] 10/10/2024 14:14:19 09/12/19 25 Micro-Needling completed [facility] 09/12/2024 16:04:50 02/27/20 24 Micro-Needling completed [facility] 02/27/2024 14:09:46 01/09/20 24 Micro-Needling completed [facility] 01/09/2024 14:03:41 12/05/19 24 Micro-Needling completed [facility] 12/05/2023 14:24:13 11/13/19 24 [facility] 13:40:06 11/13/19 24 IPL Treatment - additional locations [facility]/13[facility]23 13:40:43 10/16/19 24 IPL Treatment [facility]/16/[facility]23 14:12:51 10/16/19 24 IPL Treatment - additional locations [facility]/16/[facility]23 14:13:59 dental surgical procedure completed ALEX ADRIAN MD [address] [place] [address], [phone], [facility] 10/22/2024 13:18:33 excision of tonsil, 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 completed ALEX ADRIAN MD [address] [place] [address], [phone], [facility] 10/22/2024 13:18:38 tonsillectomy completed ALEX ADRIAN MD [address] [place] [address], [phone], [facility] 10/22/2024 13:18:44 procedure on hand completed ALEX ADRIAN MD [address] [place] [address], [address] [place] [address], [facility] 10/22/2024 13:19:03 lithotripsy completed ALEX ADRIAN MD [address] [place] [address], [phone], [facility] 10/22/2024 13:19:08 ligation of [place] [address] [place] [address], [phone], [facility] 10/22/2024 13:19:19 Imaging Results None recorded. Procedure Notes None recorded. Medical Equipment None Reported. Allergies Allergen ID Allergen Name Allergen Category Reaction Reaction Severity Criticality Documentation Date Start Date Code Code System Note Provider Name and Address Organization Details Recorded Time 912058 Product containin g penicilli n (product) medicatio n Not available Not available Not available 10/10/2024 57337 8001 SNOMED [facility] Medications Name Sig Start Date Stop Date Status Note LastModified by Organization Details LastModified Time paroxetine 10 mg tablet active Not Available Not Available No t Available clobetasol 0.05 % topical ointment APPLY A THIN LAYER TO THE AFFECTED AREA(S) BY TOPICAL ROUTE 2 TIMES PER DAY FOR 2 WEEKS THEN 2-3 TIMES A WEEK WITH FLARES 2024 active Not Available Not Available Not Avai lable sucralfate active dc Not Available Not Av ailable Not Available simvastatin active Not Available Not A vailable Not Available Vitals Date Recorded Body weight Respiratory rate Oxygen saturation Oxygen saturation in Arterial blood by Pulse oximetry Heart rate Systolic blood pressure Diastolic blood pressure Provider Name and Address Organization Details Last Updated DateTime 5 36220.5 9 g 16 /min 97 % 97 % 68 /min 106 mm[Hg] 86 mm[Hg] [facility] 13:10:26 Social History Question Answer Notes LastModified by Organizat ion Details LastModified Time Tobacco Smoking Status Current Every [facility] 09/21/2023 12:55:50 What Is Your Level Of Alcohol Consumption? None [email or web address] Information not available 09/21/2023 Sunscreen Use? Yes Informatio n not available 07/10/2023 Tanning Bed Use No Informati on not available 07/10/2023 What Was The Date Of Your Most Recent Tobacco Screening? 10/22/2024 [email or web address] Information not available 10/22/2024 Sex: Unknown Functional Status None recorded. Mental Status None recorded. Family History Relationship Description Onset Age of this Age Resolved Age Notes LastModified by Organization Details LastModified Time Unspecified Relation Malignant neoplastic disease [email or web address] Not available 2024 13:16:57 Brother Celiac disease [email or web address] Not available 2024 13:17:24 Father Arthritis Not available 10/22/2024 13:17:37 Father Heart disease [email or web address] Not available 2024 13:17:50 Father Disorder of thyroid gland [email or web address] Not available 2024 13:18:06 Medical History No medical history recorded. Gynecological HistoryNo gynecological history recorded. Obstetrics History GPAL:G 0 P 0 0 0 0 Past Encounters Encounter ID Performer Location Encounter Start Date Encounter Closed Date Diagnosis/Indication Diagnosis SNOMED-CT Code Diagnosis ICD10 Code Diagnosis Note [id number] SUKUMRA MAC [place] [address] [place] [address] 10/10/2024 13:42:18 10/10/2024 14:21:31 Multiple benign melanocytic nevi 661323213 D22.5 L81.4 D18.01 L82.1 The benign nature of keratoses and lentigines was discussed with the patient.Sandoval n protection with SPF 30 broad spectrum sunscreen and protective gear discussed. Look for physical jethro sunscreens with at least SPF 30 containing zinc oxide or titanium dioxide as active ingredient .Recommend monthly self examinatio ns and yearly full skin examinatio n with a dermatolog y provider.R ecommend yearly eye exam.Recom mend OTC Vitamin D supplement .Patient instructed to call if any suspicious lesions are noted. Actinic keratosis L57.0 The nature of the diagnosis was explained. Pre-cancer ous.Will treat with LN2.F/u if treated lesions persist. Lichen sim plex chronicus [id number] L28.0 The nature of the diagnosis was explained. Pt ok to use Clobetasol ointment bid x 2 weeks. SE reviewed. LT use discussed. [id number] ALEX ADRIAN MD RHEUMATOL OGY [address] [place] [address] 10/22/2024 12:46:41 10/23/2024 04:37:26 Anti-nuclear factor detected [id number] R76.8 DENNISE +1: 160. More specific serologies were negative. I do not appreciate any clinical signs or symptoms to suggest underlying rheumatolo gic condition. Reassuranc e provided. We discussed nature of DENNISE testing at length. ACR handout on positive DENNISE given.This can be seen in the setting of family history of thyroid disease, autoimmune disease (celiac disease in her brother)No further rheumatolo gic workup is warranted. I have advised patient on symptoms that would warrant reevaluati on. Degenerati ve joint disease involving multiple joints M15.9 She has symptoms of osteoarthr itis affecting multiple areas. Reassuranc e provided that I do not appreciate signs or symptoms to suggest underlying inflammato ry arthritis. 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 Two years ago, she had hives, itchy rashes around her neck, shoulders, chest. She has seen Allergy,Thinks that DENNISE was positive at the time.Was referred to Hematology after she saw Allergy. Found to have significant anemia. Got iron supplementation. Had EGD/colonoscopy that showed bleeding GI ulcers. Rashes, hives improved after anemia resolved. Follows with Dermatology. Denies recurrent oral/nasal ulcers, dry eyes, dry mouth, Raynaud's, photosensitivity.S he has osteoarthritis. Has had right CMC arthroplasty. Has DDD in back. Shoulders, wrist, knees, hands are affected. Occasionally takes Aleve as needed.No history of recurrent fevers.No history of DVT/PE.No history of miscarriages.No history of thyroid disease. There is family history of thyroid disease in dad.There is family history of celiac disease in her brother.Up to date on mammogram.No history of recurrent infections.Has had kidney stones before.Denies blood in urine or stool. ALEX ADRIAN MD [address] [place], [address], [facility] 10/22/2024 16:08:58 OBGyn Episode No OBEpisode recorded.
--- OUTSIDE RECORDS SUMMARY | 2024-11-19 13:59 | XMS_ITS | Continuity of Care Document ---
Author Organization [facility] GREGORY Jordan LAUREL FORK Address [address] [place] [address] Care Team Providers Care Loader Operator/Ground Leader Name Role Phone SVETLANAAPRILCHEL Can Tester ALEX ADRIAN Loom Operator Apprentice RICKI GALVAN Primary Care Provider [phone] Assessment No assessment recorded. Plan of Treatment Reminders Order Date Submit Date Provider Last Modified By Organization Details Last Modified Time Details Appointments None record ed. Lab None record ed. Referral None record ed. Procedures None record ed. Surgeries None record ed. Imaging None record ed. Medication Orders None record ed. Patient TargetsNo targets recorded. Patient InstructionsNo instructions recorded. Reason for Referral None Reported. Procedures Surgical History Date Name Laterality Status Provider Name and Address Organization Details Recorded Time 10/11/19 25 DAK - Cryo AK completed Brian Tobin [facility] 10/10/2024 14:14:19 09/12/19 [facility] 16:04:50 02/27/20 24 [facility]/27[facility] 14:09:46 01/09/20 24 [facility] 01/09/[facility]24 14:03:41 12/05/19 24 [facility] 12/05/2023 14:24:13 11/13/19 24 IPL Treatment completed Portia Win [facility] 11/13/2023 13:40:06 11/13/19 24 IPL Treatment - additional locations [facility] 11/13/2023 13:40:43 10/16/19 24 [facility]PL Treatment [facility] 10/16/2023 14:12:51 10/16/19 24 IPL Treatment - additional locations [facility] 10/16/2023 14:13:59 dental surgical procedure completed ALEX ADRIAN MD [address] [place] [address], [phone], [facility] 10/22/2024 13:18:33 excision of tonsil, 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 completed ALEX ADRIAN MD [address] [place] [address], [address] [place] [address], [facility] 10/22/2024 13:18:38 tonsillectomy completed ALEX ADRIAN MD [address] [place] [address], [address] [place] [address], [facility] 10/22/2024 13:18:44 procedure on hand completed ALEX ADRIAN MD [address] [place] [address], [address] [place] [address], [facility] 10/22/2024 13:19:03 lithotripsy completed ALEX ADRIAN MD [address] [place] [address], [address] [place] [address], [facility] 10/22/2024 13:19:08 ligation of fallopian tube completed ALEX ADRIAN MD [address] [place] [address], [address] [place] [address], [facility] 10/22/2024 13:19:19 Imaging Results None recorded. Procedure Notes None recorded. Medical Equipment None Reported. Allergies Allergen ID Allergen Name Allergen Category Reaction Reaction Severity Criticality Documentation Date Start Date Code Code System Note Provider Name and Address Organization Details Recorded Time 964120 Product containin g penicilli n (product) medicatio n Not available Not available Not available 10/10/2024 43938 8001 SNOMED [facility] 13:53:06 Medications Name Sig Start Date [...] Available Not A vailable Not Available Vitals None Recorded Social History Question Answer Notes LastModified by Organizat ion Details LastModified Time Tobacco Smoking Status Current Every Day Smoker Sera Leung [facility] 09/21/2023 12:55:50 What Is Your Level Of Alcohol Consumption? None [email or web address] Information not available 09/21/2023 Sunscreen Use? Yes Informatio n not available 07/10/2023 Tanning Bed Use No Informati on not available 07/10/2023 What Was The Date Of Your Most Recent Tobacco Screening? 10/22/2024 [email or web address] Information not available 10/22/2024 Sex: Unknown Functional Status None recorded. Mental Status None recorded. Family History Relationship Description Onset Age of this Age Resolved Age Notes LastModified by Organization Details LastModified Time Unspecified Relation Malignant neoplastic disease [email or web address] Not available 2024 13:16:57 Brother Celiac disease [email or web address] Not available 2024 13:17:24 Father Arthritis [email or web address] Not available 10/22/2024 13:17:37 Father Heart disease [email or web address] Not available 2024 13:17:50 Father Disorder of thyroid gland [email or web address] Not available 2024 13:18:06 Medical History No medical history recorded. Gynecological HistoryNo gynecological history recorded. Obstetrics History GPAL:G 0 P 0 0 0 0 Past Encounters Encounter ID Performer Location Encounter Start Date Encounter Closed Date Diagnosis/Indication Diagnosis SNOMED-CT Code Diagnosis ICD10 Code Diagnosis Note [id number] SUKUMAR MAC [place] [address] [place] [address] 10/10/2024 13:42:18 10/10/2024 14:21:31 Multiple benign melanocytic nevi 626104510 D22.5 L81.4 D18.01 L82.1 The benign nature [...] treated lesions persist. Lichen sim plex chronicus 12209968 L28.0 The nature of the diagnosis was explained. Pt ok to use Clobetasol ointment bid x 2 weeks. SE reviewed. LT use discussed. [id number] Portia Walden [place] [address] [place] [address] 09/12/2024 14:52:39 09/12/2024 16:00:07 Fine wrinkles on face 527273427 R23.4 Health Concerns Section Related Observation LastModified by Organization Detai ls LastModified Time None Recorded Concern Status LastModified by Organization Details LastModified Time None Recorded Payers Encounter Date Sequence Insurance Name Policy Number Policy Hernandez Covered Member ID Hernandez Member ID Guarantor Name 10/10/2024 1 [place] Bianca Gutierrez [id number] Bianca Gutierrez 10/10/2024 2 [place] [id number] Bianca Gutierrez [id number] Bianca Gutierrez Notes Date Note Type Note Provider Name and Address Organization Details Recorded Time 10/10/2024 text/html [email or web address] hxreports: no concerns SUKUMAR MAC [address] [place], [address], [facility] 10/10/2024 17:13:35 OBGyn Episode No OBEpisode recorded.
--- NOTE | 2024-11-19 14:06 | XR_ITS ---
FINAL REPORT CLINICAL HISTORY: cough, dx with covid FINDINGS: 2 views of the chest were obtained . The heart is normal in size. The mediastinum is within normal limits. There is underlying emphysema. The lungs are otherwise clear. There is no pneumothorax. Osseous structures are unremarkable. IMPRESSION: No acute cardiopulmonary process. Reviewed, Interpreted and Dictated by Tiffany Tony MD Transcribed by Camryn Martinez Authenticated and . [facility]
--- NOTE | 2024-11-19 14:07 | XR_ITS ---
FINAL REPORT CLINICAL HISTORY: Rt shoulder PAIN, nki COMPARISON: 01/15/2024 FINDINGS: 3 views of the right shoulder were obtained. There is no fracture or dislocation. There is mild acromioclavicular joint degenerative disease, unchanged from the prior exam. There is no acute soft tissue abnormality. IMPRESSION: Stable degenerative changes without acute osseous abnormality of the right shoulder. Reviewed, Interpreted and Dictated by Tiffany Tony MD Transcribed by Helena Martinez Authenticated and . [facility]
== END 2024-11-19 23:59 | disposition home or self-care (01) ==
PROVIDERS: PCP Nurse Practitioner; Visit Provider Nurse Practitioner
DX: M25.511 Pain in right shoulder (principal); R05.9 Cough, unspecified
CPT/HCPCS: 71046; 73030

== ENCOUNTER 2025-01-02 13:46 | Outpatient (RCR) | payer MEDICARE, BC, SELFPAY | END 2025-01-02 23:59 | disposition home or self-care (01) | LOC: OT 13:46 | PROVIDERS: Visit Provider Nurse Practitioner | DX: G56.90 Unspecified mononeuropathy of unspecified upper limb (principal) | CPT/HCPCS: 97166; 97530 ==

== ENCOUNTER 2025-02-03 14:00 | Outpatient (RCR) | payer MEDICARE, BC, SELFPAY | END 2025-02-03 23:59 | disposition home or self-care (01) | LOC: OT 14:00 | PROVIDERS: Visit Provider Nurse Practitioner | DX: G56.90 Unspecified mononeuropathy of unspecified upper limb (principal) | CPT/HCPCS: 97014; 97110; 97140; G0283 ==

== ENCOUNTER 2025-02-10 13:00 | Outpatient (RCR) | payer MEDICARE, BC, SELFPAY | END 2025-02-10 23:59 | disposition home or self-care (01) | LOC: OT 13:00 | PROVIDERS: Visit Provider Nurse Practitioner | DX: G56.90 Unspecified mononeuropathy of unspecified upper limb (principal) | CPT/HCPCS: 97014; 97032; 97110; 97140; 97530; G0283 ==

== ENCOUNTER 2025-02-18 14:23 | Outpatient (CLI) | payer MEDICARE, BC, SELFPAY ==
--- NOTE | 2025-02-18 14:26 | MR_ITS ---
FINAL REPORT TECHNIQUE: Multiplanar MR without contrast CLINICAL HISTORY: neck pain with tingling in finger tips on right side x 2 months no injury COMPARISON: 12/22/2017 FINDINGS: Limited images of the posterior fossa are unremarkable. Alignment is normal. Cervical spinal cord shows normal signal and contour. C2-3: Tiny central disc protrusion C3-4: Tiny central disc protrusion C4-5: Tiny central disc protrusion. Moderate left facet overgrowth. Mild left neuroforaminal narrowing. C5-6: Moderate endplate spurring asymmetric to the left. Mild left neuroforaminal narrowing. C6-7: Mild to moderate annular disc bulge covered by osteophyte. Mild neuroforaminal narrowing. C7-T1: Unremarkable IMPRESSION: Multilevel degenerative changes, most pronounced at C5-6 and C6-7. Reviewed, Interpreted and Dictated by Ranjith Carlisle MD Transcribed by Vashti Jara Authenticated and [facility]
--- NOTE | 2025-02-18 14:26 | MR_ITS ---
FINAL REPORT TECHNIQUE: Multiplanar MR without contrast CLINICAL HISTORY: pain in right shoulder x 3 months 'pain travels from shoulder into neck FINDINGS: Marrow signal: Unremarkable Glenohumeral joint: Large joint effusion. There is superior subluxation. Mild degenerative changes are present. There are filling defects within the subcoracoid recess and biceps tendon sheath compatible with joint bodies. These are noncalcified. The largest measures 11 mm. AC joint: Moderate arthropathy. Mild rotator cuff impingement. Rotator cuff: Complete tear of the supraspinatus tendon. Mild partial tear of the infraspinatus tendon. Labrum: Normal morphology without tear Biceps tendon: Tendinosis without evidence of tear. IMPRESSION: Complete tear supraspinatus tendon. Large joint effusion with joint bodies Reviewed, Interpreted and Dictated by Ranjith Carlisle MD Transcribed by Vashti Jara Authenticated and [facility]
--- NOTE | 2025-02-18 14:27 | MR_ITS ---
FINAL REPORT TECHNIQUE: Multiplanar MR of the right humerus was obtained without contrast. CLINICAL HISTORY: RIGHT SHOULDER / upper arm PAIN COMPARISON: None FINDINGS: Abnormalities of the shoulder are described in the separate report. The humeral shaft demonstrates a normal marrow signal pattern. No soft tissue masses evident. Muscle signal pattern is normal. Distal biceps tendon and brachialis tendon are intact. The triceps tendon is intact. IMPRESSION: No abnormality of the upper arm. Please refer to the shoulder MRI report for additional details regarding that specific anatomy. Reviewed, Interpreted and Dictated by Ranjith Carlisle MD Transcribed by Rae Serrano Authenticated and [facility]
--- OUTSIDE RECORDS SUMMARY | 2025-02-18 14:27 | XMS_ITS | Data Portability ---
Author Organization [facility] [place] [facility] Address [address] [place] [address] Care Team Providers Care Assistant Sales Center Manager Name Role Phone ASH CHEL Shank Paperer ALEX ADRIAN Diabetes Physician RICKI GALVAN Primary Care Provider Assessment No assessment recorded. Plan of Treatment Reminders Order Date Submit Date Provider Last Modified By Organization Details Last Modified Time Details Appointments None recorded. Lab None recorded. Referral ophthalmi c plastic and reconstru ctive surgeon referral - Please evaluate and excise cystic nodule on L eyebrow. 2024 025 [email or web address] Troy Ibanez MD, [address] [facility], [place], [address], 11:52:50 Procedures None recorded. Surgeries None recorded. Imaging None recorded. Medication Orders clobetaso l 0.05 % topical ointment 2024 025 [facility] #[id number], [address] [address] [place], [place], [id number], 13:53:52 Patient TargetsNo targets recorded. Patient Instructions Encounter Date Encounter Id Patient Instructions Last Modified By Organization Details Last Modified Time 10/22/2024 [id number] No scheduled follow-up with rheumatology is needed Not available 10/22/2024 16:08:45 Reason for Referral Ophthalmic Plastic And Recon structive Surgeon Referral for Cyst of skin Please evaluate and excise cystic nodule on L eyebrow. Referring Physician: Philipp Presley, Dermatology, Encounter Date: 08/14/2024 Procedures Surgical History Date Name Laterality Status Provider Name and Address Organization Details Recorded Time 10/11/19 25 DAK - Cryo AK completed Brian Tobin [facility] 10/10/2024 14:14:19 09/12/19 25 Micro-Needling completed [facility] 09/12/2024 16:04:50 02/27/20 24 Micro-Needling completed [facility] 02/27/2024 14:09:46 01/09/20 24 Micro-Needling completed [facility] 01/09/2024 14:03:41 12/05/19 24 Micro-Needling completed [facility] 12/05/2023 14:24:13 11/13/19 24 IPL Treatment completed [facility] 11/13/2023 13:40:06 11/13/19 24 IPL Treatment - additional locations completed [facility] 11/13/2023 13:40:43 10/16/19 24 IPL Treatment completed [facility] 10/16/2023 14:12:51 10/16/19 24 IPL Treatment - additional locations completed [facility] 10/16/2023 14:13:59 dental surgical procedure completed ALEX ADRIAN MD [address] [place] [address], [phone] 10/22/2024 13:18:33 excision of tonsil, 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 completed ALEX ADRIAN MD [address] [place] [address], [phone], [facility] 10/22/2024 13:18:38 tonsillectomy completed ALEX ADRIAN MD [address] [place] [address], [address], [facility] 10/22/2024 13:18:44 procedure on hand completed ALEX ADRIAN MD [address] [place] [address], [phone], [facility] 10/22/2024 13:19:03 lithotripsy completed ALEX ADRIAN MD [address] [place], [address], [facility] 10/22/2024 13:19:08 ligation of fallopian tube completed ALEX ADRIAN MD [address] [place], [address], [facility] 10/22/2024 13:19:19 Imaging Results None recorded. Procedure Notes None recorded. Medical Equipment None Reported. Allergies Allergen ID Allergen Name Allergen Category Reaction Reaction Severity Criticality Documentation Date Start Date Code Code System Note Provider Name and Address Organization Details Recorded Time 710655 Product containin g penicilli n (product) medicatio n Not available Not available Not available 10/10/2024 92457 8001 SNOMED Kirstin Chris [facility] 13:53:06 Medications Name Sig Start Date Stop [...] blood by Pulse oximetry Heart rate Systolic And Diastolic Provider Name and Address Organization Details Last Updated DateTime 5 05895.5 9 g 16 /min 97 % 97 % 68 /min 106/86 mm[Hg] Racquel Bolton [facility] 13:10:26 Social History Question Answer Notes LastModified by Organizat ion Details LastModified Time Tobacco Smoking Status Current Every Day [email or web address] 09/21[facility]2023 12:55:50 Sunscreen Use? Yes Informatio n not available 07/10/2023 Tanning Bed Use No Informati on not available 07/10/2023 What Was The Date Of Your Most Recent Tobacco Screening? 10/22/2024 [email or web address] Information not available 10/22/2024 Sex: Unknown Functional Status Question Answer Note LastModified by Organization D etails LastModified Time What is your level of alcohol consumption? None [email or web address] Information not available 09/21/2023 Mental Status None recorded. Family History Relationship [...] SNOMED-CT Code Diagnosis ICD10 Code Diagnosis Note [id number] SHORTY FERGUSON MD [address] [address] [place] [address] 07/10/2023 12:28:34 07/10/2023 14:05:00 Solar degeneration 44162172 L57.8 L29.8 she had pruritus and non specific hives associated with severe anemia that has been treated and reversed. The rash and pruritus are gone call if pruritus recurs Asteatosis cutis 9759557 0 L85.3 dry skin care discussed [id number] SUKUMAR MAC [facility] [address] [place] [address] 09/21/2023 12:47:29 10/02/2023 10:10:35 Multiple benign melanocytic nevi 160510084 D22.5 D18.01 L82.1 L81.4 The benign nature of keratoses and lentigines was discussed with the patient.Sandoval n protection with SPF 30 broadspect rum sunscreen and protective gear discussed. Look for physical jethro sunscreens with at least SPF 30 containing zinc oxide or titanium dioxide as active ingredient .Recommend monthly self examinatio ns and yearly full skin examinatio n with a dermatolog y provider.R ecommend yearly eye exam.Recom [facility] OTC Vitamin D supplement .Patient instructed to call if any suspicious lesions are noted. Atopic dermatitis 628895 01 L20.89 The nature of the diagnosis was discussed. Pt to call if she needs rfs of TAC.Pt to call if flares/wor sens. [id number] SUKUMAR MAC [address] [place] [address] 10/10/2024 13:42:18 10/10/2024 14:21:31 Multiple benign melanocytic nevi 453088197 D22.5 L81.4 D18.01 L82.1 The benign nature [...] any suspicious lesions are noted. Actinic keratosis 007 L57.0 The nature of the diagnosis was explained. Pre-cancer ous.Will treat with LN2.F/u if treated lesions persist. Lichen sim plex chronicus 11507327 L28.0 The nature of the diagnosis was explained. Pt ok to use Clobetasol ointment bid x 2 weeks. SE reviewed. LT use discussed. [id number] BREANNA PRATT MD [address] [address] 10/16/2023 13:28:57 10/16/2023 14:10:59 Hyperpigmentation of skin 85126406 L81.9 [id number] BREANNA PRATT MD [place] [address] 11/13/2023 12:49:00 11/13/2023 13:36:35 Hyperpigmentation of skin 29003815 L81.9 [id number] BREANNA PRATT MD [address] [address] 12/05/2023 13:02:42 12/05/2023 14:20:58 Fine wrinkles on face 531444234 R23.4 [id number] BREANNA PRATT MD [address] [address] 01/09/2024 12:59:22 01/09/2024 14:10:06 Fine wrinkles on face 853511753 R23.4 [id number] BREANNA PRATT MD [place] [address] 02/27/2024 12:59:36 02/27/2024 14:14:37 Fine wrinkles on face 849010650 R23.4 [id number] PHILIPP PRESLEY PA-C [place] [address] 08/14/2024 14:04:38 08/15/2024 05:06:58 Lichen simplex chronicus 79064382 L28.0 G54.8 The nature of the diagnosis was explained. Suspect notalgia parestheti ca with secondary LSCHx degenerati ve disc diseaseBen ign. Itch-scrat ch cycle must be broken.Badi atment options and expectatio ns discussed. Rx prescribed Clobetasol Ointment - SE ReviewedPt to call if not resolved and we can refer to PTPt encouraged to call with any concerns or questions. Cyst of skin 601026800 L 72.8 The nature of the diagnosis was explained. Appears to be a clinically benign cyst, although it is rather firm to the touch and pt reports recent growthRefe rral sent to Dr. Ibanez for excisionPt to call if cyst flares/wor sens. [id number] BREANNA PRATT MD [address] [address] 09/12/2024 14:52:39 09/12/2024 16:00:07 Fine wrinkles on face 972498833 R23.4 [id number] ALEX ADRIAN MD RHEUMATOL OGY [address] [place] [address] 10/22/2024 12:46:41 10/23/2024 04:37:26 Anti-nuclear factor detected 234902478 R76.8 DENNISE +1: 160. More specific serologies [...] on symptoms that would warrant reevaluati on. Generalize d osteoarthritis 946713730 M15.9 She has symptoms of osteoarthr itis affecting multiple areas. Reassuranc e provided that I do not appreciate signs or symptoms to suggest underlying inflammato ry arthritis. Health Concerns Section Related Observation LastModified by Organization Detai ls LastModified Time None Recorded Concern Status LastModified by Organization Details LastModified Time None Recorded Advance Directives Directive None Recorded Payers Insurance Date Sequence Insurance Name Policy Number Policy Hernandez Covered Member ID Hernandez Member ID Guarantor Name 08/14/2024 GENERIC INSURANCE - MOVED-HOLD Lauren Gutierrez 10/10/2024 3 [employer] BLUE CROSS - FEP [id number] Bianca Gutierrez [id number] Bianca Gutierrez 10/19/2024 2 [place] PROGRAM [id number] Bianca Gutierrez [id number] iBanca Gutierrez 10/07/2024 1 [place] Bianca Gutierrez [id number] Bianca Gutierrez Notes Date Note Type Note Provider Name and Address Organization Details Recorded Time 08/14/2024 text/html I have a rash on my backDuration: a few monthsReports: itchy PHILIPP PRESLEY PA-C [address] [place], [address], [facility] 08/14/2024 16:18:52 10/10/2024 text/html [email or web address] hxreports: no concerns SUKUMAR MAC [address] [place], [address], [facility] 10/10/2024 17:13:35 10/22/2024 text/html Referred by PCP for evaluation [...] in urine or stool. ALEX ADRIAN MD [facility] [place], [address], [facility] 10/22/2024 16:08:58 OBGyn Episode No OBEpisode recorded.
--- OUTSIDE RECORDS SUMMARY | 2025-02-18 14:27 | XMS_ITS | Clinical Summary ---
Author Organization [facility] Address [address] [place], [place] [id number] Care Team Providers Care Seismic Observer Name Role Phone Aramis Miller MD Primary Care Provider [phone] Immunizations Immunization Administration Dates Next Due Influenza, injectable, quadrivalent, preservativ e free 05/13/2019 Social History Tobacco Use Types Packs/Day Years Used Date Smoking Tobacco: Former Comments Unknown Sex and Gender Information Value Date Recorded Sex Assigned at Not on file Legal Sex Female 6:29 PM EDT Gender Identity Not on file Sexual Orientation Not on file Last Filed Vital Signs Vital Sign Reading Time Taken Comments Blood Pressure 116/64 01/19/2018 10:44 AM EDT Pulse - - Temperature - - Respiratory Rate - - Oxygen Saturation - - Inhaled Oxygen Concentration - - Weight 73.9 kg (162 lb 14.7 oz) 018 10:44 AM EDT Height 167.6 cm (5' 6 ) 01/19/2018 10:4 4 AM EDT Body Mass Index 26.3 01/19/2018 10:44 AM EDT Plan of Treatment Upcoming Encounters Date Type Department Care Team (Late st Contact Info) Description 10/14/2025 3:00 PM EDT Ovarian Cancer Screening [facility] [address] [facility] [place] [address] Health Maintenance Due Date Last Done Comments [facility]-Bone Density Scan 1954 [facility]-Depression Screening 1954 [facility]-Hepatitis C Screening 1954 [facility]-Medicare Annual Wellness (AWV) 1954 [facility]-/Child/Adol SDOH Screenings 1954 [facility]- SDOH Screenings 1972 [facility]-Adult SDOH Screenings 1972 CT Colonography 1999 Colonoscopy 1999 FIT-DNA 1999 FIT 1999 FOBT 1999 Sigmoidoscopy 1999 [facility]-Colorectal Cancer Screening 1999 [facility]-Breast Cancer Screening 2004 [facility]-Zoster Vaccines (1 of 2) 2004 [facility]-[id number]-80 Vaccine ( season) 2024 06/19/2024, 05/04/2023, 11/22/2021, Additional history exists [facility]-Influenza Vaccine (#1) 04/07/202506/19, 05/04/2023, 04/21/2022, Additional history exists [facility]-RSV Vaccine: 60+ Years or (1 - 1-dose 75+ series) 2029 [facility]-DTaP,Tdap,and Td Vaccines (2 - Td or Tdap) 06/23/2032 06/23/2022 [facility]-Pneumococcal Vaccine: 50+ Years Completed 06/20/2023 HPV Vaccines Aged Out No longer eligi ble based on patient's age to complete this topic [facility]-HIB Vaccines Aged Out No longer e ligible based on patient's age to complete this topic [facility]-Hepatitis A Vaccines Aged Out No longer eligible based on patient's age to complete this topic [facility]-IPV Vaccines Aged Out No longer e ligible based on patient's age to complete this topic [facility]-Rotavirus Vaccines Aged Out No lo nger eligible based on patient's age to complete this topic Insurance MEDICARE Care Teams Seismic Observer Relationship Specialty Start Date End Date Aramis Miller MD [address] [place] [address] PCP - General 10/08/24
--- OUTSIDE RECORDS SUMMARY | 2025-02-18 14:27 | XMS_ITS | Data Portability ---
Author Organization [facility] - [place] [facility] [place] [facility] AD[facility] Address [address] [place] [address] Assessment Encounter Date Assessment Date Assessment LastModified [...] prn - will notify with lab results. [email or web address] Not available 01/29/2024 22:46:34 Plan of Treatment Reminders Order Date Submit Date Provider Last Modified By Organization Details Last Modified Time Details Appointments None recorded. Lab iron + TIBC + ferritin, serum 2023 024 HEIDI [facility], [address], [address], [place], [address], 4 11:12:48 CBC 2023 024 HEIDI [facility], [address], [address], [place], [address], 4 11:12:49 CMP, serum or plasma 2023 024 HEIDI [facility], [address], [address], [place], [address], 4 11:12:48 Referral None recorded. Procedures None recorded. Surgeries None recorded. Imaging LDCT, chest, for lung cancer screening - 1- Did patient participate in a shared decision-ma hua session with the provider? YES 2- Is patient age between 50-77 years old? YES 3- Did patient smoke at least 20 pack year? YES 4- Is patient current smoker or quit smoking within the last 15 years? YES 5- Is the patient asymptomati c (no signs or symptoms of lung cancer)? YES 2022 023 [facility] (Centralized Scheduling), [address], [place], [address], 3 14:35:08 Medication Orders Ventolin HFA 90 mcg/actuati on aerosol inhaler 2022 023 [id number], [address], [phone], 3 13:39:36 Symbicort 160 mcg-4.5 mcg/actuati on HFA aerosol inhaler 2022 023 [facility] #[id number], [address], [id number], 3 13:39:32 Patient TargetsNo targets recorded. Patient Instructions Encounter Date Encounter Id Patient Instructions Last Modified By Organization Details Last Modified Time 10/18/2022 [id number] smoking cessatio n counseling, greater than 3 minutes up to 10 minutes* [email or web address] Not available 10/18/2022 13:39:26 Reason for Referral None Reported. Results Created Date Observation Date Name Description Value Unit Range Abnormal Flag Note LastModifiedBy Organization Detail LastModifiedTime 01/29/20 24 01/30/2024 FE+TI BC+FE R iron bind.cap.(TI BC) 421 ug/dL 250-45 0 Not Available [facility] ([facility]) [address] [place], [address], 01/30/2024 11:12:48 01/29/20 24 01/30/2024 FE+TI BC+FE R UIBC 342 ug/dL 118-36 9 Not Available [facility] ([facility]) [address] [place], [address], 01/30/2024 11:12:48 01/29/20 24 01/30/2024 FE+TI BC+FE R iron 79 ug/dL 27-139 Not Available [facility] ([facility]) [address] [place], [address], 01/30/2024 11:12:48 01/29/20 24 01/30/2024 FE+TI BC+FE R iron saturation 19 % 15-55 Not Available [facility] ([facility]) [address] [place], [address], 01/30/2024 11:12:48 01/29/20 24 01/30/2024 FE+TI BC+FE R ferritin 20 NG/mL 15-150 Not Available [facility] ([facility]) [address] [place], [address], 01/30/2024 11:12:48 01/29/20 24 01/30/2024 COMP. METAB OLIC PANEL (14) glucose 86 mg/dL 70-99 Not Available [facility] ([facility]) [address] [place], [address], 01/30/2024 11:12:48 01/29/20 24 01/30/2024 COMP. METAB OLIC PANEL (14) BUN 15 mg/dL 8-27 Not Available [facility] ([facility]) [address] [place], [address], 01/30/2024 11:12:48 01/29/20 24 01/30/2024 COMP. METAB OLIC PANEL (14) creatinine 0.93 mg/dL 0.57-1 .00 Not Available [facility] ([facility]) [address] [place], [address], 01/30/2024 11:12:48 01/29/20 24 01/30/2024 COMP. METAB OLIC PANEL (14) eGFR 67 mL/mi n/1.7 3 >59 Not Available [facility] ([facility]) [address] [place], [address], 01/30/2024 11:12:48 01/29/20 24 01/30/2024 COMP. METAB OLIC PANEL (14) BUN/creatini ne ratio 16 12-28 Not Available [facility] ([facility]) [address] [place], [address], 01/30/2024 11:12:48 01/29/20 24 01/30/2024 COMP. METAB OLIC PANEL (14) sodium 140 mmol/ L 134-14 4 Not Available [facility] ([facility]) [address] [place], [address], 01/30/2024 11:12:48 01/29/20 24 01/30/2024 COMP. METAB OLIC PANEL (14) potassium 4.9 mmol/ L 3.5-5. 2 Not Available [facility] ([facility]) [address] [place], [address], 01/30/2024 11:12:48 01/29/20 24 01/30/2024 COMP. METAB OLIC PANEL (14) chloride 104 mmol/ L 96-106 Not Available [facility] ([facility]) [address] [place], [address], 01/30/2024 11:12:48 01/29/20 24 01/30/2024 COMP. METAB OLIC PANEL (14) carbon dioxide, total 24 mmol/ L 20-29 Not Available [facility] ([facility]) [address] [place], [address], 01/30/2024 11:12:48 01/29/20 24 01/30/2024 COMP. METAB OLIC PANEL (14) calcium 9.6 mg/dL 8.7-10 .3 Not Available [facility] ([facility]) [address] [place], [address], 01/30/2024 11:12:48 01/29/20 24 01/30/2024 COMP. METAB OLIC PANEL (14) protein, total 6.8 g/dL 6.0-8. 5 Not Available [facility] ([facility]) [address] [place], [address], 01/30/2024 11:12:48 01/29/20 24 01/30/2024 COMP. METAB OLIC PANEL (14) albumin 4.1 g/dL 3.9-4. 9 Not Available [facility] ([facility]) [address] [place], [address], 01/30/2024 11:12:48 01/29/20 24 01/30/2024 COMP. METAB OLIC PANEL (14) globulin, total 2.7 g/dL 1.5-4. 5 Not Available [facility] ([facility]) [address] [place], [address], 01/30/2024 11:12:48 01/29/20 24 01/30/2024 COMP. METAB OLIC PANEL (14) bilirubin, total 0.2 mg/dL 0.0-1. 2 Not Available [facility] ([facility]) [address] [place], [address], 01/30/2024 11:12:48 01/29/20 24 01/30/2024 COMP. METAB OLIC PANEL (14) alkaline phosphatase 80 IU/L 44-121 Not Available [facility] ([facility]) [address] [place], [address], 01/30/2024 11:12:48 01/29/20 24 01/30/2024 COMP. METAB OLIC PANEL (14) AST (SGOT) 20 IU/L 0-40 Not Available [facility] ([facility]) [address] [facility], [place], [address], 01/30/2024 11:12:48 01/29/20 24 01/30/2024 COMP. METAB OLIC PANEL (14) ALT (SGPT) 20 IU/L 0-32 Not Available [facility] ([facility]) [address] [facility], [place], [address], 01/30/2024 11:12:48 01/29/20 24 01/30/2024 CBC, PLATE LET, NO DIFFE RENTI AL WBC 11.7 x10e3 /uL 3.4-10 .8 above high normal Not Available [facility] ([facility]) [address] [facility], [place], [address], 01/30/2024 11:12:49 01/29/20 24 01/30/2024 CBC, PLATE LET, NO DIFFE RENTI AL RBC 4.69 x10e6 /uL 3.77-5 .28 Not Available [facility] ([facility]) [address] [facility], [place], [address], 01/30/2024 11:12:49 01/29/2001/30/2024 CBC, PLATE LET, NO DIFFE RENTI AL hemoglobin 13.7 g/dL 11.1-1 5.9 Not Available [facility] ([facility]) [address] [place], [address], 01/30/2024 11:12:49 01/29/20 24 01/30/2024 CBC, PLATE LET, NO DIFFE RENTI AL hematocrit 43.3 % 34.0-4 6.6 Not Available [facility] ([facility]) [address] [place], [address], 01/30/2024 11:12:49 01/29/20 24 01/30/2024 CBC, PLATE LET, NO DIFFE RENTI AL MCV 92 fL 79-97 Not Available [facility] ([facility]) [address] [facility], [place], [address], 01/30/2024 11:12:49 01/29/20 24 01/30/2024 CBC, PLATE LET, NO DIFFE RENTI AL MCH 29.2 pg 26.6-3 3.0 Not Available [facility] ([facility]) [address] [facility], [place], [address], 01/30/2024 11:12:49 01/29/20 24 01/30/2024 CBC, PLATE LET, NO DIFFE RENTI AL MCHC 31.6 g/dL 31.5-3 5.7 Not Available [facility] ([facility]) [address] [facility], [place], [address], 01/30/2024 11:12:49 01/29/20 24 01/30/2024 CBC, PLATE LET, NO DIFFE RENTI AL RDW 14.0 % 11.7-1 5.4 Not Available [facility] ([facility]) [address] [place], [address], 01/30/2024 11:12:49 01/29/20 24 01/30/2024 CBC, PLATE LET, NO DIFFE RENTI AL platelets 366 x10e3 /uL 150-45 0 Not Available [facility] ([facility]) [address] [place], [address], 01/30/2024 11:12:49 01/29/20 24 01/30/2024 CBC, PLATE LET, NO DIFFE RENTI AL NRBC CODING ADVISOR Not Available [facility] ([facility]) [address] [place], [address], 01/30/2024 11:12:49 04/20/11/24/2022 LDCT, chest , for lung fer [facility] [address] [place] [address] Phone: Fax: Name: HIEU SANTA SA Exam Date: 023 : 954 Age 67 Gender : F Access ion: [id number] Physic mendy: RAMON MIRANDA Facili ty: [facility] Facili ty HSV: Outpat ient Exam: CT [...] you for referr HIEU Cordova SA to [facility]. Legall y authen ticate d by POPE MOODY Mooney 11-24 14:22: 38 CC'ed Logic: Orderi ng Provid er: RUBEN VERA Attend ing Provid er: RUBEN VERA Referr ing Provid er: RUBEN VERA Admitt ing Provid er: RUBEN VERA [facility] [address] [place] [address], [address], 11/24/2022 14:38:54 Result Notes Documentation Provider Name and Address Organization Details Recorded Time Ldct, Chest, For Lung Cancer Screening : [address] [address] Name: BIANCA GUTIERREZ Exam Date: 11/24/2022 : 1955 Age 67 Gender: F Physician: RAMON MIRANDA Facility: [facility] Facility HSV: Outpatient Exam: CT LOW DOSE LUNG SCREENING LOW DOSE SCREENING CT SCAN OF THE CHEST WITHOUT CONTRAST COMPARISON: 08/30/2021 HISTORY: Current smoker with a 36-ovta-swys history. PROCEDURE: Axial images were obtained from the lung apex to the mid abdomen by computed tomography in a low dose screening protocol. This study was performed with techniques to keep radiation doses as low as reasonably achievable, (ALARA). CTDI: 1.10 mGy. DLP: 44.59 mGy/cm. FINDINGS: CHEST: There is no axillary adenopathy. There is no hilar or mediastinal adenopathy. There is evidence of prior calcified granulomatous disease. There is atherosclerosis. Heart size is normal. There is no pericardial or pleural effusion. Limited images of the upper abdomen are unremarkable. No suspicious infiltrate or nodules identified. Mild emphysematous changes are seen throughout the lungs. No acute osseous abnormality is identified. IMPRESSION: Lung Rads category 1. Continued annual low dose screening of the chest recommended. Images reviewed, interpreted and dictated by Dr. Gomez. Transcribed by Julian Barber PA-C Dictated By: MOODY GOMEZ Transcribed By: Moody Gomez Transcribed On: 11/24/2022 2:22 PM Electronically signed by: MOODY GOMEZ 11/24/2022 Thank you for referring BIANCA GUTIERREZ to [facility]. Legally authenticated by POPE MOODY Mooney 2022-11-24 14:22:38 CC'ed Logic: Ordering Provider: RUBEN VERA Attending Provider: RUBEN VERA Referring Provider: RUBEN VERA Admitting Provider: RUBEN Miranda MD [address], [place], [address], [place] - [facility] - [place] [facility] [place] 11/24/2022 14:38:54 Problems Name Problem SNOMED Code Status Onset Date Resolution Date Notes Provider Name and Address Organization Details Recorded Time Chronic obstructiv e pulmonary disease 90616100 Active 2022 Ramon Miranda MD [address], [facility] [address] , [place] - [facility] - [place] [facility] [place] 3 13:35:27 Dyspnea on exertion 29762561 Active 2022 Ramon Miranda MD [address], [place], [address] , [place] - [facility] [place] [facility] [place] 3 13:35:40 Tobacco dependence caused by cigarettes 4352164257424 9107 Active 2022 Ramon Miranda MD [address], [facility] [address] , [place] - [facility] - [place] 3 13:35:48 Angiodyspl jaiden of gastrointe stinal tract 2565387634152 07 Active 2023 Carlos Manuel Black PA-C [address], [facility] [address] , [place] - [facility] - [place] 4 13:57:50 Chronic idiopathic constipati on 73456668 Active 2023 Carlos Manuel Black PA-C [address], [facility] [address] , [place] [facility] & [place] 4 14:01:48 Problem Notes None recorded. Procedures Surgical History Date Name Laterality Status Provider Name and Address Organization Details Recorded Time 4 Procedure Note completed Vivienne HUSSEIN [facility] & [place] 01/29/2024 14:14:43 2 completed Esperanza HUSSEIN [facility] & [place] 01/29/2024 14:16:34 2 Date of Last Pap Smear completed Esperanza HUSSEIN [facility] & [place] 01/29/2024 14:16:34 0 Date of Last Colonoscopy completed Esperanza HUSSEIN [facility] & [place] 01/29/2024 14:16:34 0 Most Recent Bone Density completed Esperanza HUSSEIN [facility] & [place] 01/29/2024 14:16:34 Imaging Results None recorded. Procedure Notes None recorded. Medical Equipment None Reported. Allergies Allergen ID Allergen Name Allergen Category Reaction Reaction Severity Criticality Documentation Date Start Date Code Code System Note Provider Name and Address Organization Details Recorded Time 826597 penicilli n G Not available anaphylax is rash swelling moderate severe mild Not available 01/29/2024 7980 RxNorm KEENAN Figueroa [facility] & [place] 4 14:16:33 53728 Product containin g penicilli n (product) medicatio n Not available Not available Not available 10/18/2022 24378 8001 SNOMED Una KEENAN Ramesh [facility] & [place] 3 13:09:03 Medications Name Sig Start Date [...] Address Organization Details Last Updated DateTime 3 54502.2 2 g 24.9 kg/m2 167.64 cm 97.3 [degF] 100 % 100 % 62 /min 120/77 mm[Hg] Una HUSSEIN [facility] & [place] 3 13:12:55 Date Recorded Body weight Body mass index (BMI) Body height Body temperature Heart rate Heart rate Oxygen saturation Oxygen saturation in Arterial blood by Pulse oximetry Systolic And Diastolic Provider Name and Address Organization Details Last Updated DateTime 4 00301.8 8 g 25.5 kg/m2 167.64 cm 97.9 [degF] 68 /min 65 /min 99 % 99 % 113/70 mm[Hg] Vivienne Medellin [facility] & [place] 4 13:30:10 Social History Question Answer Notes LastModified by Organizat ion Details LastModified Time Tobacco Smoking Status Current Every Day Smoker Una plascencia IA Jose [facility] & [place] 10/18/2022 13:10:53 Do You Have An Advance Directive? Yes Information not available 01/29/2024 Are You Blind Or Do You Have Difficulty Seeing? No Information not available 01/29/2024 What Is Your Level Of Caffeine Consumption? Heavy [email or web address] Information not available 10/18/2022 What Was The Date Of Your Most Recent Tobacco Screening? 10/15/2022 Information not available 01/29/2024 What Is Your Current Pack Years? 30ormorepack years [email or web address] Information not available 10/18/2022 At What Age Did You Start Smoking Tobacco? 34 [email or web address] Information not available 10/18/2022 Are You Passively Exposed To Smoke? No Information not available 01/29/2024 How Much Tobacco Do You Smoke? 0.5 PPD [email or web address] Information not available 10/18/2022 How Many Years Have You Smoked Tobacco? 35 Information not available 01/29/2024 Sex: Female Functional Status Question Answer Note LastModified by [employer] ion Details LastModified Time Do you use any illicit or recreational drugs? No [email or web address] Information not available 10/18/2022 What is your level of alcohol consumption? Occasional [email or web address] Information not available 10/18/2022 Do you or have you ever used smokeless tobacco? Never used smokeless tobacco Information not available 01/29/2024 What is your exercise level? Occasional Information not available 01/29/2024 Mental Status Question Answer Note LastModified by [employer] Details LastModified Time Do you feel stressed (tense, restless, nervous, or anxious, or unable to sleep at night)? [id number] Information not available 01/29/2024 Family History Relationship Description Onset Age of [...] SNOMED-CT Code Diagnosis ICD10 Code Diagnosis Note [id number] Ramon Miranda MD [facility] [address] [facility] [place] [address] 10/18/2022 12:59:43 10/18/2022 13:26:58 Chronic obstructive pulmonary disease 93809030 J44.9 Will start patient on Symbicort to [...] basis. Tobacco de pendence caused by cigarettes [id number] 3736688 F17.210 Patient counseled extensivel y to quit smoking and will continue follow this up. Screening for malignant neoplasm of respiratory tract 678285710 Z12.2 The patient has participat ed in [...] smoking abstinence , including the offer of Medicare-c over tobacco cessation counseling services, if applicable . The patient is asymptomat ic (no symptoms such as fever, chest pain, new shortness of breath, new or changing cough, coughing up blood, or unexplaine d significan t weight loss). [id number] Carlos Manuel Black PA-C [facility] [address] [place] [address] [address] [place] [address] 01/29/2024 13:07:24 01/29/2024 14:14:52 Angiodysplasia of gastrointestinal tract 7908517584 22195 K55.20 Chronic id iopathic constipation 68077979 K59.04 History of polyp of colon 045200673 Z86.010 Health Concerns Section Related Observation LastModified by Organization Detai ls LastModified Time None Recorded Concern Status LastModified by Organization Details LastModified Time None Recorded Advance Directives Directive Y: Payers Insurance Date Sequence Insurance Name Policy Number Policy Hernandez Covered Member ID Hernandez Member ID Guarantor Name 01/29/2024 1 [place] Bianca Gutierrez [id number] Bianca Gutierrez 01/29/2024 2 BC[employer]-[place] BLUE CROSS - FEP 111 Bianca Gutierrez [id number] Bianca Gutierrez Notes Date Note Type Note [...] her weight or appetite. Ramon Miranda MD [facility] [address], [place], [address], [facility] & [place] 10/18/2022 13:40:00 4 text/html Ms. Gutierrez is [...] was 14.5 while donating blood to the [facility]. She reports feeling well currently. She has chronic constipation for which she is taking Metamucil and miralax once daily. This manages her symptoms well. She was referred to establish care with our practice after her previous holistic health practitioner stopped practicing. Carlos Manuel Black PA-C [address], [place], [address], [facility] - [place] - [place] 01/29/2024 22:47:12 OBGyn Episode No OBEpisode recorded.
--- OUTSIDE RECORDS SUMMARY | 2025-02-18 14:27 | XMS_ITS ---
Laboratory report Created on: January 05, 2025 NUPUR HAWKINS : 1955 Sex: Female Author Name RANJANA [facility] Unknown PROBLEMS Problems List Code Description E55.9 RESULTS Laboratory Orders Date Order Code Test 2024-12-31 [id number] VITAMIN D, 25-HY DROXY Laboratory Results Date LOINC Test Value Unit Reference Range [facility] tation 2024-12-31 42815-8 VITAMIN D, 25-HYDROXY 41.3 NG/ML 30.0-10 0.0
== END 2025-02-18 23:59 | disposition home or self-care (01) ==
LOC: RAD 14:23
PROVIDERS: PCP Family Medicine; Visit Provider Nurse Practitioner
DX: M75.121 Complete rotator cuff tear or rupture of right shoulder, not specified as traumatic (principal); M25.411 Effusion, right shoulder; M47.812 Spondylosis without myelopathy or radiculopathy, cervical region
CPT/HCPCS: 72141; 73218; 73221

== ENCOUNTER 2025-03-19 10:25 | Outpatient (CLI) | payer MEDICARE, BC, SELFPAY ==
[2025-03-19 08:16] VITALS: BMI 22.6
--- NOTE | 2025-03-19 10:28 | XR_ITS ---
FINAL REPORT CLINICAL HISTORY: Pre op surgery..smoker COMPARISON: 11/19/2024 FINDINGS: 2 views of the chest were obtained . The heart is normal in size. The mediastinum is within normal limits. There is right lower lobe scarring. There is no pneumothorax. Osseous structures demonstrate S-shaped scoliosis of the upper thoracic spine. IMPRESSION: Right lower lobe scarring. Otherwise unremarkable exam. Reviewed, Interpreted and Dictated by Ranjith Carlisle MD Transcribed by Camryn Martinez Authenticated and . [facility]
--- OUTSIDE RECORDS SUMMARY | 2025-03-19 10:29 | XMS_ITS | Clinical Summary ---
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 Name Role Phone Aramis Miller MD Primary Care Provider [phone] Immunizations Immunization Administration Dates Next Due Influenza, [...] 10/14/2025 3:00 PM EDT Ovarian Cancer Screening [facility] [address] [facility] [place] [address] Health Maintenance Due Date Last Done Comments [facility]-Bone Density Scan 1955 [facility]-Depression Screening 1955 [facility]-Hepatitis C Screening 1955 [facility]-Medicare Annual Wellness (AWV) 1955 [facility]-Infant/Child/Adol SDOH Screenings 1955 [facility]- SDOH Screenings 1972 [facility]-Adult SDOH Screenings 1972 CT Colonography 1999 Colonoscopy 1999 FIT-DNA 1999 FIT 1999 FOBT 1999 Sigmoidoscopy 1999 [facility]-Colorectal Cancer Screening 1999 [facility]-Breast Cancer Screening 2004 [facility]-Zoster Vaccines (1 of 2) 2004 QBV-CMIYS-90 Vaccine ( season) 2024 06/19/2024, 05/04/2023, 11/22/2021, [...] complete this topic Insurance MEDICARE Care Teams Burglar Alarm Mechanic Relationship Specialty Start Date End Date Aramis Miller MD [address] [place] [address] PCP - General 10/08/24
--- NOTE | 2025-03-19 10:52 | ECG_ITS ---
APPROVED REPORT Exam: Resting ECG HR:68 bpm ECG Measurements Heart Rate 68 AXES HI 124 P 26 QRSd 102 QRS -10 QT 396 T 56 QTc 414 Conclusion SINUS RHYTHM INCOMPLETE RIGHT BUNDLE BRANCH BLOCK [90+ ms QRS DURATION, TERMINAL R IN V1/V2, 40+ ms S IN I/aVL/V4/V5/V6] BORDERLINE ECG UNCONFIRMED REPORT Electronically signed by : Richard Denney MD 03/21/2025 07:42:30
[2025-03-19 11:12] LABS: Hematocrit 34.6 % (37.0-47.0); Hemoglobin 11.0 g/dL (12.2-16.2); Immature Granulocytes % 0.3 %; Mean Corpuscular HGB Conc 31.8 g/dL (31.8-35.4); Mean Corpuscular Hemoglobin 28.6 pg (27.0-31.2); Mean Corpuscular Volume 89.9 fl (81-99); Nucleated Red Blood Cells % 0 %; Platelet Count 417 K/mm3 (142-424); Red Blood Count 3.85 M/mm3 (4.20-5.40); Red Cell Distribution Width-SD 51.2 fL; White Blood Count 11.2 K/mm3 (4.8-10.8)
[2025-03-19 11:34] LABS: Chloride 106 mmol/L (98-107); Sodium 140 mmol/L (136-145)
[2025-03-19 11:35] LABS: Potassium 4.6 mmoL/L (3.5-5.1)
[2025-03-19 11:37] LABS: Blood Urea Nitrogen 10 mg/dl (7-17)
[2025-03-19 11:38] LABS: Anion Gap 10.6 mEq/L (5-15); Calcium 9.1 mg/dl (8.4-10.2); Carbon Dioxide 28 mmol/L (22.0-30.0); Creatinine Clearance Estimated 52 mL/min (50-200); Creatinine,Serum 0.80 mg/dl (0.52-1.04); Estimated Glomerular Filt Rate 71 ml/min (>60); GFR (African American) 86 ML/MIN (>60); Glucose 94 mg/dl (74-100)
== END 2025-03-19 23:59 | disposition home or self-care (01) ==
LOC: PREOP 10:26
PROVIDERS: PCP Family Medicine; Visit Provider Orthopaedic Surgery
DX: Z01.810 Encounter for preprocedural cardiovascular examination (principal); Z01.811 Encounter for preprocedural respiratory examination; Z01.812 Encounter for preprocedural laboratory examination; J98.4 Other disorders of lung; I45.19 Other right bundle-branch block; R94.31 Abnormal electrocardiogram [ECG] [EKG]; F17.200 Nicotine dependence, unspecified, uncomplicated
CPT/HCPCS: 71046; 80048; 85025; 93005

== ENCOUNTER 2025-03-25 09:29 | Day surgery (SDC) | payer MEDICARE, BC, SELFPAY ==
[2025-03-19 12:20] VITALS: BMI 22.6
[2025-03-25] VITALS (10 sets, daily range): BP systolic 117–144; BP diastolic 64–75; PULSE 59–72; RESP 16–17; TEMP 36.1–36.8; O2SAT 93–96
[2025-03-25] MEDS: LACTATED RINGERS 1000ML 1,000 ML 100 ML IV (10:13)
--- NOTE | 2025-03-25 10:25 | EXP.ANES.CKL ---
[facility] Disclaimer: The information contained in this section may have been updated after the patient was seen, as this information can be updated by other users. Medical History COPD mixed type Tobacco abuse counseling Tobacco abuse Lung nodule Smoking greater than 30 pack years Pulmonary emphysema Dyspnea on exertion Arthritis Kidney stone HLD (hyperlipidemia) HTN (hypertension), benign Depression COPD (chronic obstructive pulmonary disease) Surgical History History of tubal ligation History of thumb surgery History of surgical removal of ganglion cyst History of oral surgery Hx of tonsillectomy History of arthroscopy of both knees Family History Other Family history of cancer Hyperlipidemia Social History Smoking Status: Current every day smoker tobacco type: cigarettes packs per day: 1 second hand exposure: No alcohol intake: never substance use type: denies use current occupational status: retired Travel in the last 8 weeks?: None household members: friend(s) housing: house current occupational exposures/hazards: No caffeine: Yes Have you lived/traveled outside [place] in past 30 days?: No Contact w/someone who lives/traveled outside US past 30 days?: No Exposure to someone with infectious disease in past 14 days?: No Do you have a fever (greater than 100.4 F or 38 C)?: No Have you tested positive for COVID-19?: No Exposed to someone with COVID-19 in past 14 days?: No Do you have a sore throat?: No Do you have a cough?: No Do you have any weakness?: No Do you have any diarrhea?: No Are you experiencing any unusual bleeding?: No Do you have any muscle aches/pain?: No Do you have any abdominal pain?: No Are you experiencing loss of taste or smell?: No [facility] Anesthesia Checklist Patient Identification Patient Identification: Arm Band and Verbal (Name & ) Structural Data Admitted From: Home Planned Operative Procedure/s: Right shoulder arthroscopy Consent for Planned Operative Procedure(s) Verified: Yes Verified Documents: Surgical Consent NPO Status Verified Time NPO: 00:00 Chart Verification Results Verified: ECG Additional verifications Anesthesia Reactions: No Hx Blood Transfusions: No Blood Transfusion Reaction: No Airway Assessment Mallampati Score:: Class II C-Spine Mobility Assessed: Yes TMJ Mobility Assessed: Yes Dentition: Good Dentition (Few missing teeth on top) Neurological Assessment Level of Consciousness: Awake, Alert and Appropriate Hx Seizures: No Numbness or tingling in extremities: No Anesthesia Plan Anesthesia Risk discussed: Yes Anesthesia Plan: Verified ASA Class: II Anesthesia Type: General
[2025-03-25] MEDS: CLINDAMYCIN PHOSPHATE/D5W 900 MG/50 ML PIGGYBACK 100 MG IV (11:03)
[2025-03-25] MEDS: EPINEPHrine 1MG/ML 30ML VIAL 30 MG (11:38)
[2025-03-25] MEDS: RINGERS SOLUTION,LACTATED 12,000 ML 400 ML IR (11:44)
--- NOTE | 2025-03-25 13:02 | EXP.ANES.I ---
[facility] Anesthesia Record Part I Anesthesia Record I Intake, IV Amount: 1,100 Hydration: Adequate Estimated blood loss (mL): 5 Urine output (mL): 0 Blood Products used (#): none Blood Pressure: 144/75 SaO2: 94 Pulse Rate: 65 Airway Patency: Patent Respiratory Rate: 16 Temperature: 97 F Patient is:: Drowsy and Stable Stable to PACU at:: 12:55
--- NOTE | 2025-03-25 13:12 | EXP.OP.NOTE ---
Date of procedure: 03/25/25 Pre-op Diagnosis:: Right shoulder full-thickness rotator cuff tear Post-op Diagnosis:: Same Procedure performed:: Right shoulder arthroscopy with rotator cuff repair Surgeon:: Cristobal Mcdonald DO Waterfront Director(s):: Kenneth COWART BOX BLANK MACHINE OPERATOR HELPER:: Zachary Giang Anesthesia: GETA and regional Estimated blood loss (mL): 0 Operative findings:: Full-thickness retracted rotator cuff tear that was reducible to the footprint Operative note:: Patient identified preoperatively. Right shoulder marked with yes my initials. Underwent a peripheral block with anesthesia. Taken the operating room. Placed upon operating bed general anesthesia administered airway secured. Then placed in a lateral position with a beanbag with all bony prominences well-padded axillary roll placed. Right upper extremity is placed in line traction with the shoulder uriostegui. Right shoulder then prepped and draped normal sterile fashion. Once prepped and draped final operative timeout performed to identify proper patient procedure and extremity. Everyone involved in the case agreed. There is no counter indications to beginning. Did receive preoperative antibiotics. Marking pen was used to castillo bony landmarks of the shoulder and standard portal sites standard posterior viewing portal was then incised and blunt with trocar was placed in the glenohumeral joint this exchanged with the camera. Swept directly anteriorly above the subscapularis tendon where the anterior working portal was made switch was switching stick and a purple working cannula. Attention was then brought to the anterior articular aspect of the shoulder. There was some fraying of the anterior superior labrum. Debridement was performed of the fraying degenerative labrum there was no full-thickness tearing of the labrum. The biceps tendon attach normally at the superior aspect of the glenoid and was not torn during its course. There was small loose body present in the intra-articular aspect of the shoulder which was removed with a sucker shaver. Attention was then brought to to the subacromial space. Within the subacromial space cannulas were switched lateral portal was established through the lateral portal debridement of the footprint was performed debridement of the torn edge of the rotator cuff was performed. Rotator cuff grasper was then utilized to grasp the rotator cuff and reduce it to the footprint. This was reducible. Attention was then brought to repair the fiber tape was placed through the rotator cuff and a speed fix fashion and swivel lock was placed this process was then repeated for an additional anchor for good repair of the rotator cuff back to the footprint. Camera is then removed the joint was drained skin closed with nylon stitch sterile dressing placed patient placed in a sling and pillow taken recovery stable condition. Condition: stable Disposition: PACU Complications:: None apparent
--- NOTE | 2025-03-26 07:48 | P.PNANES_ITS ---
[facility] Anesthesia Record Part II Anesthesia Record Part II Discharge Time: 13:35 Destination: Surgical Day Care (OP Surgery) PACU nurse assessment reviewed?: Yes Patient Condition:: Good Anesthesia Complications:: None Swallowing reflex intact?: Yes Airway Patency: Patent Cyanosis?: No Blood Pressure: 143/72 SaO2: 94 Respiratory Rate: 16 Pulse Rate: 62 Temperature: 97 F Mental Status: Alert & Oriented Pain level:: 0 Nausea and/or vomitting:: None Intake, IV Amount: 0 Hydration: Adequate
[2025-03-26 07:49] VITALS: BP 143/72; PULSE 62; RESP 16; TEMP 36.1; O2SAT 94
== END 2025-03-25 14:07 | disposition home or self-care (01) ==
PROVIDERS: PCP Family Medicine; Visit Provider Orthopaedic Surgery
PROC: (CPT 29805; principal; 2025-03-25 11:00)
DX: M75.120 Complete rotator cuff tear or rupture of unspecified shoulder, not specified as traumatic (principal); M24.011 Loose body in right shoulder; J44.89 Other specified chronic obstructive pulmonary disease; E78.5 Hyperlipidemia, unspecified; I10 Essential (primary) hypertension; F32.A Depression, unspecified; F17.210 Nicotine dependence, cigarettes, uncomplicated; Z88.0 Allergy status to penicillin; Z79.899 Other long term (current) drug therapy
CPT/HCPCS: 29827; 64415; 96374; C1713; J0169; J0666; J0736; J1100; J2003; J2250; J2405; J2704; J3010; J7120

== ENCOUNTER 2025-06-04 15:01 | Outpatient (CLI) | payer MEDICARE, BC, SELFPAY ==
--- NOTE | 2025-06-04 15:05 | MM_ITS ---
PROCEDURE INFORMATION: Exam: MG Bilateral Screening 3D Mammography Exam date and time: 06/04/2025 3:08 PM Age: 69 years old Clinical indication: Screening examination. A maternal cousin had breast cancer. TECHNIQUE: Imaging protocol: Bilateral Screening tomosynthesis and 2D mammography including computer-aided detection (CAD) when performed. COMPARISON: 1. MG MM DIG SCREENING MAMM BI W/CAD 05/17/2024 1:30 PM 2. MG MM DIG SCREENING MAMM BI W/CAD 05/04/2023 1:05 PM 3. MG MM DIG SCREENING MAMM BI W/CAD 04/13/2022 1:10 PM FINDINGS: MAMMOGRAPHY: Breast composition: The breasts are heterogeneously dense, which may obscure small masses. Mass: None. Architectural distortion: None. Calcifications: No suspicious calcifications. Asymmetric density: None. Skin thickening: None. Axillary adenopathy: None. IMPRESSION: No mammographic evidence of malignancy. Annual screening is recommended unless otherwise clinically indicated. ASSESSMENT: BI-RADS Category 1: Negative.
--- OUTSIDE RECORDS SUMMARY | 2025-06-04 15:05 | XMS_ITS ---
Laboratory report Created on: May 27, 2025 NUPUR HAWKINS : 1955 Sex: Female Author Name ALEKSANDR VERA [facility] Unknown PROBLEMS Problems List Code Description Z12.4 RESULTS Laboratory Orders Date Order Code Test 2025-05-21 [id number] PAP LB (LIQUID-B ASED) Laboratory Results Date LOINC Test Value Unit Reference Range Interpre tation 2025-05-21 [id number] DIAGNOSIS: NEGATIVE FOR INTRAEPITHELIAL LESION OR MALIGNANCY. 2025-05-21 [id number] NIL 2025-05-21 [id number] NOTE: PAPSMR
--- OUTSIDE RECORDS SUMMARY | 2025-06-04 15:05 | XMS_ITS | Clinical Summary ---
Author Organization [facility] Address [address] [place], [place] [id number] Care Team Providers Care Fire Assistant Name Role Phone Aramis Miller MD Primary Care Provider [phone] Immunizations Immunization Administration Dates Next Due Influenza, [...] 10/14/2025 3:00 PM EDT Ovarian Cancer Screening [facility] [address] [facility] [place] [id number] Health Maintenance Due Date [...] 2004 UKY-Zoster Vaccines (1 of 2) 2004 [id number] Vaccine ( season) 2025 06/19/2024, 05/04/2023, 11/22/2021, Additional history exists UKY-Influenza [...] complete this topic Insurance MEDICARE Care Teams Fire Assistant Relationship Specialty Start Date End Date Aramis Miller MD [address] [place] [address] PCP - General 10/08/24
== END 2025-06-04 23:59 | disposition home or self-care (01) ==
LOC: RAD 15:03
PROVIDERS: PCP Nurse Practitioner; Visit Provider Nurse Practitioner
DX: Z12.31 Encounter for screening mammogram for malignant neoplasm of breast (principal); R92.333 Mammographic heterogeneous density, bilateral breasts
CPT/HCPCS: 77063; 77067

== ENCOUNTER 2025-06-06 14:00 | Outpatient (RCR) | payer MEDICARE, BC, SELFPAY ==
--- NOTE | 2025-05-23 16:19 | HMH.OTOPEV ---
OT Evaluation Rehab OT Outpatient Eval Start: 05/23/25 15:07 Freq: Status: Active Protocol: Document 05/23/25 15:58 CHRISMURPHY (Rec: 05/23/25 16:16 MERCEDES [id number]) E-signed By Adele Naqvi, OT Outpatient Therapy Subjective History Subjective History Patient is currently 8 weeks post-operative following repair of a complete supraspinatus tear. Surgical incision site healed without signs of infection. Mild tightness noted in right shoulder with passive ROM. AAROM within post-op protocol limits. Patient demonstrates guarded movement during shoulder flexion. No pain behaviors observed during session. Educated patient on proper positioning, pendulum exercises, and gentle AAROM within pain-free range. Patient presents with decreased R shoulder AROM, strength, and functional use following rotator cuff repair. Continued skilled OT services are indicated to promote safe progression of motion, improve strength, and restore independence with ADLs/IADLs. Patient demonstrating good understanding of precautions and compliance with HEP. New diagnosis of No cancer in past 12 months? Chief Complaint Pain Symptom Type Ache,Numbness,Tingling Symptoms Relieved By Nothing Symptoms Aggravated Physical Activity By Prior Functional None Limitations Current Functional Reaching,Lifting,Recreation Activity Limitations Symptom Description Constant and Continuous Level of pain today 3 (0-10) Pain scale - at its 3 best (0-10) Pain scale - at its 9 worst (0-10) Shoulder/Elbow Eval Shoulder Objective Measurements Shoulder ROM Right Shoulder Abduction 0 Active Range of Motion (degrees) Shoulder Flexion 40 Active Range of Motion (degrees) Query Text: Shoulder Flexion 80 Passive Range of Motion (degrees) Shoulder External 0 Rotation Active Range of Motion ( degrees) Shoulder Internal 0 Rotation Active Range of Motion ( degrees) Shoulder Extension 0 Active Range of Motion (degrees) pain with active ROM right shoulder exam standard Shoulder MMT Anterior Deltoid 2 Poor Strength Grade Shoulder Abduction 2 Poor Strength Grade Shoulder Extension 2 Poor Strength Grade Shoulder Flexion 2 Poor Strength Grade Shoulder Horizontal 2 Poor Abduction Strength Grade Infraspinatus/Teres 2 Poor Minor Strength Grade Shoulder External 2 Poor Rotation Strength Grade Shoulder Internal 2 Poor Rotation Strength Grade Elbow Objective Measurements QuickDASH Activities Please rate your ability to do the following activities in the last week by selecting the number below the appropriate response. 1. Open a tight or Unable new jar. 2. Do heavy Unable tutor coordinator (e. g., wash walsh, floors). 3. Carry a shopping Severe difficulty bag or briefcase. 4. Wash your back. Unable 5. Use a knife to Severe difficulty cut food. 6. Recreational Unable activities in which you take some force or impact through your arm, shoulder, or hand (e.g., golf, hammering, tennis, etc.). 7. During the past Quite a bit week, to what extent has your arm, shoulder or hand problem interfered with your normal social activities with family, friends , neighbors or groups? 8. During the past Very limited week, were you limited in your work or other regular daily activites as a result of your arm, shoulder or hand problem? 9. Arm, shoulder or Severe hand pain. 10. Tingling (pins Moderate and needles) in your arm, shoulder or hand. 11. During the past So much difficulty that I can't sleep week, how much difficulty have you had sleeping because of the pain in your arm, shoulder or hand? Quick DASH 48 OT Patient Goals OT Patient Goals OT Short Term 1. Patient will demonstrate independence with post- Patient Goals operative home exercise program (HEP) to promote safe progression of shoulder mobility. 2. Patient will increase R shoulder passive range of motion (PROM) by =20? in flexion and abduction to improve ease with self-care tasks. 3. Patient will verbalize understanding of activity precautions and proper positioning strategies to prevent reinjury. 4. Patient will tolerate AAROM exercises for 10?15 reps with minimal verbal cueing and no increase in pain. Patient will achieve functional R shoulder AROM (=140? flexion, =120? abduction) to enable overhead reaching and grooming tasks independently. OT Environmental Scientists Patient 1. Patient will improve R UE strength to 2+/5 in all Goals planes to support independence with ADLs/IADLs. 2. Patient will report ability to perform dressing, bathing, and light household activities using R UE with minimal to no discomfort. 3. Patient will demonstrate proper body mechanics and joint protection techniques during functional reaching and lifting activities. 4.Patient will achieve functional R shoulder AROM (=100 ? flexion, =90? abduction) to enable overhead reaching and grooming tasks independently. OT Outpatient Assessment Impairments Problems/Impairments Impaired Range of Motion,Impaired Strength,Impaired Household Care,Impaired Recreational Activities, Subjective C/O Pain Prognosis Rehab Potential Good Clinical Impression Consistent with Yes Diagnosis Outpatient Therapy Plan of Care Treatment Plan May Include Therapeutic Exercise Yes Including Home Exercise Program Manual Therapy Yes Techniques Therapeutic Yes Activities to Return to Previous Functional/Work Level Thermal Modalities Yes Electrical Yes Stimulation Ultrasound/ Yes Phonophoresis Iontophoresis Yes Eval/Re-Eval Yes Frequency Times per week 2x/wk Duration Number of Weeks 4 weeks Addendums This patient is a No candidate for social or vocational rehab ? Patient/Guardian Yes verbally acknowledges understanding of treatment program and consents to further treatment? Patient/Guardian Yes verbally acknowledges understanding of diagnosis, prognosis and goals for treatment? Eval Complexity OT Charge 36874 - Low Complexity PHYSICIAN CERTIFICATION: I certify the specified therapy services for Bianca Gutierrez are required, authorized, and reviewed every 30 days.
== END 2025-06-06 23:59 | disposition home or self-care (01) ==
LOC: OT 14:00
PROVIDERS: Visit Provider Orthopaedic Surgery
DX: Z47.89 Encounter for other orthopedic aftercare (principal); Z98.890 Other specified postprocedural states
CPT/HCPCS: 97014; 97032; 97035; 97110; 97140; 97165; 97530; G0283

== ENCOUNTER 2025-06-12 14:17 | Outpatient (CLI) | payer MEDICARE, BC, SELFPAY ==
--- NOTE | 2025-06-12 14:19 | CT_ITS ---
FINAL REPORT TECHNIQUE: Thin section axial images were obtained from the lung apices to the upper abdomen by computed tomography. Reformatted images were obtained and reviewed. This study was performed with techniques to keep radiation doses al low as reasonably achievable (ALARA). Individualized dose reduction techniques using automated exposure control or adjustment of mA and/or kV according to the patient's size were employed. CLINICAL HISTORY: lung cancer screening. SMOKER 1PPD FOR 27 YEARS. COMPARISON: 06/10/2024 FINDINGS: CHEST CT LOW DOSE 70-year-old female, current smoker, 15-[id number]-dhfa history. CTDI vol (mGy): 2.90 DLP (mGy-cm): 112.03 There is no axillary adenopathy. There is no mediastinal or hilar mass or adenopathy. There are calcified right paratracheal and right hilar lymph nodes. The heart is normal in size. There is no pericardial or pleural effusion. Moderate changes of centrilobular emphysema are present. There is scarring present at the lung bases. Lung window images demonstrate a noncalcified nodule in the anterior right middle lobe, 5 mm in size, best seen on image #62 of series 4. This nodule is stable when compared to the prior exam of 06/10/2024. Limited images of the upper abdomen are unremarkable. IMPRESSION: Lung-RADS category 2. Recommend 12 month follow up low dose chest CT. Reviewed, Interpreted and Dictated by Mark Culp MD Transcribed by Su Black Authenticated and . [facility]
--- OUTSIDE RECORDS SUMMARY | 2025-06-12 14:20 | XMS_ITS | Data Portability ---
Author Organization [facility] Address [address] [place] [address] Assessment Encounter Date Assessment Date Assessment LastModified [...] prn - will notify with lab results. [email or web address] Not available 01/29/2024 22:46:34 Plan of Treatment Reminders Order Date Submit Date Provider Last Modified By Organization Details Last Modified Time Details Appointments None recorded. Lab iron + TIBC + ferritin, serum 2023 024 HEIDI [facility], [address], [address], [place], [address], 4 11:12:48 CBC 2023 024 HEIDI [facility], [address], [address], [place], [address], 4 11:12:49 CMP, serum or plasma 2023 024 HEIDI [facility], [address], [address], [place], [address], 4 11:12:48 Referral None recorded. Procedures None [...] symptoms of lung cancer)? YES 2022 023 [facility] (Centralized Scheduling), [address], [place], [address], 3 14:35:08 Medication Orders Ventolin HFA 90 mcg/actuati on aerosol inhaler 2022 023 [id number], [address], [phone], 3 13:39:36 Symbicort 160 mcg-4.5 mcg/actuati on HFA aerosol inhaler 2022 023 [facility][id number], [address], [id number], 3 13:39:32 Patient TargetsNo targets recorded. Patient Instructions Encounter Date Encounter Id Patient Instructions Last Modified By Organization Details Last Modified Time 10/18/2022 [id number] smoking cessatio n counseling, greater than 3 minutes up to 10 minutes* [email or web address] Not available 10/18/2022 13:39:26 Reason for Referral None Reported. Results Created Date Observation Date Name Description Value Unit Range Abnormal Flag Note LastModifiedBy Organization Detail LastModifiedTime 01/29/20 24 01/30/2024 FE+TI BC+FE R iron bind.cap.(TI BC) 421 ug/dL 250-45 0 Not Available [facility] ([facility]) [address] [place], [address], 01/30/2024 11:12:48 01/29/20 24 01/30/2024 FE+TI BC+FE R UIBC 342 ug/dL 118-36 9 Not Available [facility] ([facility]) [address] [place], [address], 01/30/2024 11:12:48 01/29/20 24 01/30/2024 FE+TI BC+FE R iron 79 ug/dL 27-139 Not Available [facility] ([facility]) [address] [place], [address], 01/30/2024 11:12:48 01/29/20 24 01/30/2024 FE+TI BC+FE R iron saturation 19 % 15-55 Not Available [facility] ([facility]) [address] [place], [address], 01/30/2024 11:12:48 01/29/20 24 01/30/2024 FE+TI BC+FE R ferritin 20 NG/mL 15-150 Not Available [facility] ([facility]) [address] [place], [address], 01/30/2024 11:12:48 01/29/20 24 01/30/2024 COMP. METAB OLIC PANEL (14) glucose 86 mg/dL 70-99 Not Available [facility] ([facility]) [address] [place], [address], 01/30/2024 11:12:48 01/29/20 24 01/30/2024 COMP. METAB OLIC PANEL (14) BUN 15 mg/dL 8-27 Not Available [facility] ([facility]) [address] [place], [address], 01/30/2024 11:12:48 01/29/20 24 01/30/2024 COMP. METAB OLIC PANEL (14) creatinine 0.93 mg/dL 0.57-1 .00 Not Available [facility] ([facility]) [address] [facility] [place], [address], 01/30/2024 11:12:48 01/29/20 24 01/30/2024 COMP. METAB OLIC PANEL (14) eGFR 67 mL/mi n/1.7 3 >59 Not Available [facility] ([facility]) [address] [facility] [place], [address], 01/30/2024 11:12:48 01/29/20 24 01/30/2024 COMP. METAB OLIC PANEL (14) BUN/creatini ne ratio 16 12-28 Not Available [facility] ([facility]) [address] [facility] [place], [address], 01/30/2024 11:12:48 01/29/20 24 01/30/2024 COMP. METAB OLIC PANEL (14) sodium 140 mmol/ L 134-14 4 Not Available [facility] ([facility]) [address] [facility] [place], [address], 01/30/2024 11:12:48 01/29/20 24 01/30/2024 COMP. METAB OLIC PANEL (14) potassium 4.9 mmol/ L 3.5-5. 2 Not Available [facility] ([facility]) [address] [place], [address], 01/30/2024 11:12:48 01/29/20 24 01/30/2024 COMP. METAB OLIC PANEL (14) chloride 104 mmol/ L 96-106 Not Available [facility] ([facility]) [address] [place], [address], 01/30/2024 11:12:48 01/29/20 24 01/30/2024 COMP. METAB OLIC PANEL (14) carbon dioxide, total 24 mmol/ L 20-29 Not Available [facility] ([facility]) [address] [place], [address], 01/30/2024 11:12:48 01/29/20 24 01/30/2024 COMP. METAB OLIC PANEL (14) calcium 9.6 mg/dL 8.7-10 .3 Not Available [facility] ([facility]) [address] [place], [address], 01/30/2024 11:12:48 01/29/20 24 01/30/2024 COMP. METAB OLIC PANEL (14) protein, total 6.8 g/dL 6.0-8. 5 Not Available [facility] ([facility]) [address] [place] [place], [address], 01/30/2024 11:12:48 01/29/20 24 01/30/2024 COMP. METAB OLIC PANEL (14) albumin 4.1 g/dL 3.9-4. 9 Not Available [facility] ([facility]) [address] [facility] [place], [address], 01/30/2024 11:12:48 01/29/20 24 01/30/2024 COMP. METAB OLIC PANEL (14) globulin, total 2.7 g/dL 1.5-4. 5 Not Available [facility] ([facility]) [address] [place] [place], [address], 01/30/2024 11:12:48 01/29/20 24 01/30/2024 COMP. METAB OLIC PANEL (14) bilirubin, total 0.2 mg/dL 0.0-1. 2 Not Available [facility] ([facility]) [address] [place] [place], [address], 01/30/2024 11:12:48 01/29/20 24 01/30/2024 COMP. METAB OLIC PANEL (14) alkaline phosphatase 80 IU/L 44-121 Not Available [facility] ([facility]) [address] [facility] [place], [address], 01/30/2024 11:12:48 01/29/20 24 01/30/2024 COMP. METAB OLIC PANEL (14) AST (SGOT) 20 IU/L 0-40 Not Available [facility] ([facility]) [address] [facility], [place], [address], 01/30/2024 11:12:48 01/29/20 24 01/30/2024 COMP. METAB OLIC PANEL (14) ALT (SGPT) 20 IU/L 0-32 Not Available [facility] ([facility]) [address] [facility], [place], [address], 01/30/2024 11:12:48 01/29/20 24 01/30/2024 CBC, PLATE LET, NO DIFFE RENTI AL WBC 11.7 x10e3 /uL 3.4-10 .8 above high normal Not Available [facility] ([facility]) [address] [facility], [place], [address], 01/30/2024 11:12:49 01/29/20 24 01/30/2024 CBC, PLATE LET, NO DIFFE RENTI AL RBC 4.69 x10e6 /uL 3.77-5 .28 Not Available [facility] ([facility]) [address] [facility], [place], [address], 01/30/2024 11:12:49 01/29/2001/30/2024 CBC, PLATE LET, NO DIFFE RENTI AL hemoglobin 13.7 g/dL 11.1-1 5.9 Not Available [facility] ([facility]) [address] [place], [address], 01/30/2024 11:12:49 01/29/20 24 01/30/2024 CBC, PLATE LET, NO DIFFE RENTI AL hematocrit 43.3 % 34.0-4 6.6 Not Available [facility] ([facility]) [address] [place], [address], 01/30/2024 11:12:49 01/29/20 24 01/30/2024 CBC, PLATE LET, NO DIFFE RENTI AL MCV 92 fL 79-97 Not Available [facility] ([facility]) [address] [facility], [place], [address], 01/30/2024 11:12:49 01/29/20 24 01/30/2024 CBC, PLATE LET, NO DIFFE RENTI AL MCH 29.2 pg 26.6-3 3.0 Not Available [facility] ([facility]) [address] [facility], [place], [address], 01/30/2024 11:12:49 01/29/20 24 01/30/2024 CBC, PLATE LET, NO DIFFE RENTI AL MCHC 31.6 g/dL 31.5-3 5.7 Not Available [facility] ([facility]) [address] [facility], [place], [address], 01/30/2024 11:12:49 01/29/20 24 01/30/2024 CBC, PLATE LET, NO DIFFE RENTI AL RDW 14.0 % 11.7-1 5.4 Not Available [facility] ([facility]) [address] [place], [address], 01/30/2024 11:12:49 01/29/20 24 01/30/2024 CBC, PLATE LET, NO DIFFE RENTI AL platelets 366 x10e3 /uL 150-45 0 Not Available [facility] ([facility]) [address] [place], [address], 01/30/2024 11:12:49 01/29/20 24 01/30/2024 CBC, PLATE LET, NO DIFFE RENTI AL NRBC SCRAP HOOKER Not Available [facility] ([facility]) [address] [place], [address], 01/30/2024 11:12:49 04/20/11/24/2022 LDCT, chest , for lung fer [facility] [address] [facility] [address] [place] [address] Phone: Fax: Name: HIEU SANTA SA Exam Date: 023 : 954 Age 67 Gender : F Access ion: [id number] Physic mendy: RAMON MIRANDA Facili ty: [facility] Facili ty HSV: Outpat ient Exam: CT [...] you for referr HIEU Cordova SA to [facility] al. Legall y authen ticate d by POPE MOODY Mooney 11-24 14:22: 38 CC'ed Logic: Orderi ng Provid er: RUBEN VERA Attend ing Provid er: RUBEN VERA Referr ing Provid er: RUBEN VERA Admitt ing Provid er: RUBEN VERA [facility] [address] [place] [address], [address], 11/24/2022 14:38:54 Result Notes Documentation Provider Name and Address Organization Details Recorded Time Ldct, Chest, For Lung Cancer Screening : [address] [address] Name: BIANCA GUTIERREZ Exam Date: 11/24/2022 : 1955 Age 67 Gender: F Physician: RAMON MIRANDA Facility: [facility] Facility HSV: Outpatient Exam: CT LOW DOSE LUNG SCREENING LOW DOSE SCREENING CT SCAN OF THE CHEST WITHOUT CONTRAST COMPARISON: 08/30/2021 HISTORY: Current smoker with a [id number] history. PROCEDURE: Axial images were obtained from [...] Thank you for referring BIANCA GUTIERREZ to [facility]. Legally authenticated by POPE MOODY Mooney 2022-11-24 14:22:38 CC'ed Logic: Ordering Provider: RUBEN VERA Attending Provider: RUBEN VERA Referring Provider: RUBEN VERA Admitting Provider: RUBEN Miranda MD [address], [place], [address], [place] [facility] - [place] & [place] 11/24/2022 14:38:54 Problems Name Problem SNOMED Code Status Onset Date Resolution Date Notes Provider Name and Address Organization Details Recorded Time Chronic obstructiv e pulmonary disease 71265418 Active 2022 Ramon Miranda MD [address], [facility] [address] , [place] [facility] [place] & [place] 3 13:35:27 Dyspnea on exertion 72300626 Active 2022 Ramon Miranda MD [address], [place], [address] , [place] [facility] [place] 3 13:35:40 Tobacco dependence caused by cigarettes 9509865747815 9107 Active 2022 Ramon Miranda MD [address], [facility] [address] , [place] [facility] [place] & [place] 3 13:35:48 Angiodyspl jaiden of gastrointe stinal tract 0765214184424 07 Active 2023 Carlos Manuel Black PA-C [address], [facility] [address] , [place] [facility] - [place] & [place] 4 13:57:50 Chronic idiopathic constipati on 50121006 Active 2023 Carlos Manuel Black PA-C [address], [facility] [address] , [place] [facility] & [place] 4 14:01:48 Problem Notes None recorded. Procedures Surgical History Date Name Laterality Status Provider Name and Address Organization Details Recorded Time 4 Procedure Note completed Vivienne HUSSEIN [facility] & [place] 01/29/2024 14:14:43 2 completed Esperanza HUSSEIN [facility] & [place] 01/29/2024 14:16:34 2 Date of Last Pap Smear completed Esperanza HUSSEIN [facility] & [place] 01/29/2024 14:16:34 0 Date of Last Colonoscopy completed Esperanza HUSSEIN [facility] & [place] 01/29/2024 14:16:34 0 Most Recent Bone Density completed Esperanza HUSSEIN [facility] & [place] 01/29/2024 14:16:34 Imaging Results None recorded. Procedure Notes None recorded. Medical Equipment None Reported. Allergies Allergen ID Allergen Name Allergen Category Reaction Reaction Severity Criticality Documentation Date Start Date Code Code System Note Provider Name and Address Organization Details Recorded Time 942909 penicilli n G Not available anaphylax is rash swelling moderate severe mild Not available 01/29/2024 7980 RxNorm KEENAN Figueroa [facility] & [place] 4 14:16:33 01934 Product containin g penicilli n (product) medicatio n Not available Not available Not available 10/18/2022 22729 8001 SNOMED Una KEENAN Ramesh [facility] & [place] 3 13:09:03 Medications Name Sig Start Date [...] Address Organization Details Last Updated DateTime 3 11840.2 2 g 24.9 kg/m2 167.64 cm 97.3 [degF] 100 % 100 % 62 /min 120/77 mm[Hg] Una HUSSEIN [facility] & [place] 3 13:12:55 Date Recorded Body weight Body mass index (BMI) Body height Body temperature Heart rate Heart rate Oxygen saturation Oxygen saturation in Arterial blood by Pulse oximetry Systolic And Diastolic Provider Name and Address Organization Details Last Updated DateTime 4 73912.8 8 g 25.5 kg/m2 167.64 cm 97.9 [degF] 68 /min 65 /min 99 % 99 % 113/70 mm[Hg] Vivienne Medellin [facility] & [place] 4 13:30:10 Social History Question Answer Notes LastModified by Organizat ion Details LastModified Time Tobacco Smoking Status Current Every Day Smoker Una plascencia [place] [facility] & [place] 10/18/2022 13:10:53 Do You Have An Advance Directive? Yes Information not available 01/29/2024 Are You Blind Or Do You Have Difficulty Seeing? No Information not available 01/29/2024 What Is Your Level Of Caffeine Consumption? Heavy [email or web address] Information not available 10/18/2022 What Was The Date Of Your Most Recent Tobacco Screening? 10/15/2022 Information not available 01/29/2024 What Is Your Current Pack Years? 30ormorepack years [email or web address] Information not available 10/18/2022 At What Age Did You Start Smoking Tobacco? 34 [email or web address] Information not available 10/18/2022 Are You Passively Exposed To Smoke? No Information not available 01/29/2024 How Much Tobacco Do You Smoke? 0.5 PPD [email or web address] Information not available 10/18/2022 How Many Years Have You Smoked Tobacco? 35 Information not available 01/29/2024 Sex: Female Functional Status Question Answer Note LastModified by [employer] ion Details LastModified Time Do you use any illicit or recreational drugs? No [email or web address] Information not available 10/18/2022 What is your level of alcohol consumption? Occasional [email or web address] Information not available 10/18/2022 Do you or have you ever used smokeless tobacco? Never used smokeless tobacco Information not available 01/29/2024 What is your exercise level? Occasional Information not available 01/29/2024 Mental Status Question Answer Note LastModified by [employer] ion Details LastModified Time Do you feel stressed (tense, restless, nervous, or anxious, or unable to sleep at night)? [id number] Information not available 01/29/2024 Family History Relationship [...] Diagnosis SNOMED-CT Code Diagnosis ICD10 Code Diagnosis IMO Codes Diagnosis Note [id number] Ramon Miranda MD [facility] [address] [facility] [place] [address] 10/18/2022 12:59:43 10/18/2022 13:26:58 Chronic obstructive pulmonary disease 78614829 J44.9 Will start patient on Symbicort to [...] basis. Tobacco de pendence caused by cigarettes 3656319881 7312448 F17.210 Patient counseled extensivel y to quit smoking and will continue follow this up. Screening for malignant neoplasm of respiratory tract 698724785 Z12.2 The patient has participat ed in [...] or unexplaine d significan t weight loss). [id number] Carlos Manuel Black PA-C [facility] [address] [facility] [address] [place] [address] 01/29/2024 13:07:24 01/29/2024 14:14:52 Angiodysplasia of gastrointestinal tract 3957760517 20489 K55.20 Chronic id iopathic constipation 67824472 K59.04 History of polyp of colon 946777301 Z86.010 Health Concerns Section Related Observation LastModified by Organization Detai ls LastModified Time None Recorded Concern Status LastModified by Organization Details LastModified Time None Recorded Advance Directives Directive Y: Payers Insurance Date Sequence Insurance Name Policy Number Policy Hernandez Covered Member ID Hernandez Member ID Guarantor Name 01/29/2024 1 [place] Bianca Gutierrez [id number] Bianca Gutierrez 01/29/2024 2 [employer]-[place] BLUE CROSS - FEP [id number] Bianca Gutierrez [id number] Bianca Gutierrez Notes Date Note Type Note [...] her weight or appetite. Ramon Miranda MD [address] [facility], [place], [address], [facility] & [place] 10/18/2022 13:40:00 4 text/html Ms. Gutierrez is [...] was 14.5 while donating blood to the [facility]. She reports feeling well currently. She has chronic constipation for which she is taking Metamucil and miralax once daily. This manages her symptoms well. 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 Carlos Manuel Black PA-C [address], [place], [address], [facility] - [place] - [place] & [place] 01/29/2024 22:47:12 OBGyn Episode No OBEpisode recorded.
--- OUTSIDE RECORDS SUMMARY | 2025-06-12 14:20 | XMS_ITS | Clinical Summary ---
Author Organization [facility] Address [address] [place], [place] [address] Care Team Providers Care Efficiency Clerk Name Role Phone Aramis Miller MD Primary Care Provider [phone] Immunizations Immunization Administration Dates Next Due Influenza, [...] 10/14/2025 3:00 PM EDT Ovarian Cancer Screening [facility] [address] [facility] [place] [address] Health Maintenance Due [...] 2004 UKY-Zoster Vaccines (1 of 2) 2004 [id number] Vaccine ( season) 2025 06/19/2024, 05/04/2023, 11/22/2021, [...] complete this topic Insurance MEDICARE Care Teams Efficiency Clerk Relationship Specialty Start Date End Date Aramis Miller MD [address] [place] [address] PCP - General 10/08/24
[2025-06-12] MEDS: ALBUTEROL 0.083% 2.5 MG/3 ML NEB IH (15:31)
== END 2025-06-12 23:59 | disposition home or self-care (01) ==
LOC: RAD 14:17
PROVIDERS: PCP Nurse Practitioner; Visit Provider Internal Medicine Pulmonary Disease
DX: Z12.2 Encounter for screening for malignant neoplasm of respiratory organs (principal); F17.210 Nicotine dependence, cigarettes, uncomplicated; J44.9 Chronic obstructive pulmonary disease, unspecified; R06.09 Other forms of dyspnea
CPT/HCPCS: 71271; 94010; 94618

== ENCOUNTER 2025-07-02 15:00 | Outpatient (RCR) | payer MEDICARE, BC, SELFPAY ==
--- NOTE | 2025-06-17 12:01 | HMH.RHREAS ---
Rehab Reassessment Rehab OP Re-assessment Start: 06/09/25 12:59 Freq: Status: Active Protocol: Document 06/17/25 11:51 CHRISMURPHY (Rec: 06/17/25 11:52 CHRISMURPHY [id number]) E-signed By Adele Naqvi, OT Rehab Re-assessment Subjective Subjective My shoulder is moving better. Objective Objective Notes Patient is currently 12 weeks post-operative following repair of a complete supraspinatus tear. Surgical incision site healed without signs of infection. Mild tightness noted in right shoulder with passive ROM. AAROM within post-op protocol limits. Patient has made consistent progress towards goals, however presents with decreased R shoulder AROM, strength, and functional use following rotator cuff repair. Patient has participated in skilled OT services 2x/wk for the past 30 days with focus on returning to PLOF with R UE. Continued skilled OT services are indicated to promote safe progression of motion, improve strength, and restore independence with ADLs/IADLs. Patient demonstrating good understanding of precautions and compliance with HEP. f/u with ortho on 06/20/25. Assessment Progress Assessment Progressing as Expected Assessment Notes Evaluation: 05/23/25 3/10 pain at best 3/10 pain at worst AROM of R UE shoulder Abd: 0 Flex: 40 ER:0 IR:0 Re-evaluation 06/17/2025 0/10 pain at best 3/10 pain at worst PROM of R UE shoulder Abd:100 Flex: 100 ER: 30 IR:30 AROM of R UE shoulder Abd: 140 Flex: 135 ER: 60 IR: 20 OT Patient Goals OT Short Term STGs: Patient Goals 1. Patient will demonstrate independence with post- operative home exercise program (HEP) to promote safe progression of shoulder mobility. 2. Patient will increase R shoulder passive range of motion (PROM) 160? in flexion and abduction to improve ease with self-care tasks. 3. Patient will verbalize understanding of activity precautions and proper positioning strategies to prevent reinjury. 4. Patient will tolerate AAROM exercises for 10?15 reps with minimal verbal cueing and no increase in pain. Patient will achieve functional R shoulder AROM (=150? flexion, =150? abduction) to enable overhead reaching and grooming tasks independently. OT Jigsawyer Patient 1. Patient will improve R UE strength to 3+/5 in all Goals planes to support independence with ADLs/IADLs. 2. Patient will report ability to perform dressing, bathing, and light household activities using R UE with minimal to no discomfort. 3. Patient will demonstrate proper body mechanics and joint protection techniques during functional reaching and lifting activities. Plan Plan Continue Plan of Care Frequency of Therapy 2x/wk Duration of Therapy 4 weeks Therapeutic Exercise Yes Including Home Exercise Program Manual Therapy Yes Techniques Therapeutic Yes Activities to Return to Previous Functional/Work Level Thermal Modalities Yes Electrical Yes Stimulation Ultrasound/ Yes Phonophoresis Iontophoresis Yes Eval/Re-Eval Yes PHYSICIAN CERTIFICATION: I certify the specified therapy services for Bianca Gutierrez are required, authorized, and reviewed every 30 days.
== END 2025-07-02 23:59 | disposition home or self-care (01) ==
LOC: OT 15:00
PROVIDERS: PCP Nurse Practitioner; Visit Provider Orthopaedic Surgery
DX: Z47.89 Encounter for other orthopedic aftercare (principal); Z98.890 Other specified postprocedural states
CPT/HCPCS: 97014; 97032; 97110; 97140; 97530; G0283

== ENCOUNTER 2025-08-06 14:00 | Outpatient (RCR) | payer MEDICARE, BC, SELFPAY ==
--- NOTE | 2025-07-21 14:37 | [facility].RHREAS ---
Rehab Reassessment Rehab OP Re-assessment Start: 07/15/25 14:06 Freq: Status: Active Protocol: Document 07/21/25 14:34 MERCEDES (Rec: 07/21/25 14:37 MERCEDES [id number]) E-signed By Adele Naqvi, OT Rehab Re-assessment Subjective Subjective I want to continue therapy to get stronger. Objective Objective Notes Patient is currently 17 weeks post-operative following repair of a complete supraspinatus tear. Surgical incision site healed without signs of infection. Mild tightness noted in right shoulder with passive ROM. AAROM within post-op protocol limits. Patient has made consistent progress towards goals, however presents with decreased R shoulder AROM, strength, and functional use following rotator cuff repair. Patient has participated in skilled OT services 2x/wk for the past 30 days with focus on returning to PLOF with R UE. Continued skilled OT services are indicated to promote safe progression of motion, improve strength, and restore independence with ADLs/IADLs. Patient demonstrating good understanding of precautions and compliance with HEP. Patient has not f/u with ortho at this time. Assessment Progress Assessment Progressing as Expected Assessment Notes Evaluation: 05/23/25 3/10 pain at best 3/10 pain at worst AROM of R UE shoulder Abd: 0 Flex: 40 ER:0 IR:0 Re-evaluation 06/17/2025 0/10 pain at best 3/10 pain at worst PROM of R UE shoulder Abd:100 Flex: 100 ER: 30 IR:30 AROM of R UE shoulder Abd: 140 Flex: 135 ER: 60 IR: 20 Re-evaluation 07/21/2025 0/10 pain at best 3/10 pain at worst PROM of R UE shoulder Abd:180 Flex: 180 ER: 90 IR:70 AROM of R UE shoulder Abd: 160 Flex: 160 ER: 90 IR: 60 4-/5 OT Patient Goals OT Short Term 1. Patient will demonstrate independence with post- Patient Goals operative home exercise program (HEP) to promote safe progression of shoulder mobility. 3. Patient will verbalize understanding of activity precautions and proper positioning strategies to prevent reinjury. 4. Patient will tolerate AAROM exercises for 10?15 reps with minimal verbal cueing and no increase in pain. Patient will achieve functional R shoulder AROM (=150? flexion, =150? abduction) to enable overhead reaching and grooming tasks independently. OT Half-Way Patient 1. Patient will improve R UE strength to 4/5 in all Goals planes to support independence with ADLs/IADLs. 2. Patient will report ability to perform dressing, bathing, and light household activities using R UE with minimal to no discomfort. 3. Patient will demonstrate proper body mechanics and joint protection techniques during functional reaching and lifting activities Plan Plan Continue Plan of Care Frequency of Therapy 2x/wk Duration of Therapy 4 weeks Therapeutic Exercise Yes Including Home Exercise Program Manual Therapy Yes Techniques Therapeutic Yes Activities to Return to Previous Functional/Work Level Thermal Modalities Yes Electrical Yes Stimulation Ultrasound/ Yes Phonophoresis Eval/Re-Eval Yes PHYSICIAN CERTIFICATION: I certify the specified therapy services for Bianca Gutierrez are required, authorized, and reviewed every 30 days.
== END 2025-08-06 23:59 | disposition home or self-care (01) ==
LOC: OT 14:00
PROVIDERS: PCP Nurse Practitioner; Visit Provider Orthopaedic Surgery
DX: M25.511 Pain in right shoulder (principal)
CPT/HCPCS: 97014; 97032; 97110; 97140; 97530; G0283